=== PATIENT | male | born 1980 | race Caucasian/White ===

== ENCOUNTER → 2022-11-28 14:34 | Outpatient (BNVA) | payer OTHER, SELFPAY | PROVIDERS: Visit Provider Physician Assistant Surgical ==

== ENCOUNTER → 2023-01-02 11:20 | Outpatient (BNVA) | payer OTHER, SELFPAY | PROVIDERS: Visit Provider Surgery ==

== ENCOUNTER 2023-01-02 13:59 | Emergency (ER) | payer OTHER, SELFPAY ==
--- NOTE | ~2023-01-02 | XR_ITS ---
EXAMINATION: XR ANKLE, LEFT AND LEFT FOOT CLINICAL INFORMATION: Pain and swelling COMPARISON: None. TECHNIQUE: AP, lateral, and mortise views of the left ankle and foot were obtained. FINDINGS: 3 views of left fourth revealed no evidence of fracture or dislocation. Soft tissues are unremarkable. There is small plantar calcaneal spur. Left ankle 3 views revealed significant soft tissue swelling along the lateral malleolus, less prominent along the medial malleolus but no evidence of obvious fractures. XR/XR ankle LT 2V IMPRESSION: No fracture seen. Soft tissue swelling and plantar calcaneal spur
--- NOTE | ~2023-01-02 | XR_ITS ---
EXAMINATION: XR ANKLE, LEFT AND LEFT FOOT CLINICAL INFORMATION: Pain and swelling COMPARISON: None. TECHNIQUE: AP, lateral, and mortise views of the left ankle and foot were obtained. FINDINGS: 3 views of left fourth revealed no evidence of fracture or dislocation. Soft tissues are unremarkable. There is small plantar calcaneal spur. Left ankle 3 views revealed significant soft tissue swelling along the lateral malleolus, less prominent along the medial malleolus but no evidence of obvious fractures. XR/XR foot LT min 3V IMPRESSION: No fracture seen. Soft tissue swelling and plantar calcaneal spur
--- NOTE | 2023-01-02 14:16 | ED.LOWEXIN ---
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 Patient states that he got injured and had left hip pain, was evaluated for that and doing better. Patient states that he then tripped and now has left hip pain and left lower leg pain. Patient states that he has varicose veins but has never been evaluated for them. Patient denies any dizziness, lightheadedness, abdominal pain, nausea, vomiting, fever, chills, blurry vision, double vision, loss of vision, chest pain, difficulty breathing, shortness of breath, back pain, night sweats, pain with urination, increased urinary frequency, increased urinary urgency, blood in his urine or stool, syncope or a near syncopal episode, bowel incontinence, bladder incontinence, bowel retention, bladder retention, or any other complaints at this time. MD complaint: leg injury Onset (ago): day(s) Severity: mild Severity scale (1-10): 3 Related Data Home Medications Medication Instructions Recorded Confirmed ibuprofen 800 mg tablet 800 mg PO Q8H 01/02/23 01/02/23 multivitamin 1 tab PO DAILY 01/02/23 01/02/23 tumeric 100 mg-fernando 150 mg-olive cap PO 01/02/23 01/02/23 50 mg-oreg 150 mg-caprylate capsule Previous Rx's Medication Instructions Recorded prednisone 20 mg tablet 20 mg PO DAILY 7 days #7 tabs 01/02/23 Allergies Allergy/AdvReac Type Severity Reaction Status Date / Time No Known Allergies Allergy Verified 01/02/23 11:37 Review of Systems Constitutional: Constitutional: Reports no additional constitutional complaints, Denies chills, Denies fever(s) and Denies night sweats Eyes: Eyes: Reports no additional eye complaints, Denies blurry vision, Denies change in vision, Denies diplopia, Denies eye discharge, Denies loss of vision and Denies eye pain ENT: Denies dizziness Cardiovascular: Cardiovascular: Reports no additional cardiovascular complaints, Denies chest pain, Denies lightheadedness, Denies Loss of Consciousness and Denies dyspnea Respiratory: Respiratory: Reports no additional respiratory complaints and Denies dyspnea Gastrointestinal: Gastrointestinal: Reports no additional gastrointestinal complaints, Denies abdominal pain, Denies melena, Denies hematochezia, Denies change in bowel habits and Denies change in stool character Genitourinary: Genitourinary: Reports no additional male genitourinary complaints, Denies hematuria, Denies oliguria, Denies difficulty urinating, Denies dysuria, Denies urinary frequency, Denies urinary hesitancy, Denies urinary incontinence and Denies urinary urgency Musculoskeletal: Musculoskeletal: Reports no additional musculoskeletal complaints, Denies numbness and Denies tingling Comments: left lower leg pain, hip pain Neurologic: Denies dizziness, Denies loss of vision, Denies numbness and Denies tingling Psychiatric: Psychiatric: Reports no additional psychiatric complaints Endocrine: Endocrine: Reports no additional endocrine complaints Hematologic/Lymphatic: Hematologic/Lymphatic: Reports no additional hematologic/lymphatic complaints Allergic/Immunologic: Allergic/Immunologic: Reports no additional allergic/immunologic complaints [facility] Past Medical History Attestation statement: The following information was validated with the patient. Source: old records reviewed and nursing notes reviewed Surgical History Hx of carpal tunnel repair Family History Family History Mother No problems noted. Father No problems noted. Social History Social History Alcohol intake: current Alcohol intake frequency: holidays/special occasions only Patient Tobacco Use Status: Former Tobacco user Cigarettes Per Day: 9 Advance Directives: No Advance Directives Information Provided: No Physical Exam Vital Signs: Vital Signs: Last Vital Signs Temp 98.2 F 01/02/23 14:17 Pulse 82 01/02/23 14:17 Resp 16 01/02/23 14:17 BP 183/73 H 01/02/23 14:17 Pulse Ox 96 01/02/23 14:17 O2 Del Method Room Air 01/02/23 14:17 BMI result Body Mass Index 74.9 Const: General: cooperative, no acute distress, alert and awake Nutritional Appearance: well nourished Orientation/consciousness: patient oriented x3 Limitations: no limitations HEENT: Head: Yes normal to inspection and Yes atraumatic Ears: hearing grossly normal bilaterally and external ears normal General nose exam: Normal external nose present, no nasal discharge noted and no epistaxis Face and sinus: Yes normal facial exam, No abrasion and No laceration Mouth: Normal oral and palatal mucosa present, no drooling and no muffled voice Eyes: General: appearance normal, both eyes and all related structures Periorbital: periorbital findings normal Eyelids: Yes eyelids normal Conjunctivae: conjunctivae normal Pupils: Equal, round and reactive pupils present EOM: EOMs intact bilaterally Neck: Neck: Yes normal visual inspection, Yes full ROM and Yes no lymphadenopathy Chest: Chest palpation & inspection: normal inspection of the chest Resp: Effort & Inspection: normal respiratory effort and able to speak in complete sentences GI: Inspection: Yes normal to inspection Neuro: General: patient oriented x3 and moves all extremities Cranial nerves: Yes Equal, round and reactive pupils present Cognition (Neuro): normal cognition Motor exam (neuro): 5/5 motor strength present throughout Sensory Exam: Normal double simultaneous stimulation for sensation Coordination: ywdwyx-hg-[id number] test normal Extrem: Other: patient has left lower leg varicose veins General: Yes full ROM and Yes capillary refill normal Psych: Appearance: grossly normal Mental Status: mental status grossly normal Affect: normal affect Attitude: cooperative Thought process: Normal thought process present Thought content: Normal thought content present Insight: Good insight present (Psych) Course Course Course Narrative: This is a rapid medical exam. Deferred additional HPI, ROS, PE to primary provider. 42 yo male with history of obesity here with left hip pain with radiation down left leg after a work injury (fall) several weeks ago. Seen by [facility] and had x-rays but patient feels they aren't managing him appropriately. States they released me. They checked by hip but most of the pain is lower leg which they didn't check. WIll check x-rays VSS Medications Administered Discontinued Medications Generic Name Dose Route Start Last Admin Trade Name Freq PRN Reason Stop Dose Admin Ketorolac Tromethamine 15 mg 01/02/23 15:27 01/02/23 15:33 Ketorolac Tromethamine 15 Mg/Ml Vial IM 01/02/23 15:28 15 mg ONCE ONE Administration Medical Decision Making Medical Decision Making MDM Narrative: Patient is a 42 year old assigned male at with no reported medical history presenting to the emergency department today with left lower leg and left hip pain. Patient's physical exam was as noted in the physical exam portion of this chart. Patient's left foot and ankle x-ray showed no acute process. Patient's clinical presentation is most consistent with left lower extremity pain. I explained my physical exam findings as well as all test results to the patient. I answered all questions asked by the patient. Patient received IM Toradol which he stated helped his pain significantly. I stressed the importance of the patient taking his medication as prescribed. I stressed the importance of the patient following up with his primary care provider and an orthopedic provider. I stressed the importance of the patient returning to the emergency department immediately if his symptoms were to worsen or if he were to develop any dizziness, shortness of breath, difficulty breathing, chest pain, blurry vision, loss of vision, nausea, vomiting, abdominal pain, fever, chills, back pain, or any other complaints. Patient verbalized agreement and understanding with this treatment plan and discharge. Differential Diagnosis Differential Diagnoses: The differential diagnosis associated with the presentation includes left lower extremity pain, left lower leg pain Independent Interpretation I performed an independent interpretation of an: Plain X-Ray Interpretation: My interpretation is in agreement with the radiologist's impression of these imaging studies. EXAMINATION: XR ANKLE, LEFT AND LEFT FOOT CLINICAL INFORMATION: Pain and swelling COMPARISON: None. TECHNIQUE: AP, lateral, and mortise views of the left ankle and foot were obtained. FINDINGS: 3 views of left fourth revealed no evidence of fracture or dislocation. Soft tissues are unremarkable. There is small plantar calcaneal spur. Left ankle 3 views revealed significant soft tissue swelling along the lateral malleolus, less prominent along the medial malleolus but no evidence of obvious fractures. XR/XR foot LT min 3V IMPRESSION: No fracture seen. Soft tissue swelling and plantar calcaneal spur Dictated By: Angela Santso MD Signed By: Electronically signed by Angela Santos MD 01/02/23 1946 Discharge Plan Discharge Clinical Impression: Acute leg pain Patient Disposition: Home, Self-Care Instructions: Leg Pain (ED) Additional Instructions: Follow up with your primary care provider, a vascular surgeon for your varicose veins, and an orthopedic provider for your left lower leg pain. Return to the emergency department immediately if your symptoms worsen or if you develop any dizziness, shortness of breath, difficulty breathing, chest pain, blurry vision, loss of vision, nausea, vomiting, abdominal pain, fever, chills, back pain, or any other complaints. Prescriptions: New prednisone 20 mg tablet 20 mg PO DAILY 7 Days Qty: 7 0RF No Action ibuprofen 800 mg tablet 800 mg PO Q8H multivitamin Tablet 1 tab PO DAILY vevxtiq-svms-scrlr-oreg-capryl 100 mg-150 mg- 50 mg-150 mg capsule PO Referrals: [facility] [place] [facility] [place]Provider Group] (Call to establish and follow up with a primary care provider. If you already have a primary care provider, please follow up with them.) [facility] [place] [facility] [Provider Group] (Call to establish and follow up with a primary care provider. If you already have a primary care provider, please follow up with them.) [facility] [place] [facility],[place] [Provider Group] (Call to establish and follow up with a primary care provider. If you already have a primary care provider, please follow up with them.) [facility] [place] Orthopedic Surgeons [Provider Group] (Call to establish and follow up with an orthopedic provider for your left lower extremity pain.) [facility] [place] Vascular Services [Provider Group] (Call to establish and follow up on your varicose veins.) Stand Alone Forms: Work/School Release Interventions: ED Discharge Assessment Last Done: 01/02/23 15:31 Discharge Date/Time: 01/02/23 15:36 Print Language: Danish
[2023-01-02 14:17] VITALS: BP 183/73; PULSE 82; RESP 16; TEMP 36.8; O2SAT 96; BMI 74.9
[2023-01-02] MEDS: Ketorolac Tromethamine 15 MG/ML VIAL IM (15:33)
== END 2023-01-02 15:36 | disposition home or self-care (01) ==
PROVIDERS: Emergency Provider Emergency Medicine
DX: M79.605 Pain in left leg (principal); Z87.891 Personal history of nicotine dependence; Z79.899 Other long term (current) drug therapy
CPT/HCPCS: 73600; 73630; 96372; 99283; 99284; J1885

== ENCOUNTER 2023-01-09 08:51 | Outpatient (REF) | payer OTHER, SELFPAY ==
--- NOTE | ~2023-01-09 | XR_ITS ---
EXAMINATION: XR CHEST CLINICAL INFORMATION: Obesity COMPARISON: None available. TECHNIQUE: 2 views of the chest were obtained. FINDINGS: No significant abnormality is noted involving the heart, lungs, mediastinum, bony thorax or soft tissues. Degenerative changes of the spine. XR/XR chest 2V IMPRESSION: No evidence for acute disease in the chest.
--- NOTE | 2023-01-09 10:03 | ECG_ITS ---
Test Reason : morbid obesity Blood Pressure : / mmHG Vent. Rate : 075 BPM Atrial Rate : 075 BPM P-R Int : 164 ms QRS Dur : 092 ms QT Int : 368 ms P-R-T Axes : 042 -06 042 degrees QTc Int : 410 ms Normal sinus rhythm Normal ECG No previous ECGs available Referred By: Carrillo Britton Electronically Signed By:SADIA STEWART
[2023-01-09 10:17] LABS: MANUAL DIFF FLAG NO
[2023-01-09 10:44] LABS: Basophils Percent Auto 0.2 % (0-2); Eosinophils Percent Auto 0.4 % (0-4); Hematocrit 48.4 % (42.0-52.0); Hemoglobin 15.3 g/dl (14.0-18.0); Imm Gran Abs Auto 0.04 X10*3/uL (0.00-0.03); Imm Gran Pct Auto 0.4 % (0.0-0.4); Lymphocytes Absolute Auto 2.5 X10*3/uL (1.2-4.9); Lymphocytes Percent Auto 22.4 % (20-40); Mean Corpuscular HGB Conc 31.6 g/dl (31.0-36.0); Mean Corpuscular Hemoglobin 30.5 pg (27.0-33.0); Mean Corpuscular Volume 96.4 fL (80.0-98.0); Mean Platelet Volume 10.9 fL (9.4-12.4); Monocytes Absolute Auto 0.7 X10*3/uL (0.1-1.2); Monocytes Percent Auto 6.5 % (2-11); Neutrophils Absolute Auto 7.7 x10*3/uL (2.0-8.3); Neutrophils Percent Auto 70.1 % (45-73); Platelet Count 207 X10*3/uL (160-400); Red Blood Count 5.02 X10*6/uL (4.60-5.80); Red Cell Distribution Width 13.4 % (11.0-16.0)
[2023-01-09 10:55] LABS: Estimated Average Glucose 126 mg/dL
[2023-01-09 12:30] LABS: Alanine Aminotransferase 22 U/L (0-40); Albumin Level 3.7 g/dL (3.5-5.0); Alkaline Phosphatase 74 U/L (39-117); Anion Gap 13 (12-20); Aspartate Amino Transferase 19 U/L (5-37); Bilirubin Total 0.7 mg/dL (0.0-1.0); Blood Urea Nitrogen 13 mg/dL (9-16); C Reactive Protein 1.27 mg/dL (< or = 0.50); Calcium 8.5 mg/dL (8.4-10.2); Carbon Dioxide 28 mmol/L (22-29); Chloride 103 mmol/L (96-108); Cholesterol 150 mg/dL; Estimated Glomerular Filt Rate > 60; Glucose Random 93 mg/dL (60-115); HDL Cholesterol 43 mg/dL; Iron 113 mcg/dL (45-160); LDL Cholesterol Calculated 96 mg/dl; Percent Iron Saturation 45 % (15-50); Potassium 4.1 mmol/L (3.3-5.1); Sodium 140 mmol/L (135-145); Total Iron Binding Capacity 251 mcg/dL (228-428); Total Protein 7.6 g/dL (6.5-8.0); Triglycerides 56 mg/dL; Unsaturated Iron Binding 138 ug/dL
[2023-01-09 13:07] LABS: Ferritin 180 ng/mL (20-250); Folate 14.1 ng/mL (> or = 4.0); Insulin 21 uU/mL (2-29); TSH reflex Free T4 2.33 uIU/mL (0.32-4.0); Vitamin B12 489 pg/mL (200-900); Vitamin D 25-OH Total 23.9 ng/mL (>30)
[2023-01-12 14:32] LABS: Calcium (PTHI) 8.5 mg/dL (8.6-10.3); PTHI 73 pg/mL (16-77)
[2023-01-13 09:15] LABS: H Pylori Breath Test Negative (Negative)
[2023-01-13 12:28] LABS: Zinc 56 mcg/dL (60-130)
[2023-01-15 12:14] LABS: Vitamin B1 12 nmol/L (8-30)
[2023-01-15 15:54] LABS: Vitamin A 43 mcg/dL (38-98)
== END 2023-01-09 08:52 | disposition home or self-care (01) ==
LOC: HO.XRAY 08:51
PROVIDERS: Absent Provider Surgery; Visit Provider Physician Assistant
DX: Z01.818 Encounter for other preprocedural examination (principal); E66.01 Morbid (severe) obesity due to excess calories; Z68.45 Body mass index [BMI] 70 or greater, adult; K42.9 Umbilical hernia without obstruction or gangrene; G47.8 Other sleep disorders
CPT/HCPCS: 36415; 71046; 80053; 80061; 82306; 82607; 82728; 82746; 83013; 83036; 83525; 83540; 83970; 84425; 84443; 84590; 84630; 85025; 86140; 93005

== ENCOUNTER → 2023-01-23 13:56 | Outpatient (BNVA) | payer OTHER, SELFPAY | PROVIDERS: Referring Provider Physician Assistant; Visit Provider Dietitian, Registered | DX: E66.01 Morbid (severe) obesity due to excess calories (principal); Z68.45 Body mass index [BMI] 70 or greater, adult; Z71.3 Dietary counseling and surveillance | CPT/HCPCS: 97802 ==

== ENCOUNTER 2023-01-30 10:30 | Outpatient (AMB) | payer OTHER, SELFPAY ==
[2023-01-30 10:32] VITALS: BP 119/58; PULSE 80; TEMP 36.3; O2SAT 98; BMI 71.1
--- NOTE | 2023-01-30 10:32 | A.OFFVIS_ITS ---
Intake VS Expanded 01/30/23 10:32 Height 5 ft 10 in Weight 495 lb 9.6 oz BMI 71.1 BP 119/58 L Blood Pressure Location Rt brachial Blood Pressure Position Sitting Pulse 80 Pulse Source Pulse Oximeter Temp 97.3 F Temperature Source Temporal Artery Scan Pulse Oximetry 98 Oxygen Delivery Method Room Air Body Fat 273.2 Body Fat Percentage 55.1 Free Fat Mass 222.4 Muscle Mass 211.6 Visceral Mass 53.0 Water Mass 178.0 BMR 3,439 Intake Visit Reasons: (OV) F/U SWL Allergies No Known Allergies Allergy (Verified 01/30/23 10:36) Medication List - Last Reconciled 01/30/23 by ALEENA Kowalski-Praveen cholecalciferol (vitamin D3) 50 mcg PO DAILY multivitamin 1 tab PO DAILY nabumetone 500 mg PO BID xrxxpit-zqxa-psgrr-oreg-capryl 100 mg-150 mg- 50 mg-150 mg caps PO HPI HPI Comments History of Present Illness Details This is the patients second appt for SWL. Starting weight was 522.4 lbs on 01/02/23. TBWL is 26.6/5,1lbs or 5.1% TBWL. Pt has had 2 episodes of dizziness since starting the program.Drinks 7-8 bottles of water. Works 5d up 12 hours per day. Meal plan: wakes at 5 am coffee with monk fruit nad 2% milk 8am - shake - Premier 10:30 am - bar 1pm - vegetables with protein (turkey chickne pork cooked at home), melon or apple 4pm -yogurt 7-8 pm - shake- whey protein with2% milk 9pm - sometimes fruit or protein bar Exercise plan: none other than physical job, has alot of knee pain saw PCP and started on nabumetone Has ortho appt on 02/13 at Pre op work up completed as follows: SWL classes - appts - 02/20 appts - follow up on 02/27,enjoys both recipe books H pylori - negative Labs-vit d defic CXR and ECG - both normal ULS and UGI - orderded today PFSH Surgical History Hx of carpal tunnel repair Family History (Updated 01/23/23 @ 11:56 by MCKAYLA Burdick) Mother No problems noted. Father No problems noted. 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 Patient has low blood pressure whcih may be contributing to his dizziness episodes, will cotnineu to stay well hydrated. No changes to his mealplan - he is happy with plan. Exercise- must start - will start Kaleb Knappen wheelchair exercises 30 minuted 4d/ week for now. Sees ortho later this month for knee pain. All upcoming appt reviewed, will continue to send me his weights. Next appt 3 weeks with me. Patient is morbidly obese and is not considered stable at this time. I spent 30 minutes in total with patient reviewing/updating records, examining the patient and counseling the patient on weight management as detailed above. Orders: Orders FL upper GI w air Today E66.01 - Morbid (severe) obesity due to excess calories, Z01.818 - Encounter for other preprocedural examination US abdomen comp w elastography Today E66.01 - Morbid (severe) obesity due to excess calories, Z01.818 - Encounter for other preprocedural examination Medications: Refilled cholecalciferol (vitamin D3) 50 mcg PO DAILY 30 caps 4RF Coding Level of Care Code Est Pt Level 4 (50316) Diagnoses Morbid obesity due to excess calories E66.01
== END 2023-01-30 11:05 | disposition home or self-care (01) ==
PROVIDERS: Visit Provider Physician Assistant
DX: E66.01 Morbid (severe) obesity due to excess calories (principal); Z68.45 Body mass index [BMI] 70 or greater, adult
CPT/HCPCS: 99214

== ENCOUNTER 2023-01-30 10:30 | Outpatient (REF) | payer OTHER, SELFPAY ==
--- NOTE | ~2023-01-30 | XR_ITS ---
EXAMINATION: XR KNEE, RIGHT CLINICAL INFORMATION: Pain in right knee. COMPARISON: None available. TECHNIQUE: 2 views of the right knee. FINDINGS: There is moderate loss of medial and patellofemoral compartment joint space with moderate periarticular spurring in the patellofemoral and lateral compartments. No visible fracture, loose bodies or joint effusion seen. There is anterior soft tissue calcification along the proximal leg likely venous phleboliths. No acute fracture or dislocation seen. There is mild spurring along the anterosuperior tibial tubercle. XR/XR knee RT 2V IMPRESSION: 1. Degenerative arthritic changes medial and patellofemoral compartment with periarticular spurring. No visible acute fracture or dislocation seen. 2. There is anterior proximal leg soft tissue calcification likely venous phleboliths.
== END 2023-01-30 10:31 | disposition home or self-care (01) ==
LOC: HO.XRAY 10:30
PROVIDERS: Absent Provider Nurse Practitioner Family; PCP Nurse Practitioner Family; Visit Provider Physician Assistant
DX: M25.561 Pain in right knee (principal); E66.01 Morbid (severe) obesity due to excess calories
CPT/HCPCS: 73560

== ENCOUNTER 2023-02-13 07:42 | Outpatient (REF) | payer OTHER, SELFPAY ==
--- NOTE | ~2023-02-13 | XR_ITS ---
EXAMINATION: XR KNEE, RIGHT XR KNEE AP STANDING CLINICAL INFORMATION: Pain. COMPARISON: Radiographs dated 02/03/2023. TECHNIQUE: Lateral and axial views of the right knee were obtained. AP bilateral standing view of the knees was obtained. FINDINGS: Bony mineralization is normal. There is moderately severe asymmetric narrowing of the medial joint space compartment of the right knee. The lateral and patellofemoral joint space compartments are well-maintained. There is tricompartment peripheral osteophyte formation. There is no fracture, dislocation or significant joint effusion. The medial joint space compartment of the left knee is mildly narrowed, and the lateral joint space compartment is well-maintained. There is peripheral osteophyte formation of the lateral and medial joint space compartments of the left knee. There is a mild varus configuration of the right knee. No significant varus or valgus configuration is seen of the left knee. There are soft tissue calcifications suggesting bilateral lower extremity venous insufficiency. XR/XR knee standing BI IMPRESSION: 1. There is tricompartment osteoarthritic change of the right knee, most pronounced in the medial joint space compartment, where it is moderately severe. 2. There is a mild varus configuration of the right knee. 3. There is moderate osteoarthritic change of the medial joint space compartment of the left knee, and mild osteoarthritic change is seen of the lateral joint space compartment.
--- NOTE | ~2023-02-13 | XR_ITS ---
EXAMINATION: XR KNEE, RIGHT XR KNEE AP STANDING CLINICAL INFORMATION: Pain. COMPARISON: Radiographs dated 02/03/2023. TECHNIQUE: Lateral and axial views of the right knee were obtained. AP bilateral standing view of the knees was obtained. FINDINGS: Bony mineralization is normal. There is moderately severe asymmetric narrowing of the medial joint space compartment of the right knee. The lateral and patellofemoral joint space compartments are well-maintained. There is tricompartment peripheral osteophyte formation. There is no fracture, dislocation or significant joint effusion. The medial joint space compartment of the left knee is mildly narrowed, and the lateral joint space compartment is well-maintained. There is peripheral osteophyte formation of the lateral and medial joint space compartments of the left knee. There is a mild varus configuration of the right knee. No significant varus or valgus configuration is seen of the left knee. There are soft tissue calcifications suggesting bilateral lower extremity venous insufficiency. XR/XR knee RT 2V IMPRESSION: 1. There is tricompartment osteoarthritic change of the right knee, most pronounced in the medial joint space compartment, where it is moderately severe. 2. There is a mild varus configuration of the right knee. 3. There is moderate osteoarthritic change of the medial joint space compartment of the left knee, and mild osteoarthritic change is seen of the lateral joint space compartment.
== END 2023-02-13 07:43 | disposition home or self-care (01) ==
LOC: HO.HOSX 07:42
PROVIDERS: Visit Provider Physician Assistant
DX: M17.11 Unilateral primary osteoarthritis, right knee (principal); E66.01 Morbid (severe) obesity due to excess calories; Z68.45 Body mass index [BMI] 70 or greater, adult
CPT/HCPCS: 20610; 73560; 73565; J1040

== ENCOUNTER 2023-02-13 09:57 | Outpatient (AMB) | payer OTHER, SELFPAY ==
[2023-02-13 10:30] VITALS: BMI 103.4
--- NOTE | 2023-02-13 10:30 | MHC.OFFVIS ---
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 Patient reports he fell at work landing on his left lower side. States he is having pain in his lateral aspect of his ankle. Denies numbness and tingling in toes . Seen at an urgent center who took xrays and was told he was fit to return to work. Patient states he went back to work and his ankle pain increase. Also has right knee pain. Pain is currently a 3/10 and after work his pain increase to a 11/10 per patient. Allergies No Known Allergies Allergy (Verified 02/13/23 10:35) HPI SAP BW ARCHITECT- left lower leg pain HPI Details 42-year-old male, who is Mauritanian speaking, presents in the office today, as a new patient, for an evaluation of left ankle pain. The patient reports he fell at work landing on his left side. He claims to have pain on the lateral aspect of the left ankle. He denies numbness or tingling in his toes. He was seen at Urgent care and was told he was fit to return to work. He states he returned to work and this caused an increase in pain. Patient also reports right knee pain. He claims to have 3/10 pain, with an increase in pain after he gets off work at an 11/10. He states the knee has been hurting for a long time. [facility] Surgical History Hx of carpal tunnel repair Family History Mother No problems noted. Father No problems noted. 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 Cognitive needs: No Hearing needs: No Vision needs: Yes (Glasses) Review of Systems Const All systems reviewed & are unremarkable except as noted in HPI and below Physical Exam Vital Signs: BMI result Body Mass Index 103.4 Const General: cooperative and no acute distress Orientation/consciousness: patient oriented x3 Resp Effort & Inspection: normal respiratory effort and able to speak in complete sentences Cardio Peripheral pulses: Peripheral pulses 2+ throughout Skin General skin exam: no rashes or lesions noted Neuro General: patient oriented x3 Extrem Other: Right knee: Normal to inspection. No ecchymosis, erythema, or joint effusion. No tenderness to palpation to the medial or lateral joint lines. Full knee extension and flexion. Crepitus felt with ROM. NVI. Office Procedures Joint Injection/Drain Joint Injection/Drain Primary Site: right knee Prep: site was prepped using aseptic technique, ethochloride spray was applied and injection warnings given Injected: 80 mg of, DepoMedrol, with 8 mL of (2% plain lido ) and in the joint Approach Used: anterolateral Procedure: The patient tolerated the procedure well, but had some pain with the injection and there was some relief with the local anesthesia Coding 51898 - Large joint Procedure code (CPT) selection complete Results Reviewed Results Reviewed: 02/13/23 10:52 Lidocaine HCl 2 % MPF [Xylocaine 2 % MPF] 5 ml .ROUTE .STK-MED ONE methylPREDNISolone acetate [DEPO-MedroL] 80 mg .ROUTE .STK-MED ONE Assessment & Plan Assessment & Plan (1) Degenerative arthritis of right knee: Code(s): M17.11 - Unilateral primary osteoarthritis, right knee (2) BMI 70 and over, adult: Code(s): Z68.45 - Body mass index [BMI] 70 or greater, adult (3) Morbid obesity due to excess calories: Code(s): E66.01 - Morbid (severe) obesity due to excess calories Plan Mr. Odom is a 42-year-old male, who is Mauritanian speaking, presents in the office today, as a new patient, for an evaluation of left ankle pain. The patient reports he fell at work landing on his left side. He claims to have pain on the lateral aspect of the left ankle. He denies numbness or tingling in his toes. He was seen at Urgent care and was told he was fit to return to work. He states he returned to work and this caused an increase in pain. Patient also reports right knee pain. He claims to have 3/10 pain, with an increase in pain after he gets off work at an 11/10. He states the knee has been hurting for a long time. The patient was offered a cortisone injection in the right knee with 80 mg of DepoMedrol. The patient was explained the risk, benefits, and alternatives to receiving this injection. After receiving consent for the injection, the patient had the procedure done while in office today. The patient tolerated the procedure well with no complications. Follow up will be PRN, or sooner if needed. X-rays of the right knee which were obtained while in the office today and were reviewed by me, Janina Monroy PA-C, revealed significant osteoarthritis Orders: Orders XR knee RT 2V Today M25.569 - Pain in unspecified knee XR knee standing BI Today M25.569 - Pain in unspecified knee Patient Instructions: Scribed for Janina Monroy PA-C by Sol Mack director medical science, on 02/13/2023 at 9:59 am, EST. Your attestation Coding Level of Care Code New Pt Level 4 (54158) Diagnoses Degenerative arthritis of right knee M17.11 BMI 70 and over, adult Z68.45 Morbid obesity due to excess calories E66.01 CPT Codes Coding - 95706 Large joint: 73239 - Large joint ([id number])
== END 2023-02-13 11:08 | disposition home or self-care (01) ==
PROVIDERS: Visit Provider Physician Assistant
DX: M17.11 Unilateral primary osteoarthritis, right knee (principal); Z68.45 Body mass index [BMI] 70 or greater, adult; E66.01 Morbid (severe) obesity due to excess calories
CPT/HCPCS: 20610; 99204

== ENCOUNTER 2023-02-20 09:54 | Outpatient (REF) | payer OTHER, SELFPAY ==
--- NOTE | ~2023-02-20 | US_ITS ---
EXAMINATION: US COMPLETE ABDOMEN WITH LIVER ELASTOGRAPHY CLINICAL INFORMATION: Morbid-severe obesity. COMPARISON: None available. TECHNIQUE: Real-time imaging of the abdominal viscera. Noninvasive ultrasound liver fibrosis assessment is performed using Vera ElastPQ point quantification shear wave elastography (2D-SWE) with a C5-2 MHz transducer. Multiple elastography samples are obtained. FINDINGS: PANCREAS: Normal. The visualized pancreatic head and body are normal in appearance. The remainder of the pancreas is obscured from visualization by the overlying bowel gas. ABDOMINAL AORTA: The proximal aortic segments are normal in caliber. The mid and the distal aortic segments are not visualized. INFERIOR VENA CAVA: Visualized portions are normal. LIVER: Normal. The liver demonstrates normal size, contour and diffuse increased echogenicity. No focal lesion or intrahepatic biliary duct dilatation. The right lobe measures 20.0 cm in length. The left lobe measures 13.6 cm in length. Portal flow is hepatopedal. Shear wave liver elastography median stiffness is 0.14 m/s (reference: normal median stiffness is 1.3 m/s or less). IQR/median stiffness to assess sampling precision is 0.14 (reference: good quality data set is IQR/median stiffness of 0.15 or less). The elastography is slightly limited due to overlying bowel gas and patient's body habitus. GALLBLADDER: Normal. The gallbladder is physiologically distended without evidence of stones, sludge, polyps, wall thickening or pericholecystic fluid. COMMON BILE DUCT: Normal in caliber measuring 0.4 cm in diameter. RIGHT KIDNEY: Normal. No hydronephrosis. No renal calculi or focal parenchymal lesions. The kidney measures 14.0 cm in maximum dimension. LEFT KIDNEY: Normal. No hydronephrosis. No renal calculi or focal parenchymal lesions. The kidney measures 13.5 cm in maximum dimension. SPLEEN: Normal. The spleen measures 11.1 cm in maximum dimension. FREE FLUID: None. US/US abdomen comp w elastography IMPRESSION: Diffuse hepatic echogenicity without focal lesion. The rest of the abdominal ultrasound is unremarkable. Liver elastography: Median liver stiffness measures 2.44 m/s, suggestive of CSPH. REFERENCE: Society of Radiologists in Ultrasound Liver Stiffness Thresholds (2020): LIVER STIFFNESS THRESHOLDS: *Liver Stiffness equal or less than 1.3 m/s: High probability of being normal. *Liver Stiffness less than 1.7 m/s: In the absence of other known clinical signs, rules out compensated advanced chronic liver disease. *Liver Stiffness 1.7-2.1 m/s: Suggestive of compensated advanced chronic liver disease to severe obesity but need further test for confirmation. *Liver Stiffness over 2.1 m/s: Rules in compensated advanced chronic liver disease. *Liver Stiffness over 2.4 m/s: Suggestive of clinically significant portal hypertension. QUALITY OF DATA SET: *IQR/Median value equal or less than 0.15 implies a quality data set. *IQR/Median value over 0.15 implies a poor quality data set. SIGNIFICANT CHANGE FROM PRIOR EXAM: Significant change if liver stiffness measurement is 10% or greater from prior exam. OTHER CONSIDERATIONS: The stage of liver fibrosis may be overestimated in the setting of acute hepatitis, liver inflammation, elevated liver function tests, hepatic vascular congestion, obstructive cholestasis, non-fasting state, and infiltrative diseases such as amyloidosis and lymphoma. In some patients with NAFLD, the liver stiffness thresholds for compensated advanced chronic liver disease may be lower. In causes other than viral hepatitis and NAFLD, liver stiffness thresholds are not well established.
== END 2023-02-20 09:55 | disposition home or self-care (01) ==
LOC: HO.US 09:54
PROVIDERS: Visit Provider Physician Assistant
DX: Z01.818 Encounter for other preprocedural examination (principal); E66.01 Morbid (severe) obesity due to excess calories
CPT/HCPCS: 76705; 76981

== ENCOUNTER 2023-02-26 15:24 | Outpatient (AMB) | payer OTHER, SELFPAY ==
--- NOTE | 2023-02-26 15:25 | A.OFFVIS_ITS ---
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 TBWL of 35.8 lbs or 6.8%. Meal plan 5:30 am - coffee, 2% milk, sugar free syrup 8:30 - Premier shake 10:30 - protein bar 1 pm - caulflower rice and protein- 4d/week tuna with broccoli - other days. 4pm - yogurt Then showers and goes to bed over the last 2 weeks. Exercise - none, has physical job and is too tired.3 Pre op work up completed as follows: SWL classes -? appts - 02/20 ?- not yet ? RD appts - follow up on 02/27,enjoys both recipe books? H pylori - negative Labs-vit d defic CXR and ECG - both normal ULS and UGI - 04/24 PFSH Surgical History Hx of carpal tunnel repair Family History Mother No problems noted. Father No problems noted. 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 5;30 coffee 6am - shake 9am - shake 11 am - bar 1pm - 6 oz protien and veg 4pm - yogurt 7pm- shake Exercise - 1.5 miles 40 minutes -2d/week - probably too hard for him at this time. During the week - Kaleb Fermin videos 4d/week, if no walking then 5d/ wk. Will reschedule BH now, sees RD tomorrow. Me in 3 weeks. Coding Level of Care Code Est Pt Level 4 (09606) Diagnoses Morbid obesity due to excess calories E66.01
[2023-02-26 15:27] VITALS: BP 151/69; PULSE 87; TEMP 36.5; O2SAT 96; BMI 69.8
== END 2023-02-26 16:33 | disposition home or self-care (01) ==
PROVIDERS: Visit Provider Physician Assistant
DX: E66.01 Morbid (severe) obesity due to excess calories (principal)
CPT/HCPCS: 99214

== ENCOUNTER → 2023-02-26 15:51 | Outpatient (REF) | payer OTHER, SELFPAY | LOC: HO.SL 15:51 | PROVIDERS: PCP Nurse Practitioner Family; Visit Provider Surgery | DX: G47.33 Obstructive sleep apnea (adult) (pediatric) (principal); G47.8 Other sleep disorders; R06.83 Snoring | CPT/HCPCS: 95806 ==

== ENCOUNTER → 2023-02-26 16:03 | Outpatient (BNV) | payer OTHER, SELFPAY | PROVIDERS: PCP Nurse Practitioner Family; Visit Provider Internal Medicine | DX: G47.33 Obstructive sleep apnea (adult) (pediatric) (principal) | CPT/HCPCS: 95806 ==

== ENCOUNTER 2023-02-27 13:49 | Outpatient (AMB) | payer OTHER, SELFPAY ==
--- NOTE | 2023-02-27 13:52 | MHC.AMNUTRGE ---
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 pt notes he wasn't following his plan because he is very tired of the shakes/bars . sometimes would get home from work and shower, and go right to bed without having a shake. 5;30 coffee ?6am - Premier shake - wants to use body fortress because it is cheaper. Looked at nutrition label together and explained 1 scoop is 30g protein. ?9am - shake 11 am - Pure protein bar ?1pm - 6oz protein and veg - he made the rice and beans recipe in the program recipe book and thought it was very good. 4pm - yogurt 7pm- shake SWL online classes: none yet Exercise: has a very bad knee Previous weight loss methods attempted tried to pursue bariatric surgery at age 20 400# in [place] but no insurance. Second attempt in [place] and lost insurance ws dread 2007 and was 450# Diagnosis Nutrition problem #1 overweight/obesity As related to (etiology) #1 excess energy intake and physical inactivity As evidenced by (sign/symptom) #1 high BMI Monitoring/Goals Nutrition problem monitoring total energy intake, level of knowledge/skill, total PRO intake, total CHO intake and weight Outcome progress progressing Learning/Education Readiness to learn excellent Stages of change action Educational materials provided Yes Most Recent Diabetes Results: No Data to Display PFSH Surgical History Hx of carpal tunnel repair Family History Mother No problems noted. Father No problems noted. 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 Will complete online classes and f/u with me on 04/03 12pm , is seeing Virginia at 11am Coding Level of Care Code Nutr Indiv Subseq (09596) Diagnoses Morbid obesity due to excess calories E66.01 Time Spent (min) 30
== END 2023-02-27 14:27 | disposition home or self-care (01) ==
PROVIDERS: Visit Provider Dietitian, Registered
DX: E66.01 Morbid (severe) obesity due to excess calories (principal)

== ENCOUNTER → 2023-02-27 13:49 | Outpatient (BNVA) | payer OTHER, SELFPAY | PROVIDERS: Visit Provider Dietitian, Registered | DX: E66.01 Morbid (severe) obesity due to excess calories (principal); Z71.3 Dietary counseling and surveillance | CPT/HCPCS: 97803 ==

== ENCOUNTER 2023-03-20 08:24 | Outpatient (AMB) | payer OTHER, SELFPAY ==
--- NOTE | 2023-03-20 08:35 | MHC.OFFVISWM ---
Intake VS Expanded 03/20/23 08:38 Height 5 ft 10 in Weight 484 lb BMI 69.4 BP 162/78 H Blood Pressure Location Rt brachial Blood Pressure Position Sitting Pulse 70 Pulse Source Pulse Oximeter Temp 96 F L Temperature Source Tympanic Pulse Oximetry 100 Oxygen Delivery Method Room Air Body Fat 262.8 Body Fat Percentage 54.3 Free Fat Mass 221.2 Muscle Mass 221.2 Visceral Mass 51.0 Water Mass 176.8 BMR 3,400 Intake Visit Reasons: (OV) F/U SWL Allergies No Known Allergies Allergy (Verified 03/20/23 08:37) Medication List - Last Reconciled 03/20/23 by ALEENA Kowalski-Praveen cholecalciferol (vitamin D3) 50 mcg PO DAILY multivitamin 1 tab PO DAILY nfgkipm-rkmz-zhtwi-oreg-capryl 100 mg-150 mg- 50 mg-150 mg caps PO HPI HPI Comments History of Present Illness Details 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 TBWL is 38.4 lbs or 7.4%. Only 1.5 lbs lost since last appt. Has been working a lot lately - 12 hours later 5d/week. PCP - saw PCP - no BP issues there. 5:30 am - shake - Premier 30 grams 9am - Atkins - 15 grams shake 11 am- bar 1pm - 1.5 cups chick pea pasta with meat and 1 cup vegetables. Crystal Light or water 4pm - yogurt 7-8 pm -Premeir shake - may skip if VERY tired. States does not skip any of the MR's No exercise due to long work hours. Had cortisone injection in R knee - with no resolution of pain. Pre op work up completed as follows: SWL classes -? appts - 02/20 ?- not yet ?- 04/03 RD appts - follow up on 02/27,enjoys both recipe books, follow up on 04/03? H pylori - negative Labs-vit d defic CXR and ECG - both normal ULS - fatty liver UGI - 04/24 SS - 03/04, needs in lab titration study for severe ANDREIA. ?Ordered urgently today. [facility] Surgical History Hx of carpal tunnel repair Family History Mother No problems noted. Father No problems noted. 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 His R knee pain is not improved after cortisone injection - he will call the Ortho dept for further treatment options due to his severe OA of both knees. Inthe meant iem I prescribed 600 mg Ibuprofen 20 minutes before exercise. On days off - start the PE sitting exercises. I will discuss his lack of weight loss with Ingrid for some guidance. Next appt with me in 3 weeks, all upcoming appts reviewed with patient. Patient is morbidly obese and is not considered stable at this time. I spent 30 minutes in total with patient reviewing/updating records, examining the patient and counseling the patient on weight management as detailed above. (2) Sleep apnea: Code(s): G47.30 - Sleep apnea, unspecified Plan: In lab titration study ordered urgently. Orders: Orders RT PSG in-lab sleep study Today G47.30 - Sleep apnea, unspecified, Z68.45 - Body mass index [BMI] 70 or greater, adult Medications: New ibuprofen 600 mg PO Q8H PRN 60 tabs 0RF pain Coding Level of Care Code Est Pt Level 4 (13032) Diagnoses BMI 70 and over, adult Z68.45 Sleep apnea G47.30
[2023-03-20 08:38] VITALS: BP 162/78; PULSE 70; TEMP 35.5; O2SAT 100; BMI 69.4
== END 2023-03-20 09:14 | disposition home or self-care (01) ==
PROVIDERS: PCP Nurse Practitioner Family; Visit Provider Physician Assistant
DX: E66.01 Morbid (severe) obesity due to excess calories (principal); Z68.44 Body mass index [BMI] 60.0-69.9, adult; G47.30 Sleep apnea, unspecified
CPT/HCPCS: 99214

== ENCOUNTER → 2023-03-20 08:24 | Outpatient (BNVA) | payer OTHER, SELFPAY | PROVIDERS: PCP Nurse Practitioner Family; Visit Provider Physician Assistant ==

== ENCOUNTER 2023-04-03 10:55 | Outpatient (AMB) | payer OTHER, SELFPAY ==
--- NOTE | 2023-04-03 12:12 | MHC.AMNUTRGE ---
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 this week worked 55 hours in 5 days straight . Recommended he log food for a few days - which he did. Showed me today. A few outliers include a full bag of microwave popped popcorn light butter , and 2 no sugar monster energy drinks. 5;30 coffee ?6am - Premier shake - powder 2 scoop with 8oz 2% milk ?9am - shake - premade premier 11 am - Pure protein bar ?1pm - doesn't measure on a scale but estimates based on how much of a package of meat he eats. 6oz protein and veg - he made the rice and beans recipe in the program recipe book and thought it was very good. Recently did a meatloaf - (24oz made 6 servings = 4oz each) 4pm - yogurt 7pm- shake powder 2 scoops 2% milk SWL online classes: 09/24 Exercise: has a very bad knee Previous weight loss methods attempted tried to pursue bariatric surgery at age 20 400# in [place] but no insurance. Second attempt in [place] and lost insurance ws dread 2007 and was 450# Dietary counseling reduction Diagnosis Nutrition problem #1 overweight/obesity As related to (etiology) #1 excess energy intake and physical inactivity As evidenced by (sign/symptom) #1 high BMI Monitoring/Goals Nutrition problem monitoring total energy intake, level of knowledge/skill, total PRO intake, total CHO intake and weight Outcome progress progressing Learning/Education Readiness to learn excellent Stages of change action Educational materials provided Yes Most Recent Diabetes Results: No Data to Display PFSH Surgical History Hx of carpal tunnel repair Family History Mother No problems noted. Father No problems noted. 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 Stick with the same products now. Has started losing weight again. recommended now dropping his AM shake, revised plan below: 5;30 coffee 8am - shake - Premier powder 2 scoops in 8oz 2% milk = 38g 11 am - Pure protein bar 20g 1pm - 4-6 oz protien and veg - get food scale = approx 35g 4pm - yogurt = 15g 7pm- shake premier powder 2 scoops in 8oz 2% milk = 38g = 146g finish online classes and f/u wtih me in 1 mo 05/08 11:30, he needs thursday appts due to work schedule. Will follow up about Wendys appointment and sleep study Coding Level of Care Code Nutr Indiv Subseq ([id number]) Diagnoses Morbid (severe) obesity due to excess calories E66.01 Time Spent (min) 30
[2023-04-03 12:49] VITALS: BMI 68.3
== END 2023-04-03 12:54 | disposition home or self-care (01) ==
PROVIDERS: Visit Provider Dietitian, Registered
DX: E66.01 Morbid (severe) obesity due to excess calories (principal)

== ENCOUNTER → 2023-04-03 10:55 | Outpatient (BNVA) | payer OTHER, SELFPAY | PROVIDERS: Visit Provider Dietitian, Registered | DX: E66.01 Morbid (severe) obesity due to excess calories (principal); Z68.44 Body mass index [BMI] 60.0-69.9, adult; Z71.3 Dietary counseling and surveillance | CPT/HCPCS: 97803 ==

== ENCOUNTER 2023-04-17 10:27 | Outpatient (AMB) | payer OTHER, SELFPAY ==
--- NOTE | 2023-04-17 10:30 | A.OFFVIS_ITS ---
Intake VS Expanded 04/17/23 10:37 BP 139/66 Blood Pressure Location Rt brachial Blood Pressure Position Sitting Pulse 81 Pulse Source Pulse Oximeter Temp 96.5 F L Temperature Source Temporal Artery Scan Pulse Oximetry 97 Oxygen Delivery Method Room Air Height 5 ft 10 in Weight 481 lb 12.8 oz BMI 69.1 Body Fat % 54.2 Body Fat Mass 261.0 Fat Free Mass 220.6 Visceral Fat Rating 50.0 Body Water % 36.7 Body Water Mass 176.6 Muscle Mass/Score 210.2 Basal Metabolic Rate/Score 3,390 Intake Visit Reasons: (OV) F/U SWL Allergies No Known Allergies Allergy (Verified 04/17/23 10:40) HPI HPI Comments History of Present Illness Details 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 No BM for 3, normally was 2 times per day. Meal plan since seeing Ingrid last - not enough money to buy products this past week. Will buy shakes again this week. Has been small portions of regular food this week. Exercise - 2 d last week - - 30 minutes. Did not look at PE videos yet. Pre op work up completed as follows: SWL classes -? 02/24 appts - 02/20 ?- not yet ?- 04/03, follow up 04/23, Mahnaz TURPIN appts - follow up on 02/27,enjoys both recipe books, follow up on 04/03, 05/08 H pylori - negative Labs-vit d defic CXR and ECG - both normal ULS - fatty liver UGI - 04/24 SS - 03/04, needs in lab titration study for severe ANDREIA. ? scheduled for 04/24 [facility] Surgical History Hx of carpal tunnel repair Family History Mother No problems noted. Father No problems noted. 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 Still not exercising - last week did for 2 days for the first time - said it was OK - standing. Pre op work up will be completed next week with UGI and SS tiration study Has follow ups with Mahnaz and Evon upcoming. Will restart meal plan. States he will try to do PE videos 4 d/week to start. I have encouraged him to text with me with exercise routine completed. Next appt with me in 3 weeks. (2) Sleep apnea: Code(s): G47.30 - Sleep apnea, unspecified Medications: New docusate sodium (Colace) 100 mg PO BID 60 caps 4RF inulin (Fiber Gummies) 2 grams PO BID 60 tabs 4RF Coding Level of Care Code Est Pt Level 4 (87630) Diagnoses Morbid obesity due to excess calories E66.01 Sleep apnea G47.30
[2023-04-17 10:37] VITALS: BP 139/66; PULSE 81; TEMP 35.8; O2SAT 97; BMI 69.1
== END 2023-04-17 11:05 | disposition home or self-care (01) ==
PROVIDERS: PCP Nurse Practitioner Family; Visit Provider Physician Assistant
DX: E66.01 Morbid (severe) obesity due to excess calories (principal); G47.30 Sleep apnea, unspecified
CPT/HCPCS: 99214

== ENCOUNTER → 2023-04-17 10:27 | Outpatient (BNVA) | payer OTHER, SELFPAY | PROVIDERS: PCP Nurse Practitioner Family; Visit Provider Physician Assistant | DX: G47.30 Sleep apnea, unspecified (principal); Z68.45 Body mass index [BMI] 70 or greater, adult ==

== ENCOUNTER 2023-04-23 12:24 | Outpatient (AMB) | payer OTHER, SELFPAY ==
--- NOTE | 2023-04-23 12:33 | A.OFFWM_ITS ---
Intake Intake Visit Reasons: (OV) BH Intake Allergies No Known Allergies Allergy (Verified 04/24/23 12:47) PFSH Surgical History Hx of carpal tunnel repair Family History Mother No problems noted. Father No problems noted. 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 PT is interested in bariatric surgery as he has always been obese and his weight got out of control the past few years. PT denied ever been in mental health counseling, and/or hospitalized/crisis, also denies any safety concerns around self/other-harm and states he has never dealt with SI/SA. However, patient reports a history of eating when depressed. Scores from BES indicate lower rosk for binge eating, however PHQ9 scores where elevated, so it will be repeated next appointment. Presenting Concerns Referral Source WMP Provider. Reason for referral Completion of behavioral health assessment as part of process for weight-loss surgery. Precipitating Event Morbid obesity, increased back/knee issues. Living Situation Current Living Situation Rent At risk of losing current housing? No Satisfied with current living situation? Yes Comments Ptlives alone. Food/Weight/Diet Expectations of change Pt is unsure about what he wants as he has never been skinny, but he wants to be more active, able to play sports and live longer for his kid. History/Relationship with food Reported a hx of eating more when depressed. Was in a prison from [phone] and was eating out a lot. . Example of meals before starting program Breakfast: omelets with toast and juice. Lunch: Pasta or rice with beans/meat Dinner: Home made style food or fast food/take out. Night snacks when didn't have to work on the next day. History/Relationship with weight Been obese since childhood. Lowest weight in last 10 years - 330Lbs Highest almost 530Lbs. Binge Eating Do you frequently eat large amounts of food in short periods of time, not feeling physically hungry? No Do you feel out of control when you eat a large amount of food in a short period of time? No Do you eat large amounts of food rapidly and typically alone? No Night Eating Do you wake up at least once during the night to eat? No If you wake up in the night, do you find that it is necessary to eat something in order to fall back asleep? No Do you have little or no appetite in the morning and feel very hungry in the evening, often overeating between dinner and when you go to bed? No Social History Family history and relationship 2 years ago. Father . Mother and brother in [place]. 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 currently [facility] Social support Mother. co-workers. Community support None. Gnosticism/Spirituality Grew up as orthodox but he doesn't practice. At times attends [employer] yarsanism. Cultural/Ethnic information Nepalese. Moved to the 3 years ago. Kazakh-speaking only. Legal Involvement and History Current or historical involvement with the legal system? None. Education Highest grade completed 12th grade. Preferred learning style Auditory, Verbal, Written, Learn by doing and Visual Currently enrolled in educational program? No Interested in further educational program? No Educational Interests/Skills Crafting. 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 No Meaningful activities [employer] Financial Situation Describe current financial situation Comfortable and Occasional struggle Financial assistance? None Service Service? No Mental Health and Addiction Treatment Current/Past substance abuse? No Comments Occasional use of cannabis for pain. Current/Past addictive behavior concerns? No Psychiatric history Never been in counseling, hospitalized for mental health and/or in crisis. Denied Any past/current concern with SI/SA, self/other-harm. Medical and Physical Health Summary Additional Medical History not covered in history None reported Sexual History concerns None reported Physical exam in the last year? Yes Pain Screening Current pain? Yes (Knee and back.) Pain in the last few months? Yes Medications0 Is the patient compliant with medications? Yes Does the patient have Duggan Guardian in place? Not applicable Does the patient use complimentary health approaches? No Trauma/Abuse History History of trauma? Yes (When became homeless in 2020.) Questionnaires PHQ-9 Over the last 2 weeks, how often have you been bothered by any of the following problems? 1. Little interest or pleasure in doing things: several days 2. Feeling down, depressed, or hopeless: more than half the days 3. Trouble falling or staying asleep, or sleeping too much: more than half the days 4. Feeling tired or having little energy: more than half the days 5. Poor appetite or overeating: more than half the days 6. Feeling bad about yourself - or that you are a failure or have let yourself or your family down: more than half the days 7. Trouble concentrating on things, such as reading the newspaper or watching television: several days 8. Moving or speaking so slowly that other people could have noticed. Or the op posite - being so fidgety or restless that you have been moving around a lot more than usual: several days 9. Thoughts that you would be better off or of hurting yourself in some way: not at all Total score: 13 Depression Screening Interpretation: Positive (Scores indicate moderate Sx. ) Depression Screening Follow-up: Follow-up Visit Requested Depression Screening Done: Yes 61834 - PHQ-9 Billing: Yes Source: Developed by Drs. Nik Silvestre, Tia Mariee, Tavares Elliott and colleagues, with an educational anthony from [employer] / [employer]. Assessment & Plan Assessment & Plan (1) Adjustment disorder: Code(s): F43.20 - Adjustment disorder, unspecified Qualifiers: Adjustment disorder type: unspecified type Qualified Code(s): F43.20 - Adjustment disorder, unspecified Plan Patient will follow up with this provider to finish assessment and get support around habit building, consistency with meal plan and mindset to improve consistency with pre-surgery program expectations, and also prepare him for post-surgery process/challenges. PHQ-9 will be repeated due to moderate scores. NEXT MEGHANA 05/28 at 2pm - in person. Coding Level of Care Code New Pt Tele Psy Diag Eval (00920) Patient Type New Diagnoses Adjustment disorder, unspecified type F43.20 Adjustment disorder type: unspecified type Time Spent (min) 60
== END 2023-04-23 14:58 | disposition home or self-care (01) ==
PROVIDERS: Visit Provider Counselor Mental Health
DX: F43.20 Adjustment disorder, unspecified (principal)
CPT/HCPCS: 90791

== ENCOUNTER → 2023-04-23 12:24 | Outpatient (BNVA) | payer OTHER, SELFPAY | PROVIDERS: Visit Provider Counselor Mental Health ==

== ENCOUNTER 2023-04-24 07:48 | Outpatient (REF) | payer OTHER, SELFPAY | END 2023-04-24 07:49 | disposition home or self-care (01) | LOC: HO.XRAY 07:48 | PROVIDERS: PCP Nurse Practitioner Family; Visit Provider Physician Assistant | DX: Z01.818 Encounter for other preprocedural examination (principal); E66.01 Morbid (severe) obesity due to excess calories; Z68.45 Body mass index [BMI] 70 or greater, adult; M17.11 Unilateral primary osteoarthritis, right knee | CPT/HCPCS: 74246 ==

== ENCOUNTER → 2023-04-24 07:49 | Outpatient (BNV) | payer OTHER, SELFPAY | PROVIDERS: PCP Nurse Practitioner Family; Visit Provider Radiology Diagnostic Radiology | DX: Z01.818 Encounter for other preprocedural examination (principal); E66.01 Morbid (severe) obesity due to excess calories | CPT/HCPCS: 74246 ==

== ENCOUNTER 2023-04-24 12:37 | Outpatient (AMB) | payer OTHER, SELFPAY ==
--- NOTE | 2023-04-24 12:46 | MHC.OFFVIS ---
Intake Vital Signs 04/24/23 12:47 Height 5 ft 10 in Weight 481 lb BMI 69.0 Intake Visit Reasons: New Prob - B/L Knee pain Intake Note: Darryl is a 42 year old female who presents today for a evaluation for his bilateral knee pain. Patient reports his last inecjtion didn't help. He states that his pain is a little worse. Allergies No Known Allergies Allergy (Verified 04/24/23 12:47) HPI New Prob - B/L Knee pain HPI Details 42-year-old male, who is Stateless speaking, presents in the office today for a follow up of bilateral knee pain. The patient had a cortisone injection in the right knee on 02/13/2023. He claims the last injection gave him no relief. He reports his pain has increased since being seen in the office last. [facility] Surgical History Hx of carpal tunnel repair Family History Mother No problems noted. Father No problems noted. 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 No ecchymosis, erythema, or joint effusion. No tenderness to palpation to the medial or lateral joint lines. Full knee extension and flexion. Crepitus felt with ROM. NVI. Assessment & Plan Assessment & Plan (1) Degenerative arthritis of right knee: Code(s): M17.11 - Unilateral primary osteoarthritis, right knee Qualifiers: Osteoarthritis type: unspecified Qualified Code(s): M17.11 - Unilateral primary osteoarthritis, right knee (2) BMI 70 and over, adult: Code(s): Z68.45 - Body mass index [BMI] 70 or greater, adult (3) Morbid obesity due to excess calories: Code(s): E66.01 - Morbid (severe) obesity due to excess calories Plan Mr. Odom is a 42-year-old male, who is Stateless speaking, presents in the office today for a follow up of bilateral knee pain. The patient had a cortisone injection in the right knee on 02/13/2023. He claims the last injection gave him no relief. He reports his pain has increased since being seen in the office last. We will petition the insurance for approval to more forward with Gel injections. Follow up will be after approval from the insurance is obtained, or sooner if needed. Patient Instructions: Scribed for Janina Monroy PA-C by Sol Mack medical director/head team physician, on 04/24/2023 at 12:52 pm, EST. Coding Level of Care Code Est Pt Level 3 (70080) Diagnoses Osteoarthritis of right knee, unspecified osteoarthritis type M17.11 Osteoarthritis type: unspecified BMI 70 and over, adult Z68.45 Morbid obesity due to excess calories E66.01
[2023-04-24 12:47] VITALS: BMI 69.0
== END 2023-04-24 13:05 | disposition home or self-care (01) ==
PROVIDERS: PCP Nurse Practitioner Family; Visit Provider Physician Assistant
DX: M17.11 Unilateral primary osteoarthritis, right knee (principal)
CPT/HCPCS: 99213

== ENCOUNTER 2023-05-08 11:27 | Outpatient (AMB) | payer OTHER, SELFPAY ==
--- NOTE | 2023-05-08 11:34 | MHC.AMNUTRGE ---
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 this week worked 55 hours in 5 days straight . 5;30 coffee ?6am - Premier shake - powder 2 scoop with 8oz 2% milk ?9am - shake - premade premier 11 am - Pure protein bar ?1pm - meal 4pm - bar 7pm- shake powder 2 scoops 2% milk SWL online classes: completed , scored poorly and took quizzes 80 times in total Exercise: 20 minutes on days off Previous weight loss methods attempted tried to pursue bariatric surgery at age 20 400# in [place] but no insurance. Second attempt in [place] and lost insurance ws dread 2007 and was 450# Dietary counseling reduction Diagnosis Nutrition problem #1 overweight/obesity As related to (etiology) #1 excess energy intake and physical inactivity As evidenced by (sign/symptom) #1 high BMI Monitoring/Goals Nutrition problem monitoring total energy intake, level of knowledge/skill, total PRO intake, total CHO intake and weight Outcome progress progressing Learning/Education Readiness to learn good Stages of change action Educational materials provided Yes Most Recent Diabetes Results: No Data to Display PFSH Surgical History Hx of carpal tunnel repair Family History Mother No problems noted. Father No problems noted. 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 pt demonstrates understanding. Patient is cleared from a nutrition standpoint for bariatric surgery. Educational requirements have been completed. Reviewed vitamin supplementation and commitment to protein shake for several months post surgery. Encouraged communication with office as needed Coding Level of Care Code Nutr Indiv Subseq (69165) Diagnoses Morbid obesity due to excess calories E66.01 Time Spent (min) 30
[2023-05-08 11:52] VITALS: BMI 67.7
== END 2023-05-08 12:00 | disposition home or self-care (01) ==
PROVIDERS: Visit Provider Dietitian, Registered
DX: E66.01 Morbid (severe) obesity due to excess calories (principal)

== ENCOUNTER → 2023-05-08 11:27 | Outpatient (BNVA) | payer OTHER, SELFPAY | PROVIDERS: Visit Provider Dietitian, Registered | DX: E66.01 Morbid (severe) obesity due to excess calories (principal); Z68.44 Body mass index [BMI] 60.0-69.9, adult; Z71.3 Dietary counseling and surveillance | CPT/HCPCS: 97803 ==

== ENCOUNTER 2023-05-22 09:51 | Outpatient (AMB) | payer OTHER, SELFPAY ==
--- NOTE | 2023-05-22 09:57 | A.OFFVIS_ITS ---
Intake VS Expanded 05/22/23 10:06 BP 160/79 H Blood Pressure Location Rt brachial Blood Pressure Position Sitting Pulse 80 Pulse Source Pulse Oximeter Temp 97.7 F Height 5 ft 10 in Weight 476 lb 12.8 oz BMI 68.4 Body Fat % 54.1 Body Fat Mass 258.0 Fat Free Mass 218.6 Visceral Fat Rating 50.0 Body Water % 36.7 Body Water Mass 175.0 Muscle Mass/Score 208.2 Basal Metabolic Rate/Score 3,354 Intake Visit Reasons: (OV) F/U SWL Allergies No Known Allergies Allergy (Verified 04/24/23 12:47) Medication List - Last Reconciled 05/22/23 by ALEENA Kowalski-Praveen diclofenac sodium 75 mg PO BID PRN 30 days ibuprofen 600 mg PO Q8H PRN inulin (Fiber Gummies) 2 grams PO BID HPI HPI Comments History of Present Illness Details 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 Stopped sammie l plan for 2 weeks when under a lot of stress, now res tarted yesterday. meal plan: coffee with 2% milk no sw eetener 8am - zenaida e 10:30 - bar 1pm - meal - cauliflow er rice and salad, protein - not sammie sured 4pm - bar o r yogurt sometimes too tired for las t shake. Exercise - PE videos 2 d/ week. Works 5d/wk for 55 hours/week. Plans to start gy m if injection suc cesful. Pre op work up completed as follows: [facility] cl asses -? 02/24 ap pts - 02/20 ?- not y et ?- 04/03, follow up 04/23, [place] RD appts - follow up on 02/27,enjoys kimmy recipe books, f ollow up on 04/03, 05/08 H pylori - n egative Labs-vit d defic CXR and ECG - both normal ULS - fatty liver UGI - normal study SS - 03/04, Severe OS A , needs in lab t itration study for severe ANDREIA. ? sachin eduled for 04/24, c ancelled due to no insurance - Saw Ortho - will have R knee injection next week. [facility] Surgical History Hx of carpal tunnel repair Family History Mother No problems noted. Father No problems noted. 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 He has not heard back about this. We are calling his insurance today to find our what they need. Still has very high BMI and not getting enough protein. I told him he needs 2 shakes, 2 bars and 1 meal every day for better wegiht loss. He also needs to start regualr exericse program - but very difficult for him with his knee pain and work schedule. Hopes to join gym if cortsone injection successful next week - He will contact me with his results and will start with tradmill, recumbent bike an pool exercises if possible. Next appt office 3 weeks. Will discuss follow up with Ingrid with her. Patient is morbidly obese and is not considered stable at this time. I spent 30 minutes in total with patient reviewing/updating records, examining the patient and counseling the patient on weight management as detailed above. Coding Level of Care Code Est Pt Level 4 (18560) Diagnoses Morbid obesity due to excess calories E66.01 Sleep apnea G47.30
[2023-05-22 10:06] VITALS: BP 160/79; PULSE 80; TEMP 36.5; BMI 68.4
== END 2023-05-22 10:37 | disposition home or self-care (01) ==
PROVIDERS: PCP Nurse Practitioner Family; Visit Provider Physician Assistant
DX: E66.01 Morbid (severe) obesity due to excess calories (principal); G47.30 Sleep apnea, unspecified
CPT/HCPCS: 99214

== ENCOUNTER → 2023-05-22 09:51 | Outpatient (BNVA) | payer OTHER, SELFPAY | PROVIDERS: PCP Nurse Practitioner Family; Visit Provider Physician Assistant | DX: G47.30 Sleep apnea, unspecified (principal); Z68.45 Body mass index [BMI] 70 or greater, adult ==

== ENCOUNTER 2023-05-28 14:00 | Outpatient (AMB) | payer OTHER, SELFPAY ==
--- NOTE | 2023-05-28 14:13 | A.OFFWM_ITS ---
Intake Intake Visit Reasons: VIDEO BH F/U Allergies No Known Allergies Allergy (Verified 04/24/23 12:47) PFSH Surgical History Hx of carpal tunnel repair Family History Mother No problems noted. Father No problems noted. 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 Today we processed patient's sources of stress, PHQ-9 was administered again, and BEs scores were reviewed. PT reports he has been stressed and fall off the meal plan. Clinician provided support with stress management and methods to remain consistent and focus in the present. Behavior activation plan provided to plan for meals and exercise routine. Presenting Concerns Referral Source P Provider. Reason for referral Completion of behavioral health assessment as part of process for weight-loss surgery. Precipitating Event Morbid obesity, increased back/knee issues. Living Situation Current Living Situation Rent At risk of losing current housing? No Satisfied with current living situation? Yes Comments Ptlives alone. Food/Weight/Diet Expectations of change Pt is unsure about what he wants as he has never been skinny, but he wants to be more active, able to play sports and live longer for his kid. History/Relationship with food Reported a hx of eating more when depressed. Was in a jail from [id number] and was eating out a lot. . Example of meals before starting program Breakfast: omelets with toast and juice. Lunch: Pasta or rice with beans/meat Dinner: Home made style food or fast food/take out. Night snacks when didn't have to work on the next day. History/Relationship with weight Been obese since childhood. Lowest weight in last 10 years - 330Lbs Highest almost 530Lbs. Binge Eating Do you frequently eat large amounts of food in short periods of time, not feeling physically hungry? No Do you feel out of control when you eat a large amount of food in a short period of time? No Do you eat large amounts of food rapidly and typically alone? No Night Eating Do you wake up at least once during the night to eat? No If you wake up in the night, do you find that it is necessary to eat something in order to fall back asleep? No Do you have little or no appetite in the morning and feel very hungry in the evening, often overeating between dinner and when you go to bed? No Social History Family history and relationship 2 years ago. Father . Mother and brother in [place]. 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 currently WNL Social support Mother. co-workers. Community support None. Adventism/Spirituality Grew up as pentecostalism but he doesn't practice. At times attends [employer]. Cultural/Ethnic information Beninese. Moved to the 3 years ago. English-speaking only. Legal Involvement and History Current or historical involvement with the legal system? None. Education Highest grade completed 12th grade. Preferred learning style Auditory, Verbal, Written, Learn by doing and Visual Currently enrolled in educational program? No Interested in further educational program? No Educational Interests/Skills Crafting. 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 No Meaningful activities [employer] Financial Situation Describe current financial situation Comfortable and Occasional struggle Financial assistance? None Service Service? No Mental Health and Addiction Treatment Current/Past substance abuse? No Comments Occasional use of cannabis for pain. Current/Past addictive behavior concerns? No Psychiatric history Never been in counseling, hospitalized for mental health and/or in crisis. Denied Any past/current concern with SI/SA, self/other-harm. Medical and Physical Health Summary Additional Medical History not covered in history None reported Sexual History concerns None reported Physical exam in the last year? Yes Pain Screening Current pain? Yes (Knee and back.) Pain in the last few months? Yes Medications Is the patient compliant with medications? Yes Does the patient have Duggan Guardian in place? Not applicable Does the patient use complimentary health approaches? No Trauma/Abuse History History of trauma? Yes (When became homeless in 2020.) Questionnaires PHQ-9 Over the last 2 weeks, how often have you been bothered by any of the following problems? 1. Little interest or pleasure in doing things: several days 2. Feeling down, depressed, or hopeless: several days 3. Trouble falling or staying asleep, or sleeping too much: several days 4. Feeling tired or having little energy: not at all 5. Poor appetite or overeating: not at all 6. Feeling bad about yourself - or that you are a failure or have let yourself or your family down: several days 7. Trouble concentrating on things, such as reading the newspaper or watching television: several days 8. Moving or speaking so slowly that other people could have noticed. Or the opposite - being so fidgety or restless that you have been moving around a lot more than usual: not at all 9. Thoughts that you would be better off or of hurting yourself in some way: not at all Total score: 5 Source: Developed by Drs. Nik Silvestre, Tia Mariee, Tavares Elliott and colleagues, with an educational anthony from [employer]. Binge Eating Scale Group 1 A. I don't feel self-conscious about my wt. or body size when I'm with others. B. I feel concerned about how I look to others, but it normally does not make me fell disappointed with myself C. I do get self-conscious about my appearance and wt. which makes me feel disappointed in myself. D. I feel very self-conscious about my wt. and frequently I feel intense shame and disgust for myself. I try to avoid social contacts because of my self- consciousness. Response Group 1: C Group 2 A. I don't have any difficulty eating slowly in the proper manner. B. Although I seem to gobble down foods, I don't end up feeling stuffed because of eating to much. C. At times, I tend to eat quickly and then, I feel uncomfortably full afterwards. D. I have the habit of bolting down my food, without really chewing it. When this happens I usually feel uncomfortably stuffed because I've eaten to much. Response Group 2: A Group 3 A. I feel capable to control my eating urges when I want to. B. I feel like I have failed to control my eating more than the average person. C. I feel utterly helpless when it comes to feeling in control of my eating urges. D. Because I feel so helpless about controlling my eating I have become very desperate about trying to get control. Response Group 3: A Group 4 A. I don't have the habit of eating when I'm bored. B. I sometimes eat when I'm bored, but often I'm able to get busy and get my mind off food. C. I have a regular habit of eating when I'm bored, but occasionally, I can use some other activity to get my mind off eating. D. I have a strong habit of eating when I'm bored. Nothing seems to help me breath the habit. Response Group 4: A Group 5 A. I'm usually physically hungry when I eat something. B. Occasionally, I eat something on impulse even though I really am not hungry. C. I have the regular habit of eating foods, that I might not really enjoy, to satisfy a hungry feeling even though physically, I don't need the food. D. Although I'm not physically hungry, I get a hungry feeling in my mouth that only seems to be satisfied when I eat a food, like sandwich, that fills my mouth. Sometimes, when I eat the food to satisfy my mouth hunger, I then spit the food out so I won't gain weight. Response Group 5: A Group 6 A. I don't feel any guilt or self-hate after I overeat. B. After I overeat, occasionally I feel guilt or self-hate. C. Almost all the time I experience strong guilt or self-hate after I overeat. Response Group 6: C Group 7 A. I don't lose total control of my eating when dieting even after periods when I overeat. B. Sometimes when I eat a forbidden food on a diet, I feel like I blew it and eat even more. C. Frequently, I have the habit of saying to myself, I've blown it now, why not go all the way, when I overeat on a diet. When that happens I eat more. D. I have a regular habit of starting a strict diets for myself but I break the diets by going on an eating binge. My life seems to be either a feast or famine. Response Group 7: A Group 8 A. I rarely eat so much food that I feel uncomfortably stuffed afterwards. B. Usually about once a month, I each such a quantity of food, I end up feeling very stuffed. C. I have regular periods during the month when I eat large amounts of food, either at mealtime or at snacks. D. I eat so much food that I regularly feel quite uncomfortable after eating and sometimes a bit nauseous. Response Group 8: B Group 9 A. My level of calorie intake does not go up very high or go down very low on a regular basis. B. Sometimes after I overeat, I will try to reduce my caloric intake to almost nothing to compensate for the excess calories I've eaten. C. I have a regular habit of overeating during the night. It seems that my routine is not to be hungry in the morning but overeat in the evening. D. In my adult years, I have had week-long periods where I practically starve myself. This follows periods when I overeat. It seems I live a life of either feast or famine. Response Group 9: A Group 10 A. I usually am able to stop eating when I want to. I know when enough is enough. B. Every so often, I experience a compulsion to eat which I can't seem to control. C. Frequently, I experience strong urges to eat which I seem unable to control, but at other times I can control my eating urges. D. I feel incapable of controlling urges to eat. I have a fear of not being able to stop eating voluntarily. Response Group 10: A Group 11 A. I don't have any problem stopping eating when I feel full. B. I usually can stop eating when I feel full but occasionally overeat leaving me feeling uncomfortably stuffed. C. I have a problem stopping eating once I start and usually I feel uncomfortably stuffed after I eat a meal. D. Because I have a problem not being able to stop eating when I want, I sometimes have to induce vomiting to relieve my stuffed feeling. Response Group 11: A Group 12 A. I seem to eat just as much when I'm with others, Family social gatherings as when I'm by myself. B. Sometimes, when I'm with other persons, I don't eat as much as I want to eat because I'm self-conscious about my eating. C. Frequently, I eat only a small amount of food when others are present, because I'm very embarrassed about my eating. D. I feel so ashamed about overeating that I pick times to overeat when I know no one will see me. I feel like a closet eater. Response Group 12: A Group 13 A. I eat three meals a day with only an occasional between meal snack. B. I eat 3 meals a day, but I also normally snack between meals. C. When I am snacking heavily, I get in the habit of skipping regular meals. D. There are regular periods when I seem to be continually eating, with no planned meals. Response Group 13: A Group 14 A. I don't think much about trying to control unwanted eating urges. B. At least some of the time, I feel my thoughts are pre-occupied with trying to control my eating urges. C. I feel that frequently I spend much time thinking about how much I ate or about trying not to eat anymore. D. It seems to me that most of my waking hours are pre-occupied by thoughts about eating or not eating. I feel like I'm constantly struggling not to eat. Response Group 14: A Group 15 A. I don't think about food a great deal. B. I have strong craving for food but they last only for brief periods of time. C. I have days when I can't seem to think about anything else but food. D. Most of my days seem to be pre-occupied with thoughts about food. I feel like I live to eat. Response Group 15: A Group 16 A. I usually know whether or not I'm physically hungry. I take the right portion of food to satisfy me. B. Occasionally, I feel uncertain about knowing whether or not I'm physically hungry. A these times it's hard to know how much food I should take to satisfy me. C. Even though I might know how many calories I should eat, I don't have any idea what is a normal amount of food for me. Response Group 16: A Binge Eating Score: 5 Score less than 17 Minimal Risk Score between 18-26 Moderate Risk Score between 27-46 High Risk Assessment & Plan Assessment & Plan (1) Adjustment disorder: Code(s): F43.20 - Adjustment disorder, unspecified Plan: PT is cleared but will meet me again 2-3 times to get support with stress management and habit building. f/up in 4 weeks. Next reyes: 06/25/23 at 1:45pm, OV. Telehealth Telehealth Location of provider rendering services: other (Home office. [place], [place]) Location of patient: other (Hospital, parking lot. [place], [place]) Patient Identification confirmed using: Name, : Yes Telehealth method: video Patient verbally consented to treatment: Yes Patient verbally consented to billing insurance company: Yes Patient informed of any privacy concerns related to visit: No Minutes spent on Phone/Video with Pt.: 45 Coding Level of Care Code Established Pt Tele Psytx 45 mins ([id number]) Patient Type Established Diagnoses Adjustment disorder F43.20 Time Spent (min) 45
== END 2023-05-28 14:47 | disposition home or self-care (01) ==
PROVIDERS: Visit Provider Counselor Mental Health
DX: F43.20 Adjustment disorder, unspecified (principal)
CPT/HCPCS: 90834

== ENCOUNTER → 2023-05-28 14:00 | Outpatient (BNVA) | payer OTHER, SELFPAY | PROVIDERS: Visit Provider Counselor Mental Health ==

== ENCOUNTER 2023-05-29 10:46 | Outpatient (AMB) | payer OTHER, SELFPAY ==
--- NOTE | 2023-05-29 10:57 | A.OFFVIS_ITS ---
Intake Intake Visit Reasons: OV - Right Knee Durolane Gel Injection Allergies No Known Allergies Allergy (Verified 04/24/23 12:47) HPI OV - Right Knee Durolane Gel Injection HPI Details 42-year-old male, who is Bolivian speakin g, presents in the office today for a follow up of right knee pain. [facility] Surgical History Hx of carpal tunnel repair Family History Mother No problems noted. Father No problems noted. 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 No ecchymosis, erythema, or joint effusion. No tenderness to palpation to the medial or lateral joint lines. Full knee extension and flexion. Crepitus felt with ROM. NVI. Office Procedures Joint Injection/Drain Joint Injection/Drain Primary Site: right knee Injected: in the joint (Durolane) Approach Used: anterolateral Procedure: The patient tolerated the procedure well, but had some pain with the injection and there was some relief with the local anesthesia Coding 03375 - Large joint Procedure code (CPT) selection complete Results Reviewed Results Reviewed: 05/29/23 10:44 Hyaluronate Sodium, Stabilized [Durolane] 60 mg INTRAARTIC .STK-MED ONE Assessment & Plan Assessment & Plan (1) Degenerative arthritis of right knee: Code(s): M17.11 - Unilateral primary osteoarthritis, right knee Qualifiers: Osteoarthritis type: unspecified Qualified Code(s): M17.11 - Unilateral primary osteoarthritis, right knee (2) BMI 70 and over, adult: Code(s): Z68.45 - Body mass index [BMI] 70 or greater, adult (3) Morbid obesity due to excess calories: Code(s): E66.01 - Morbid (severe) obesity due to excess calories Plan Mr. Odom is a 42-year-old male, who is Bolivian speaking, presents in the office today for a follow up of right knee pain. The patient was offered a Durolane injection in the right knee. The patient was explained the risk, benefits, and alternatives to receiving this injection. After receiving consent for the injection, the patient had the procedure done while in office today. The patient tolerated the procedure well with no complications. The patient will be referred to physical therapy to work on ROM and strengthening of the right knee. Follow up will be PRN, or sooner if needed. Orders: Orders PT Evaluation and Treatment Today M19.072 - Primary osteoarthritis, left ankle and foot Patient Instructions: Scribed for Janina Monroy PA-C by Sol Mack medical record librarians teacher, on 05/29/2023 at 10:47 am, EST. Coding Level of Care Code Procedure Only Diagnoses Osteoarthritis of right knee, unspecified osteoarthritis type M17.11 Osteoarthritis type: unspecified BMI 70 and over, adult Z68.45 Morbid obesity due to excess calories E66.01 CPT Codes Coding - 18827 Large joint: 64599 - Large joint ([id number])
== END 2023-05-29 10:58 | disposition home or self-care (01) ==
PROVIDERS: Visit Provider Physician Assistant
DX: M17.11 Unilateral primary osteoarthritis, right knee (principal); Z68.45 Body mass index [BMI] 70 or greater, adult; E66.01 Morbid (severe) obesity due to excess calories
CPT/HCPCS: 20610

== ENCOUNTER → 2023-05-29 10:46 | Outpatient (BNVA) | payer OTHER, SELFPAY | PROVIDERS: Visit Provider Physician Assistant | DX: M17.11 Unilateral primary osteoarthritis, right knee (principal); E66.01 Morbid (severe) obesity due to excess calories; Z68.45 Body mass index [BMI] 70 or greater, adult | CPT/HCPCS: 20610; J7318 ==

== ENCOUNTER → 2023-06-19 19:30 | Outpatient (REF) | payer OTHER, SELFPAY | LOC: HO.SL 19:30 | PROVIDERS: Visit Provider Physician Assistant | DX: Z13.89 Encounter for screening for other disorder (principal) ==

== ENCOUNTER 2023-06-25 13:48 | Outpatient (AMB) | payer OTHER, SELFPAY ==
--- NOTE | 2023-06-25 14:03 | A.OFFWM_ITS ---
Intake Intake Visit Reasons: (OV) BH F/U Allergies No Known Allergies Allergy (Verified 06/26/23 09:03) PFSH Surgical History Hx of carpal tunnel repair Family History Mother No problems noted. Father No problems noted. 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 INTERVENTIONS: Processed sources of stress. Explored ways how he can adjust his routine and exercise as recommended by provider. Worked in habit building. Presenting Concerns Referral Source [facility] Provider. Reason for referral Completion of behavioral health assessment as part of process for weight-loss surgery. Precipitating Event Morbid obesity, increased back/knee issues. Living Situation Current Living Situation Rent At risk of losing current housing? No Satisfied with current living situation? Yes Comments Ptlives alone. Food/Weight/Diet Expectations of change Pt is unsure about what he wants as he has never been skinny, but he wants to be more active, able to play sports and live longer for his kid. History/Relationship with food Reported a hx of eating more when depressed. Was in a long-term from 7031-5289 and was eating out a lot. . Example of meals before starting program Breakfast: omelets with toast and juice. Lunch: Pasta or rice with beans/meat Dinner: Home made style food or fast food/take out. Night snacks when didn't have to work on the next day. History/Relationship with weight Been obese since childhood. Lowest weight in last 10 years - 330Lbs Highest almost 530Lbs. Binge Eating Do you frequently eat large amounts of food in short periods of time, not feeling physically hungry? No Do you feel out of control when you eat a large amount of food in a short period of time? No Do you eat large amounts of food rapidly and typically alone? No Night Eating Do you wake up at least once during the night to eat? No If you wake up in the night, do you find that it is necessary to eat something in order to fall back asleep? No Do you have little or no appetite in the morning and feel very hungry in the evening, often overeating between dinner and when you go to bed? No Social History Family history and relationship 2 years ago. Father . Mother and brother in [place]. 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 currently WNL Social support Mother. co-workers. Community support None. Scientology/Spirituality Grew up as yarsani but he doesn't practice. At times attends [employer]. Cultural/Ethnic information Polish. Moved to the 3 years ago. Sinhala-speaking only. Legal Involvement and History Current or historical involvement with the legal system? None. Education Highest grade completed 12th grade. Preferred learning style Auditory, Verbal, Written, Learn by doing and Visual Currently enrolled in educational program? No Interested in further educational program? No Educational Interests/Skills Crafting. 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 No Meaningful activities [employer] Financial Situation Describe current financial situation Comfortable and Occasional struggle Financial assistance? None Service Service? No Mental Health and Addiction Treatment Current/Past substance abuse? No Comments Occasional use of cannabis for pain. Current/Past addictive behavior concerns? No Psychiatric history Never been in counseling, hospitalized for mental health and/or in crisis. Denied Any past/current concern with SI/SA, self/other-harm. Medical and Physical Health Summary Additional Medical History not covered in history None reported Sexual History concerns None reported Physical exam in the last year? Yes Pain Screening Current pain? Yes (Knee and back.) Pain in the last few months? Yes Medications Is the patient compliant with medications? Yes Does the patient have Duggan Guardian in place? Not applicable Does the patient use complimentary health approaches? No Trauma/Abuse History History of trauma? Yes (When became homeless in 2020.) Assessment & Plan Assessment & Plan (1) Adjustment disorder: Code(s): F43.20 - Adjustment disorder, unspecified Plan: PT is cleared F/up in 4-6 weeks for support with stress management and habit building. Next reyes: 08/05/23 at 12:30 - Video. Coding Level of Care Code Established Pt Psytx >53 mins (94395) Patient Type Established Diagnoses Adjustment disorder F43.20 Time Spent (min) 60
== END 2023-07-15 15:04 | disposition home or self-care (01) ==
PROVIDERS: Visit Provider Counselor Mental Health
DX: F43.20 Adjustment disorder, unspecified (principal)
CPT/HCPCS: 90837

== ENCOUNTER → 2023-06-25 13:48 | Outpatient (BNVA) | payer OTHER, SELFPAY | PROVIDERS: Visit Provider Counselor Mental Health ==

== ENCOUNTER 2023-06-26 08:55 | Outpatient (AMB) | payer OTHER, SELFPAY ==
--- NOTE | 2023-06-26 08:57 | MHC.OFFVISWM ---
Intake VS Expanded 06/26/23 09:04 BP 162/87 H Blood Pressure Location Rt brachial Blood Pressure Position Sitting Pulse 74 Pulse Source Pulse Oximeter Temp 97.6 F Temperature Source Tympanic Pulse Oximetry 94 Oxygen Delivery Method Room Air Height 5 ft 10 in Weight 480 lb 6.4 oz BMI 68.9 Body Fat % 54.3 Body Fat Mass 260.8 Fat Free Mass 219.6 Visceral Fat Rating 50.0 Body Water % 36.6 Body Water Mass 175.8 Muscle Mass/Score 209.0 Basal Metabolic Rate/Score 3,373 Intake Visit Reasons: (OV) F/U SWL Allergies No Known Allergies Allergy (Verified 06/26/23 09:03) Medication List - Last Reconciled 06/26/23 by Ila Douglass PA-C CPAP (CPAP Machine/Device) As directed diclofenac sodium 75 mg PO BID PRN 30 days ibuprofen 600 mg PO Q8H PRN HPI HPI Comments History of Present Illness Details [facility]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 Meal plan - had stopped restarted this week. 5:30 am - coffee with 2% milk and sugar free syrup 8am - Premier RTD shake 10:30 - different ones, [employer] and [employer] bran for 17 grams and 160 calories 1pm - vegetables and protein - 8 ounces each 4pm - bar 7 pm - shake Exercise - Kaleb Fermin 30 minutes 2d/ week, works 11 hours days and is very tired when gets home. Pre op work up completed as follows: [facility] classes -? 02/24 appts - 02/20 ?- not yet ?- 04/03, follow up 04/23, cleared, [place] follow up 07/05 appts - follow up on 02/27,enjoys both recipe books, follow up on 04/03, cleared pylori - negative Labs-vit ddefic CXR and ECG - both normal ULS - fatty liver UGI - normal study SS - 03/04, Severe ANDREIA , needs in lab titration study for severe ANDREIA. ?Titraition study done 06/24/23. needs pressure of 14 cms. Saw Ortho - had R knee injection and referred to PT, no appt set up yet. Does not feel any improvement. PFSH Surgical History Hx of carpal tunnel repair Family History Mother No problems noted. Father No problems noted. 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 Will continue with present meal plan - add another shake if hungry. Must start regular exercise - although hard with his orthopedic conditions. Kaleb Fermin sitting exercise need to be a minimum of 5d/ week - can do 15 minutes bid NExt appt with me in 3 weeks. Patient is morbidly obese and is not considered stable at this time. I spent 30 minutes in total with patient reviewing/updating records, examining the patient and counseling the patient on weight management as detailed above. (2) Sleep apnea: Code(s): G47.30 - Sleep apnea, unspecified Plan: CPAP mask and machine ordered for him (3) Degenerative arthritis of right knee: Code(s): M17.11 - Unilateral primary osteoarthritis, right knee Qualifiers: Osteoarthritis type: unspecified Qualified Code(s): M17.11 - Unilateral primary osteoarthritis, right knee Plan: He will call PT for apptointments, and follow up with Ortho prn (4) Elevated BP without diagnosis of hypertension: Code(s): R03.0 - Elevated blood-pressure reading, without diagnosis of hypertension Plan: Call PCP with BP results for medications Medications: New CPAP (CPAP Machine/Device) As directed 1 ea 0RF Coding Level of Care Code Est Pt Level 4 (81534) Diagnoses Morbid obesity due to excess calories E66.01 Sleep apnea G47.30 Osteoarthritis of right knee, unspecified osteoarthritis type M17.11 Osteoarthritis type: unspecified Elevated BP without diagnosis of hypertension R03.0
[2023-06-26 09:04] VITALS: BP 162/87; PULSE 74; TEMP 36.4; O2SAT 94; BMI 68.9
== END 2023-06-26 09:36 | disposition home or self-care (01) ==
PROVIDERS: PCP Nurse Practitioner Family; Visit Provider Physician Assistant
DX: E66.01 Morbid (severe) obesity due to excess calories (principal); G47.30 Sleep apnea, unspecified; M17.11 Unilateral primary osteoarthritis, right knee; R03.0 Elevated blood-pressure reading, without diagnosis of hypertension
CPT/HCPCS: 99214

== ENCOUNTER → 2023-06-26 08:55 | Outpatient (BNVA) | payer OTHER, SELFPAY | PROVIDERS: PCP Nurse Practitioner Family; Visit Provider Physician Assistant | DX: G47.30 Sleep apnea, unspecified (principal); Z68.45 Body mass index [BMI] 70 or greater, adult ==

== ENCOUNTER 2023-08-05 12:42 | Outpatient (AMB) | payer OTHER, SELFPAY ==
--- NOTE | 2023-08-05 12:41 | MHC.WMTHER ---
Intake Intake Visit Reasons: VIDEO BH F/U Allergies shrimp Allergy (Mild, Uncoded 09/18/23 11:08) Stomach Upset PFSH Surgical History Hx of carpal tunnel repair Family History Mother No problems noted. Father No problems noted. 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 Client reports he's dealing with stressful events such as car repairs and financial issues. PT reports he did well emotionally during holidays and with eating. INTERVENTIONS -Today we worked in organization and planning for year goals. Goals: 1) exercise daily. Before work. 2)Family time. Travel 2 times to [place] to see his close relatives. 3) Loss required weight to have bariatric surgery. -Psychoeducation about behavioral activation plan as part of goal achieving and habit building. - Used cognitive reframing and challenging for distorted cognitions. RESPONSE AND PLAN: Client was active, open and engaged. He will continue meeting with me for support. Presenting Concerns Referral Source [facility] Provider. Reason for referral Completion of behavioral health assessment as part of process for weight-loss surgery. Precipitating Event Morbid obesity, increased back/knee issues. Living Situation Current Living Situation Rent Assessment & Plan Assessment & Plan (1) Adjustment disorder: Code(s): F43.20 - Adjustment disorder, unspecified Plan: PT is cleared F/up in 4-6 weeks for support with stress management and habit building. Next reyes: 09/02/23 - Video. Telehealth Telehealth Location of provider rendering services: other (Home office. [place], [place]) Location of patient: other (Work. [place], [place]) Patient Identification confirmed using: Name, : Yes Telehealth method: video Patient verbally consented to treatment: Yes Patient verbally consented to billing insurance company: Yes Patient informed of any privacy concerns related to visit: No Minutes spent on Phone/Video with Pt.: 45 Coding Level of Care Code Established Pt Tele Psytx 45 mins (59943) Patient Type Established Diagnoses Adjustment disorder F43.20 Time Spent (min) 45
== END 2023-08-05 13:15 | disposition home or self-care (01) ==
PROVIDERS: PCP Nurse Practitioner Family; Visit Provider Counselor Mental Health
DX: F43.20 Adjustment disorder, unspecified (principal)
CPT/HCPCS: 90834

== ENCOUNTER → 2023-08-05 12:42 | Outpatient (BNVA) | payer OTHER, SELFPAY | PROVIDERS: PCP Nurse Practitioner Family; Visit Provider Counselor Mental Health ==

== ENCOUNTER 2023-09-02 12:30 | Outpatient (AMB) | payer OTHER, SELFPAY ==
--- NOTE | 2023-09-02 13:00 | A.OFFWM_ITS ---
Intake Intake Visit Reasons: VIDEO BH F/U Allergies No Known Allergies Allergy (Verified 06/26/23 09:03) PFSH Surgical History Hx of carpal tunnel repair Family History Mother No problems noted. Father No problems noted. 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 Financial issues have been a major source of stress, and the patient has not been following their meal plan or exercising. INTERVENTION During our session, we discussed the overall functioning of the individual and the challenges they are facing. Today, we focused on building habits, promoting organization, and planning for the current life changes. We used cognitive- behavioral therapy (CBT) to develop flexible thinking and improve self-talk as a way to manage anxiety and worry. The therapist provided validation and normalization of feelings. We gently reflected and challenged his difficulty in seeking support and encouraged the use of jaxon-based coping skills. Response/Plan: The patient was engaged and responded well to treatment. A follow-up appointment is scheduled in a month for further support. Assessment & Plan Assessment & Plan (1) Adjustment disorder: Code(s): F43.20 - Adjustment disorder, unspecified Plan: PT would benefit from seeking external counseling for continued support. The provider has offered to facilitate referrals but he is uncertain about it. Follow-up will occur in approximately one month. Next reyes: 10/07/2023 @12:15pm Telehealth Telehealth Location of provider rendering services: other (Home office. [place], [place]) Location of patient: address on file Patient Identification confirmed using: Name, : Yes Telehealth method: video Patient verbally consented to treatment: Yes Patient verbally consented to billing insurance company: Yes Patient informed of any privacy concerns related to visit: No Minutes spent on Phone/Video with Pt.: 60 Coding Level of Care Code Established Pt Tele Psytx >53 mins (42448) Patient Type Established Diagnoses Adjustment disorder F43.20 Time Spent (min) 60
== END 2023-09-02 13:15 | disposition home or self-care (01) ==
LOC: HO.HBST 13:08
PROVIDERS: PCP Nurse Practitioner Family; Visit Provider Counselor Mental Health
DX: F43.20 Adjustment disorder, unspecified (principal)
CPT/HCPCS: 90837

== ENCOUNTER → 2023-09-02 12:30 | Outpatient (BNVA) | payer OTHER, SELFPAY | PROVIDERS: PCP Nurse Practitioner Family; Visit Provider Counselor Mental Health ==

== ENCOUNTER 2023-09-18 10:57 | Outpatient (AMB) | payer OTHER, SELFPAY ==
--- NOTE | 2023-09-18 11:01 | MHC.OFFVISWM ---
Intake VS Expanded 09/18/23 11:12 BP 144/80 H Blood Pressure Location Rt brachial Blood Pressure Position Sitting Pulse 75 Pulse Source Pulse Oximeter Temp 98.1 F Temperature Source Temporal Artery Scan Pulse Oximetry 95 Oxygen Delivery Method Room Air Height 5 ft 10 in Weight 480 lb 12.8 oz BMI 69.0 Body Fat % 49.2 Body Fat Mass 236.6 Fat Free Mass 244.0 Visceral Fat Rating 36.3 Body Water % 174.6 Body Water Mass 232.0 Muscle Mass/Score 3,727 Intake Visit Reasons: (OV) F/U SWL Allergies shrimp Allergy (Mild, Uncoded 09/18/23 11:08) Stomach Upset Medication List - Last Reconciled 09/18/23 by Ila Douglass PA-C CPAP (CPAP Machine/Device) As directed diclofenac sodium 75 mg PO BID PRN 30 days ibuprofen 600 mg PO Q8H PRN HPI HPI Comments History of Present Illness Details [facility] 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 meal plan: had stopped meal plan again a few months ago. Didn't have money to buy the shakes and bars. Restarted plan again this week. coffee - 2% milk no sweetener 8am - Premeir RTD shake 11 am- Equate bar - 17 grams 1pm- vegetables and protein - not measuring 4pm- another bar 7pm- Premier powder with 8 oz 2% milk Exercise - started this week x 2 this week. Kaleb Fermin 30 minute videos - shoulder hurts afterwards Saw Ortho - had R knee injection and referred to PT, no appt set up yet. Does not feel any improvement. Will have ortho followup next month. Pre op work up completed as follows: [facility] classes -? 02/24 appts - 02/20 ?- not yet ?- 04/03, follow up 04/23, cleared, [place] follow up 07/05 appts - follow up on 02/27,enjoys both recipe books, follow up on 04/03, cleared pylori - negative Labs-vit ddefic CXR and ECG - both normal ULS - fatty liver UGI - normal study SS - 03/04, Severe ANDREIA ,?Titraition study done 06/24/23. needs pressure of 14 cms. Now using CPAP PFSH Surgical History Hx of carpal tunnel repair Family History Mother No problems noted. Father No problems noted. 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 Exercise - continue PE 30 minute videos daily. Still needs to purchase [employer] 500 lb electronic smart scale. Will send me his weight electronically this week. Rosangela will set up appt for him with Dr Garay for last week in September. Patient is morbidly obese and is not considered stable at this time. I spent 30 minutes in total with patient reviewing/updating records, examining the patient and counseling the patient on weight management as detailed above. Coding Level of Care Code Est Pt Level 4 (27779) Diagnoses Morbid obesity due to excess calories E66.01
[2023-09-18 11:12] VITALS: BP 144/80; PULSE 75; TEMP 36.7; O2SAT 95; BMI 69.0
== END 2023-09-18 11:36 | disposition home or self-care (01) ==
PROVIDERS: PCP Nurse Practitioner Family; Referring Provider Nurse Practitioner Family; Visit Provider Physician Assistant
DX: E66.01 Morbid (severe) obesity due to excess calories (principal)
CPT/HCPCS: 99214

== ENCOUNTER → 2023-09-18 10:57 | Outpatient (BNVA) | payer OTHER, SELFPAY | PROVIDERS: PCP Nurse Practitioner Family; Visit Provider Physician Assistant | DX: G47.30 Sleep apnea, unspecified (principal); Z68.45 Body mass index [BMI] 70 or greater, adult ==

== ENCOUNTER 2023-10-02 14:10 | Outpatient (RCR) | payer OTHER, SELFPAY ==
--- NOTE | 2023-10-02 14:57 | MHC.PT.EP ---
[facility] [place] Office [place] Office [place] Office [address] [phone] F: [phone] F: [phone] F: [phone] F: [phone] Physical Therapy Plan of Care Date of Evaluation: 10/02/23 Date of Surgery: Diagnosis: primary OA L ankle and foot Assessment: 42 y/o male referred to PT with L foot and ankle pain. Reports pain and difficulty with walking, standing and stairs (goes one at a time but he thinks this is due to R knee pain and not L ankle pain). Examination shows decreased L ankle ROM, decreased L ankle strength, pain, edema, and impaired gait pattern. Recommend PT 2x/weeks for 6 weeks to address impairments, implement HEP, and optimize functional mobility. He can only come 1x/week. Frequency and Duration: The patient will be seen 1x/week for 6 weeks Short Term Goals: 3 weeks I with HEP Improve L ankle inversion to 15* Senior Living Goals: 6 weeks I with HEP and self management of sx Pt will be able to ambulate > 15 minutes with pain < 3/10 Pt will demonstrate improved ankle ROM to faciliate stairs Treatment Plan: Modalities to reduce pain, spasms and effusion. Manual therapy to restore motion and function. Therapeutic exercise to improve strength and flexibility. Neuromuscular re-education for posture and balance. Therapeutic activities to return to functional activities of daily living. Electronically signed by: Radha Rosario PT Please sign and return to therapist. Thank you for your referral.
--- NOTE | 2023-11-24 13:39 | MHC.PT.DC ---
[facility] [place] Office [place] Office [place] Office [address] Jermaine Schroeder [address] [phone] F: [phone] F: [phone] F: [phone] F: [phone] Physical Therapy Discharge Report Diagnosis: primary OA L ankle and foot Date of Surgery: Date of Evaluation: 10/02/23 Date of Discharge: 11/24/23 Treatments to Date: 1 Cancellations to Date: 4 No Shows to Date: 0 Discharge Status: Patient Elected to Stop Discharge Summary: Pt called to cancel all visits following initial evaluation as work schedule had changed and has not made any f/u appointments. D/c at this time Electronically signed by: Radha Rosario PT Please sign and return to therapist. Thank you for your referral.
== END 2023-11-24 13:40 | disposition home or self-care (01) ==
LOC: HO.PTCHIC 14:10
PROVIDERS: PCP Nurse Practitioner Family; Visit Provider Physician Assistant
DX: M19.072 Primary osteoarthritis, left ankle and foot (principal)
CPT/HCPCS: 97110; 97161

== ENCOUNTER 2023-10-23 08:03 | Outpatient (AMB) | payer OTHER, SELFPAY ==
--- NOTE | 2023-10-23 12:36 | A.OFFVIS_ITS ---
Intake VS Expanded 10/23/23 12:55 Height 5 ft 10 in Weight 475 lb BMI 68.1 Intake Visit Reasons: TV Consult/Transfer Ila *RECREATION INSTRUCTOR* Allergies shrimp Allergy (Mild, Uncoded 10/23/23 12:36) Stomach Upset Medication List - Last Reconciled 10/23/23 by Joey De Luna MD CPAP (CPAP Machine/Device) As directed HPI TV Consult/Transfer Ila *RECREATION INSTRUCTOR* HPI Details Start time: 12.23pm, End time: 12.58pm ?I spent 30 minutes speaking with the patient on the phone plus an additional 5 minutes reviewing and updating records for a total of 35 minutes HPI Comments History of Present Illness Details Overall weight loss: 51.8lbs, or 9.83% TBWL Is doing premade Premier protein shake, 2 Equate protein bars, lunch (12 forks of protein and 12 forks of salad), one powdered Premier shake (2 scoops in susanna ond milk) Exercise: none due to knee pain PFSH Medical History (Updated 10/23/23 @ 12:39 by Joey De Luna MD) Obstructive sleep apnea on CPAP Surgical History Hx of carpal tunnel repair Family History Mother No problems noted. Father No problems noted. 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 Plan for lap sleeve gastrectomy. If diaphragmatic or ventral hernias are present at time of surgery, these will be repaired laparoscopically as well. Risks and complications were discussed in detail including possible conversion to an open procedure, anastomotic leak, bleeding requiring transfusion, small bowel obstruction, , DVT and pulmonary embolism, cardiac, or pulmonary complications, as director long term care complications such as anastomotic ulcer, insufficient weight loss and vitamin deficiencies. I emphasized the importance of close follow-up, adherence to instructions and good communication. 2. Continue same nutritional plan of premade Premier protein shake, 2 Equate protein bars, lunch (12 forks of protein and 12 forks of salad), one powdered Premier shake (2 scoops in almond milk) 3. Consider purchasing a stationary bike at home with an appropriate weight limit 4. Send me weight measurements weekly Telehealth Telehealth Location of provider rendering services: practice address Location of patient: address on file Patient Identification confirmed using: Name, : Yes Telehealth method: voice only Patient verbally consented to treatment: Yes Patient verbally consented to billing insurance company: Yes Patient informed of any privacy concerns related to visit: Yes Minutes spent on Phone/Video with Pt.: 35 Coding Level of Care Code Tele Est Pt Level 4 (03580) Diagnoses Morbid obesity due to excess calories E66.01 Time Spent (min) 35
[2023-10-23 12:55] VITALS: BMI 68.1
== END 2023-10-23 12:58 | disposition home or self-care (01) ==
LOC: HO.HBS 08:03
PROVIDERS: PCP Nurse Practitioner Family; Visit Provider Surgery
DX: E66.01 Morbid (severe) obesity due to excess calories (principal)
CPT/HCPCS: 99214

== ENCOUNTER → 2023-10-23 08:03 | Outpatient (BNVA) | payer OTHER, SELFPAY | PROVIDERS: PCP Nurse Practitioner Family; Visit Provider Surgery ==

== ENCOUNTER 2023-10-23 13:45 | Outpatient (AMB) | payer OTHER, SELFPAY ==
[2023-10-23 13:52] VITALS: BMI 68.1
--- NOTE | 2023-10-23 13:52 | MHC.OFFVIS ---
Intake Vital Signs 10/23/23 13:52 Height 5 ft 10 in Weight 475 lb BMI 68.1 Intake Visit Reasons: OV - right knee OA, last gel injection 05/29/23 Intake Note: Darryl is a 43 year old male who presents today for a follow up for his right knee OA, last durolane gel injection 05/29/23. Patient reports his last injection gave, he feel worst, more pain and no improve, only patch relief pain but for only short time of period.? Information Interpreted: non-clinical & clinical Accompanied by: Self / Same As Patient Allergies shrimp Allergy (Mild, Uncoded 10/23/23 13:56) Stomach Upset HPI OV - right knee OA, last gel injection 05/29/23 HPI Details 43-year-old male who presents in the office today for a follow up of right knee pain. I last saw the patient in the office on 05/29/2023. At that time the patient received a Durolane injection in the right knee. Patient reports last injection make him feel worse with increased pain. He states he only had minor relief for a short period of time. [facility] Medical History Obstructive sleep apnea on CPAP Surgical History Hx of carpal tunnel repair Family History Mother No problems noted. Father No problems noted. 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 No ecchymosis, erythema, or joint effusion. Difficult to assess due to body habitus. ROM is 0-100 degrees. No tenderness to palpation along the medial or lateral joint lines. Unable to assess Arun's or anterior drawer. NVI. Assessment & Plan Assessment & Plan (1) Degenerative arthritis of right knee: Code(s): M17.11 - Unilateral primary osteoarthritis, right knee Qualifiers: Osteoarthritis type: unspecified Qualified Code(s): M17.11 - Unilateral primary osteoarthritis, right knee (2) Morbid obesity due to excess calories: Code(s): E66.01 - Morbid (severe) obesity due to excess calories Plan: BMI as of 10/23/2023 is 68.1. Weight as of 10/23/2023 is 475 lbs. Plan Mr. Odom is a 43-year-old male who presents in the office today for a follow up of right knee pain. I last saw the patient in the office on 05/29/2023. At that time the patient received a Durolane injection in the right knee. Patient reports last injection make him feel worse with increased pain. He states he only had minor relief for a short period of time. Patient has requested a referral for further evaluation and treatment with Pain Management. He is interested in discussing the role of chronic Tramadol treatment. I explained to the patient that as an Orthopedic provider I do not treat patients with narcotics for chronic pain senior care. He understands this. However, I will send a prescription for Dicolfenac 75 mg PO BID to the pharmacy until he can be seen by Pain Management. Follow up with orthopedics will be PRN, or sooner if needed. Orders: Referrals Pain Management Referral M17.11 - Unilateral primary osteoarthritis, right knee Medications: New diclofenac sodium 75 mg PO BID PRN 60 tabs 0RF pain Patient Instructions: Scribed by Sol Mack medical oncology physician, for Janina Monroy PA-C on 10/23/2023 at 1:49 pm, EST. Coding Level of Care Code Est Pt Level 3 (82172) Diagnoses Osteoarthritis of right knee, unspecified osteoarthritis type M17.11 Osteoarthritis type: unspecified Morbid obesity due to excess calories E66.01
== END 2023-10-23 15:46 | disposition home or self-care (01) ==
PROVIDERS: PCP Nurse Practitioner Family; Visit Provider Physician Assistant
DX: M17.11 Unilateral primary osteoarthritis, right knee (principal); E66.01 Morbid (severe) obesity due to excess calories
CPT/HCPCS: 99214

== ENCOUNTER 2023-11-27 12:33 | Outpatient (AMB) | payer OTHER, SELFPAY ==
[2023-11-27 12:52] VITALS: BMI 65.0
--- NOTE | 2023-11-27 12:52 | A.OFFVIS_ITS ---
VS Expanded 11/27/23 12:52 Height 5 ft 10 in Weight 453 lb BMI 65.0 Body Fat % 52.3 Body Fat Mass 236.8 Fat Free Mass 216 Visceral Fat Rating 46 Body Water % 38.2 Body Water Mass 172.8 Basal Metabolic Rate/Score 3,275 Intake Visit Reasons: OV Follow Up SWL Allergies shrimp Allergy (Mild, Uncoded 10/23/23 13:56) Stomach Upset HPI Comments Details: Overall weight loss: 73.8lbs or 14% TBWL PFSH Medical History Obstructive sleep apnea on CPAP Surgical History Hx of carpal tunnel repair Family History Mother No problems noted. Father No problems noted. 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 Cognitive needs: No Hearing needs: No Vision needs: Yes (Glasses) Physical Exam GI Inspection: Yes Abdominal panniculus present and Yes obesity Palpation (GI): Firmness to palpation present (GI) and Hernia present (large incarcerated umbilical hernia) Extrem Right lower extremity: normal to inspection Left lower extremity: normal to inspection Assessment & Plan Assessment & Plan (1) Morbid obesity due to excess calories: Code(s): E66.01 - Morbid (severe) obesity due to excess calories Category: Medical Plan: He is doing very well but as we discussed he still remains severely obese and this carries significantly higher risks. I did recommend to continue MWL prior to surgery and he is in agreement to do so. He will continue to send me weight measurements weekly
== END 2023-11-27 12:56 | disposition home or self-care (01) ==
LOC: HO.HBS 12:33
PROVIDERS: PCP Internal Medicine; Visit Provider Surgery
DX: E66.01 Morbid (severe) obesity due to excess calories (principal)
CPT/HCPCS: 99213

== ENCOUNTER → 2023-11-27 12:33 | Outpatient (BNVA) | payer OTHER, SELFPAY | PROVIDERS: PCP Internal Medicine; Visit Provider Surgery ==

== ENCOUNTER 2023-12-02 12:00 | Outpatient (AMB) | payer OTHER, SELFPAY ==
--- NOTE | 2023-12-02 12:10 | A.OFFWM_ITS ---
Intake Intake Visit Reasons: VIDEO BH F/U Allergies shrimp Allergy (Mild, Uncoded 10/23/23 13:56) Stomach Upset PFSH Medical History Obstructive sleep apnea on CPAP Surgical History Hx of carpal tunnel repair Family History Mother No problems noted. Father No problems noted. 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 The patient reported that they had started seeing Dr. Sesay following Ila's departure from the agency and expressed comfort with the new provider. However, the patient has been experiencing significant stress and frustration due to inability to exercise caused by knee pain and the necessity to lose more weight for bariatric surgery. On a positive note, the patient reported that their life challenges have been resolved, and they are now stable financially and in terms of transportation, which were previous areas of concern. Interventions involved cognitive processing and supportive therapy, including the use of cognitive challenging and reframing of negative thoughts and resistances identified for the necessary behavioral changes around physical activity. The focus was on addressing thinking processes and ways to adopt a more flexible and positive mindset within realistic parameters. Additionally, a cognitive restructuring exercise was completed to generate alternative thoughts when feeling frustrated. The patient was active and engaged and expressed continued interest in attending behavioral health sessions as part of the support they require for their weight- loss journey, aiming to remain committed and focused on their goals. The next appointment is scheduled for 1 month from now. Assessment & Plan Assessment & Plan (1) Adjustment disorder: Code(s): F43.20 - Adjustment disorder, unspecified Plan Follow up n 1 month. Next reyes: 12/30/23 at 12. Via telehealth. Telehealth Telehealth Telehealth Platform: [employer] Location of provider rendering services: other ([place], [place]) Location of patient: other ([facility]) Patient Identification confirmed using: Name, : Yes Telehealth method: video Patient verbally consented to treatment: Yes Patient verbally consented to billing insurance company: Yes Patient informed of any privacy concerns related to visit: No Minutes spent on Phone/Video with Pt.: 60 Coding Level of Care Code Established Pt Tele Psytx >53 mins (13026) Patient Type Established Diagnoses Adjustment disorder F43.20 Time Spent (min) 60
== END 2023-12-02 14:17 | disposition home or self-care (01) ==
LOC: HO.HBST 12:57
PROVIDERS: PCP Internal Medicine; Visit Provider Counselor Mental Health
DX: F43.20 Adjustment disorder, unspecified (principal)
CPT/HCPCS: 90837

== ENCOUNTER → 2023-12-02 12:00 | Outpatient (BNVA) | payer OTHER, SELFPAY | PROVIDERS: PCP Internal Medicine; Visit Provider Counselor Mental Health ==

== ENCOUNTER → 2023-12-09 11:54 | Day surgery (SDC) | payer OTHER, SELFPAY ==
--- NOTE | 2023-12-07 15:32 | P.CONAN_ITS ---
HPI - Anesthesia Eval Consult details Narrative: 43yo M for Upper Endoscopy PMFSH Active Problems Active Problems: All Active Problems Obstructive sleep apnea on CPAP (Acute) Elevated BP without diagnosis of hypertension (Acute) Osteoarthritis of ankle, left (Acute) Sleep apnea (Acute) Degenerative arthritis of right knee (Acute) Pre-op evaluation (Acute) Right knee pain (Acute) Umbilical hernia (Acute) Fatigue (Acute) Snoring (Acute) Non-restorative sleep (Acute) BMI 70 and over, adult (Acute) Morbid obesity due to excess calories (Acute) Past Medical History Medical History Obstructive sleep apnea on CPAP Family History Family History Mother No problems noted. Father No problems noted. 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
[2023-12-09 11:56] VITALS: BMI 65.4
[2023-12-09 12:23] VITALS: BP 143/87; PULSE 78; RESP 16; TEMP 36.6; O2SAT 96
[2023-12-09] MEDS: Lactated Ringers 1,000 ML 80 ML IVCONT (12:25)
--- NOTE | 2023-12-09 12:58 | HO.ANESPROP2 ---
[facility] Active Problems Active Problems: All Active Problems Obstructive sleep apnea on CPAP (Acute) Elevated BP without diagnosis of hypertension (Acute) Osteoarthritis of ankle, left (Acute) Sleep apnea (Acute) Degenerative arthritis of right knee (Acute) Pre-op evaluation (Acute) Right knee pain (Acute) Umbilical hernia (Acute) Fatigue (Acute) Snoring (Acute) Non-restorative sleep (Acute) BMI 70 and over, adult (Acute) Morbid obesity due to excess calories (Acute) Past Medical History Medical History Obstructive sleep apnea on CPAP Functional capacity: independent ambulation Family History Family History Mother No problems noted. Father No problems noted. Family history of problems with anesthesia: No Surgical History Surgical History Hx of carpal tunnel repair History of Problems with Anesthesia: No Social History Social History Housing: Apartment Alcohol intake: current Alcohol intake frequency: holidays/special occasions only Patient Tobacco Use Status: Former Tobacco user Quit Date: December 2022 Cigarettes Per Day: 9 e-Cigarette/Vaping Use: Never Used Second Hand Smoke Exposure: Yes Use of substances other than those prescribed or required for medical reasons: No Are you DNR?: No Advance Directives: No Advance Directives Information Provided: Yes service: No Current occupational status: employed 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 Cognitive needs: No Hearing needs: No Vision needs: Yes (Glasses) Meds Allergies Allergy/AdvReac Type Severity Reaction Status Date / Time shrimp Allergy Mild Stomach Uncoded 10/23/23 13:56 Upset Active Medications: Current Medications Lactated Ringer's (Lr) 1,000 mls @ 80 mls/hr IVCONT .[id number] FABIOLA Last Admin: 12/09/23 12:25 Dose: 80 mls/hr Lactated Ringer's (Lr) 1,000 mls @ 100 mls/hr IVCONT .Q10H FABIOLA Exam Height,Weight and Vital Signs: Height 5 ft 10 in Weight 206.838 kg Last Vital Signs Temp 97.9 F 12/09/23 12:23 Pulse 78 12/09/23 12:23 Resp 16 12/09/23 12:23 BP 143/87 H 12/09/23 12:23 Pulse Ox 96 12/09/23 12:23 O2 Del Method Room Air 12/09/23 12:23 Airway Mallampati Class: IV TM Dist: >3cm Neck ROM: Full Heart: RRR Lungs: CTA Assessment and Plan Assessment Anesthesia Assessment: Anesthesia Plan Discussed Final Anesthetic Review Family History of Problems with Anesthesia: No History of Problems with Anesthesia: No NPO: Yes ASA Class: III Final Preanesthetic Review: Meds/Allgs Chart Reviewed, Consent Obtained/Reviewed and Anes Risks/Benef Reviewed Patient Risk: Intermediate Procedure Risk: Intermediate Anesthetic Plan Anesthetic Plan: MAC: Disposition: Standard PACU
--- NOTE | 2023-12-09 13:28 | P.BOP_ITS ---
Brief Operative Note Date of Service: 12/09/23 Pre-op diagnosis: Morbid obesity Post-op diagnosis: same Procedure: PROCEDURE DATE: 12/09/2023 PREOPERATIVE DIAGNOSIS: GERD POSTOPERATIVE DIAGNOSIS: ?Same as above. 1) small hiatal hernia, 2) distal gastritis PROCEDURE: Nrcxsjve-djfwgd-wftaqmtoulxj with biopsies Surgeon: Osmar De Luna M.D.. Ph.D. Threading Machine Setter: None ? Anesthesia: IV sedation Estimated blood loss: ?Minimal FINDINGS AND PROCEDURE: ? OPERATIVE INDICATIONS: ?The patient is a 43 year old male known to me who is interested in bariatric surgery. Due to his size an UGI study will be very limit ed in identifying details. Based on this information I recommended an upper endoscopy to evaluate the patient's stomach. Risks and complications of the surgery were discussed with the patient in advance particularly the possibility of perforation or bleeding that may require surgical intervention. The patient understood the risks and was in agreement with the plan. ? PROCEDURE: After informed consent was obtained by the patient, the patient was ?transferred to the Operating Room and was placed in the supine position.? The procedure was performed under general endotracheal anesthesia in supine position. An upper endoscopy was performed next, the oropharynx and esophagus appeared within the normal limits. There was a small hiatal hernia. The z-line was smooth. Two biopsies were obtained from the distal esophagus 2-3 cm proximal to the GE junction and two additional biopsies from the GE junction. The stomach was entered and it appeared to be of normal size. There was mild gastritis at d istal antrum. There was no stricture or ulcer. A biopsy was obtained from the distal antrum. No significant bleeding was noted from any of the biopsy sites. The scope was then advanced into the duodenum which appeared to be normal as well. At that point the duodenum ?and the stomach were decompressed and the scope was withdrawn from the patient's mouth. The patient extubated and was transferred in stable condition to the Recovery Room for further care. I was present and performed all steps of the procedure. There were no residents to assist with this case. Héctor De Luna M.D., Ph.D. Surgeon: Joey De Luna MD Anesthesia: MAC Was an Threading Machine Setter used for this Procedure?: No Estimated blood loss (mL): 0 IV fluids (mL): 400 Urine output (mL): 0 (No Hooper to record output) Pathology: other (1) antrum x1, 2) fundus x1, 3) GE junction x2, 4) distal esophagus x2) Condition: stable Disposition: PACU
--- NOTE | 2023-12-09 13:54 | PC.NURSE ---
Pt reports has a family emergency that he needs to be able to drive for and is unable to complete procedure. IV removed. Pt left stable with all belongings in possession.
== END | disposition home or self-care (01) ==
PROVIDERS: Visit Provider Surgery
DX: K21.9 Gastro-esophageal reflux disease without esophagitis (principal); Z53.29 Procedure and treatment not carried out because of patient's decision for other reasons; E66.01 Morbid (severe) obesity due to excess calories
CPT/HCPCS: J2704

== ENCOUNTER 2024-02-10 13:15 | Outpatient (AMB) | payer OTHER, SELFPAY ==
--- NOTE | 2024-02-10 13:27 | MHC.WMTHER ---
Intake Intake Visit Reasons: VIDEO BH F/U Allergies shrimp Allergy (Mild, Uncoded 02/24/24 15:35) Stomach Upset PFSH Medical History Morbid obesity with BMI of 60.0-69.9, adult Obstructive sleep apnea on CPAP Surgical History Hx of carpal tunnel repair Family History Mother No problems noted. Father No problems noted. 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 PT reports she has been happy as he was in [place] vacationing last week and was able to see his family and friends. During his trip he didn't follow the meal plan but did not overeat, he came back Thursday morning and has been returning to regular meal schedule. PT was open, active and engaged in session. Interventions: Active/Reflective listening. Processed events. Used CBT-based techniques to work in mental barriers and for cognitive restructuring. Gently challenge expectations and hopes around weight-loss surgery, while normalizing sense of desperation as he has lost substantial weight but due to high BMI he will eed to loss more in order to move forward with surgery. Plan: follow up in 4 -5 weeks. Assessment & Plan Assessment & Plan (1) Adjustment disorder: Code(s): F43.20 - Adjustment disorder, unspecified Plan Follow up in 1 month. Next reyes: 03/16/24 Via telehealth. Telehealth Telehealth [facility] Location of provider rendering services: other (Home office. [place], [place]) Location of patient: other ([place] in [place]) Patient Identification confirmed using: Name, : Yes Telehealth method: video Patient verbally consented to treatment: Yes Patient verbally consented to billing insurance company: Yes Patient informed of any privacy concerns related to visit: No Minutes spent on Phone/Video with Pt.: 60 Coding Level of Care Code Established Pt Tele Psytx >53 mins (75362) Patient Type Established Diagnoses Adjustment disorder F43.20 Time Spent (min) 60
== END 2024-02-10 14:00 | disposition home or self-care (01) ==
LOC: HO.HBST 13:23
PROVIDERS: Visit Provider Counselor Mental Health
DX: F43.20 Adjustment disorder, unspecified (principal)
CPT/HCPCS: 90837

== ENCOUNTER → 2024-02-10 13:15 | Outpatient (BNVA) | payer OTHER, SELFPAY | PROVIDERS: Visit Provider Counselor Mental Health ==

== ENCOUNTER 2024-02-24 14:53 | Outpatient (AMB) | payer OTHER, SELFPAY ==
[2024-02-24 14:55] VITALS: BP 158/86; PULSE 101; O2SAT 97; BMI 67.4
--- NOTE | 2024-02-24 14:55 | MHC.PC.OV ---
Vital Signs 02/24/24 14:55 Height 5 ft 10 in Weight 470 lb 0.408 oz BMI 67.4 BP 158/86 H Blood Pressure Location Lt radial Position Sitting Pulse 101 H Pulse Source Pulse Oximeter Pulse Oximetry (%) 97 Oxygen Delivery Method Room Air Intake Visit Reasons: PE Intake Note: Patient is here today for a physical. Marketing Development Manager Required: No Allergies shrimp Allergy (Mild, Uncoded 02/24/24 15:35) Stomach Upset Medication List - Last Reconciled 02/24/24 by Eliseo Seth MD CPAP (CPAP Machine/Device) As directed Tobacco use date assessed: 02/24/24 Dental Screening Dental Screen Date: 02/24/24 Did you have a dental visit in the last 12 months?: No Did you have a dental problem in the last 6 months where you did not have access to dental care?: No HPI PE HPI Details 43-year-old male presents to the office requesting an annual physical. Patient has been diagnosed with osteoarthritis of the right knee. Due to being severely overweight, surgical options are not possible for the knee. He received steroid injections which have not helped. Patient is requesting a referral for pain management. [facility] Medical History (Updated 02/24/24 @ 15:39 by Eliseo Seth MD) Morbid obesity with BMI of 60.0-69.9, adult Obstructive sleep apnea on CPAP Surgical History Hx of carpal tunnel repair Family History Mother No problems noted. Father No problems noted. 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 1. Little interest or pleasure in doing things: not at all 2. Feeling down, depressed, or hopeless: not at all 3. Trouble falling or staying asleep, or sleeping too much: not at all 4. Feeling tired or having little energy: not at all 5. Poor appetite or overeating: not at all 6. Feeling bad about yourself - or that you are a failure or have let yourself or your family down: not at all 7. Trouble concentrating on things, such as reading the newspaper or watching television: not at all 8. Moving or speaking so slowly that other people could have noticed. Or the opposite - being so fidgety or restless that you have been moving around a lot more than usual: not at all 9. Thoughts that you would be better off or of hurting yourself in some way: not at all Total score: 0 Depression Screening Interpretation: Negative Depression Screening Done: Yes 82540 - PHQ-9 Billing: Yes Source: Developed by Drs. Nik Silvestre, Tia Mariee, Tavares Elliott and colleagues, with an educational anthony from [employer]. Thrive Questionnaire Date Thrive assessed: 01/23/23 AUDIT C Alcohol Use Questionnaire (AUDIT-C) 1. How often do you have a drink containing alcohol?: Monthly or less 2. How many drinks containing alcohol do you have on a typical day when you are drinking?: 1 or 2 3. How often do you have six or more drinks on one occasion?: Never Total Score: 1 TONEY-7 AMB Questionnaire TONEY-7 Date TONEY - 7 assessed: 02/24/24 Feeling nervous, anxious, or on edge: 0 = Not at all Not being able to stop or control worryin = Not at all Worrying too much about different things: 0 = Not at all Trouble relaxin = Not at all Being so restless that it is hard to sit still: 0 = Not at all Becoming easily annoyed or irritable: 0 = Not at all Feeling afraid as if something awful might happen: 0 = Not at all Total TONEY-7 score (0-4 normal; 5-9 mild; 10-14 moderate; 15-21 severe): 0 Source: Developed by Drs. Nik Silvestre, Tia Mariee, Tavares Elliott and colleagues, with an educational anthony from [employer]. TONEY-7 Assessment Billing TONEY-7 Assessment Tool: TONEY-7 Assessment [id number] Physical exam (Primary Care) Vital Signs: Last Vital Signs Pulse 101 H 02/24/24 14:55 BP 158/86 H 02/24/24 14:55 Pulse Ox 97 02/24/24 14:55 Oxygen Delivery Method Room Air 02/24/24 14:55 Care Plan Goal for BP management: Elevated blood pressure. Not on any medications. BMI result Body Mass Index 67.4 Patient is seeing the metabolic clinic BMI Assessment/Plan discussion: High Tobacco/Smoking Status: Tobacco use Status Tobacco use date assessed 02/24/24 02/24/24 15:09 Patient Tobacco Use Status Former Tobacco user 02/24/24 14:56 e-Cigarette/Vaping Use Never Used 02/24/24 14:56 PHQ-9: PHQ-9 Score PHQ-9: Total score 0 02/24/24 15:34 Depression Screening Interpretation: Negative Thrive Assessment: Date of Thrive Assessment Date Thrive assessed 01/23/23 02/24/24 14:56 Const Other: Obese male in no acute distress. General: cooperative and healthy appearing Nutritional Appearance: well nourished Orientation/consciousness: patient oriented x3 Limitations: no limitations HENMT Head: Yes normal to inspection Eyes General: appearance normal, both eyes and all related structures Neck Neck: Yes normal visual inspection Chest Chest palpation & inspection: normal palpation of entire chest wall Resp Effort & Inspection: normal respiratory effort Neuro General: patient oriented x3 Assessment and Plan Assessment & Plan (1) Morbid obesity with BMI of 60.0-69.9, adult: Code(s): E66.01 - Morbid (severe) obesity due to excess calories; Z68.44 - Body mass index [BMI] 60.0-69.9, adult Plan: Patient is under a dietary regimen from the obesity clinic. He is being considered for weight loss surgery. (2) Obstructive sleep apnea on CPAP: Code(s): G47.33 - Obstructive sleep apnea (adult) (pediatric) Plan: Continue CPAP. (3) Elevated BP without diagnosis of hypertension: Code(s): R03.0 - Elevated blood-pressure reading, without diagnosis of hypertension Plan: Blood pressure is elevated. Patient will be monitoring the blood pressure and ringing in the results. (4) Degenerative arthritis of right knee: Code(s): M17.11 - Unilateral primary osteoarthritis, right knee Qualifiers: Osteoarthritis type: unspecified Qualified Code(s): M17.11 - Unilateral primary osteoarthritis, right knee Plan: Consult with pain management will be placed. (5) Annual physical exam: Code(s): Z00.00 - Encounter for general adult medical examination without abnormal findings Plan: Blood work has been ordered. Will call with the results. A1c should be less than 7.0. Patient should be compliant with diet and exercise and following an 1800 ADA diet. Coding Level of Care Code Est Pt Level 3 (14013) Est Pt Prev Care 40-64y(55328) Diagnoses Morbid obesity with BMI of 60.0-69.9, adult E66.01; Z68.44 Obstructive sleep apnea on CPAP G47.33 Elevated BP without diagnosis of hypertension R03.0 Osteoarthritis of right knee, unspecified osteoarthritis type M17.11 Osteoarthritis type: unspecified Annual physical exam Z00.00 Additional Codes TONEY-7 Assessment Billing - TONEY-7 Assessment Tool: TONEY-7 Assessment [id number] ([id number])
== END 2024-02-24 15:34 | disposition home or self-care (01) ==
PROVIDERS: PCP Internal Medicine; Visit Provider Internal Medicine
DX: Z00.00 Encounter for general adult medical examination without abnormal findings (principal); E66.01 Morbid (severe) obesity due to excess calories; Z68.44 Body mass index [BMI] 60.0-69.9, adult; G47.33 Obstructive sleep apnea (adult) (pediatric); R03.0 Elevated blood-pressure reading, without diagnosis of hypertension; M17.11 Unilateral primary osteoarthritis, right knee
CPT/HCPCS: 99396

== ENCOUNTER 2024-03-04 13:22 | Outpatient (AMB) | payer OTHER, SELFPAY ==
--- NOTE | 2024-03-04 13:30 | A.OFFVIS_ITS ---
Vital Signs 03/04/24 13:36 Height 5 ft 10 in Weight 471 lb BMI 67.6 BP 190/99 H Blood Pressure Location Rt radial Position Sitting Pulse 78 Pulse Source Pulse Oximeter Pulse Oximetry (%) 98 Oxygen Delivery Method Room Air Intake Visit Reasons: Osteoarthritis of Right Knee Intake Note: Pain today 11/26 Medical Reimbursement Specialist Required: No Accompanied by: Self / Same As Patient Allergies shrimp Allergy (Mild, Uncoded 02/24/24 15:35) Stomach Upset HPI HPI Osteoarthritis of Right Knee: Details: Patient is a 43 years old male with history of right knee OA, morbid obesity, ANDREIA/CPAP, left ankle pain, presents today for initial evaluation of right knee pain. He was referred to us by Orthopedics and PCP providers. Patient has significant morbid obesity with BMI>67 and is not surgical candidate. He has received cortisone and Durolane injections with temporary and partial pain relief. Patient is attending at [facility] program for over a year and has made some progress with weight loss (BMI 74.9 in 01/02/23). Patient reports he works at [employer] and has hard time standing, walking, bending or flexing his knees. Patient is constant and negatively affects his daily activities and functioning, work, sleep, mood and social interactions. He reports one time use of tramadol provided by his friend has provided him good pain relief. I have informed patient that our office does not offer opioid prescribing. Patient is interested to undergo diagnostic genicular nerve blocks for potential genicular RFA. Given significant pain and body habitus, he is not able to pursue formal physical therapy. Denies any fever, chills, chest pain, infection, rash, radicular back pain, weakness, bladder or bowel dysfunction or saddle anesthesia. Location: Right knee knee Duration: Chronic pain >1.5 years Characteristics of symptom or complaint: Aching, sore, tiring, cramping, sore, hurting, heavy, stabbing, burning Aggravating or associated factors: Walking, bending, climbing stairs, standing Relieving factors: Tramadol x1, NSAIDs, Tylenol, ice/heat, elevation, rest Treatment: Cortisone and gel injections [facility] Medical History Morbid obesity with BMI of 60.0-69.9, adult Obstructive sleep apnea on CPAP Surgical History Hx of carpal tunnel repair Family History Mother No problems noted. Father No problems noted. 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 Morbidly obese. Alert and oriented. Mood and affect appropriate. Follows and participates in conversation appropriately. Respiratory effort is unlabored. No cough. Able to transition from sit to stand unassisted. Ambulates with bilaterally normal heel strike and toe off. Extrem Right lower extremity: knee (Limited ROM due to pain and body habitus.) Details: normal to inspection, tenderness (global anterior knee) Location: of the medial joint line and crepitus; no swelling, no ecchymosis, no deformity and no unusual warmth Results Reviewed Results Reviewed: XR KNEE, RIGHT XR KNEE AP STANDING 02/13/23 CLINICAL INFORMATION: Pain. COMPARISON: Radiographs dated 02/03/2023. FINDINGS: Bony mineralization is normal. There is moderately severe asymmetric narrowing of the medial joint space compartment of the right knee. The lateral and patellofemoral joint space compartments are well-maintained. There is tricompartment peripheral osteophyte formation. There is no fracture, dislocation or significant joint effusion. The medial joint space compartment of the left knee is mildly narrowed, and the lateral joint space compartment is well-maintained. There is peripheral osteophyte formation of the lateral and medial joint space compartments of the left knee. There is a mild varus configuration of the right knee. No significant varus or valgus configuration is seen of the left knee. There are soft tissue calcifications suggesting bilateral lower extremity venous insufficiency. IMPRESSION: 1. There is tricompartment osteoarthritic change of the right knee, most pronounced in the medial joint space compartment, where it is moderately severe. 2. There is a mild varus configuration of the right knee. 3. There is moderate osteoarthritic change of the medial joint space compartment of the left knee, and mild osteoarthritic change is seen of the lateral joint space compartment. Assessment & Plan Assessment & Plan (1) Right knee pain: Code(s): M25.561 - Pain in right knee Category: Medical (2) Degenerative arthritis of right knee: Code(s): M17.11 - Unilateral primary osteoarthritis, right knee Category: Medical Qualifiers: Osteoarthritis type: unspecified Qualified Code(s): M17.11 - Unilateral primary osteoarthritis, right knee (3) Morbid obesity with BMI of 60.0-69.9, adult: Code(s): E66.01 - Morbid (severe) obesity due to excess calories; Z68.44 - Body mass index [BMI] 60.0-69.9, adult Category: Medical Plan Schedule diagnostic right genicular nerve block with local and fluoroscopy for potential genicular RFA. We also discussed Sprint PNS trial and therapeutic injections. Informational pamphlet provided to patient. Expectations, risks and benefits were reviewed. Patient is aware he will be contacted to schedule this procedure. Scripts provided for lidocaine patch and Celebrex. Side effects and precautions were discussed with patient. Continue weight loss journey, follow up with [facility] as scheduled. Encouraged daily physical activity, adequate hydration, well-balanced diet, avoid pro-inflammatory foods, consider intermittent fasting and Mediterranean diet. All questions and concerns have been answered and patient agreed with the plan. Follow up after injections and sooner as needed. Medications: New lidocaine 5% 1 patch topical DAILY 30 days 30 ea 0RF pain M17.11 - Unilateral primary osteoarthritis, right knee, M25.561 - Pain in right knee celecoxib (Celebrex) Take it with food and full glass of water. Avoid other NSAIDs. 200 mg PO BID 30 days PRN 60 caps 0RF pain M17.11 - Unilateral primary osteoarthritis, right knee, M25.561 - Pain in right knee Coding Level of Care Code New Pt Level 4 (91047) Diagnoses Right knee pain M25.561 Osteoarthritis of right knee, unspecified osteoarthritis type M17.11 Osteoarthritis type: unspecified Morbid obesity with BMI of 60.0-69.9, adult E66.01; Z68.44
[2024-03-04 13:36] VITALS: BP 190/99; PULSE 78; O2SAT 98; BMI 67.6
== END 2024-03-04 14:16 | disposition home or self-care (01) ==
PROVIDERS: PCP Internal Medicine; Referring Provider Internal Medicine; Visit Provider Nurse Practitioner Family
DX: M25.561 Pain in right knee (principal); M17.11 Unilateral primary osteoarthritis, right knee; E66.01 Morbid (severe) obesity due to excess calories; Z68.44 Body mass index [BMI] 60.0-69.9, adult
CPT/HCPCS: 99204; 99214

== ENCOUNTER → 2024-03-04 13:22 | Outpatient (BNVA) | payer OTHER, SELFPAY | PROVIDERS: PCP Internal Medicine; Referring Provider Internal Medicine; Visit Provider Nurse Practitioner Family ==

== ENCOUNTER 2024-03-08 08:39 | Outpatient (REF) | payer OTHER, SELFPAY ==
[2024-03-08 09:03] LABS: Hematocrit 45.4 % (42.0-52.0); Hemoglobin 14.6 g/dl (14.0-18.0); Mean Corpuscular HGB Conc 32.2 g/dl (31.0-36.0); Mean Corpuscular Hemoglobin 31.7 pg (27.0-33.0); Mean Corpuscular Volume 98.7 fL (80.0-98.0); Platelet Count 204 X10*3/uL (160-400); Red Cell Distribution Width 13.6 % (11.0-16.0); White Blood Count 8.8 X10*3/uL (4.8-10.8)
[2024-03-08 09:51] LABS: Alanine Aminotransferase 20 U/L (0-40); Albumin Level 3.8 g/dL (3.5-5.0); Alkaline Phosphatase 65 U/L (39-117); Anion Gap 11 (12-20); Aspartate Amino Transferase 18 U/L (5-37); Bilirubin Direct 0.2 mg/dL (0.0-0.5); Bilirubin Total 0.7 mg/dL (0.0-1.0); Blood Urea Nitrogen 20 mg/dL (9-16); Calcium 8.8 mg/dL (8.4-10.2); Carbon Dioxide 28 mmol/L (22-29); Chloride 106 mmol/L (96-108); Cholesterol 148 mg/dL (<200); Estimated Glomerular Filt Rate > 60; Glucose Random 107 mg/dL (60-115); HDL Cholesterol 35 mg/dL (>40); LDL Cholesterol Calculated 95 mg/dL (<100); Potassium 4.9 mmol/L (3.3-5.1); Sodium 140 mmol/L (135-145); Total Protein 7.2 g/dL (6.5-8.0); Triglycerides 91 mg/dL (<150)
[2024-03-08 10:02] LABS: Thyroid Stimulating Hormone 1.84 uIU/mL (0.32-4.0)
[2024-03-08 10:18] LABS: Appearance Urine Cloudy; Color Urine Yellow; Glucose Urine UA Negative (Negative); Leukocyte Esterase Urine Large (3+) (Negative); Nitrite Urine Negative (Negative); Specific Gravity - Urine 1.025 (1.005-1.025); UMIC TRIGGER UA YES; Urine Blood Negative (Negative); Urine Ketones Negative (Negative); Urine Protein Negative (Neg-Trace)
[2024-03-08 10:34] LABS: Bacteria Urine 1+ (None Seen); Hyaline Casts Urine 0-2 /LPF (0-2); RBC Urine 0-2 /HPF (0-2); WBC Urine >50 /HPF (0-5)
== END 2024-03-08 08:40 | disposition home or self-care (01) ==
LOC: HO.LAB 08:39
PROVIDERS: PCP Internal Medicine; Visit Provider Internal Medicine
DX: M17.11 Unilateral primary osteoarthritis, right knee (principal); E66.01 Morbid (severe) obesity due to excess calories; Z68.44 Body mass index [BMI] 60.0-69.9, adult; G47.33 Obstructive sleep apnea (adult) (pediatric)
CPT/HCPCS: 36415; 80048; 80061; 80076; 81001; 81003; 84443; 85027

== ENCOUNTER → 2024-03-16 12:08 | Outpatient (BNVA) | payer OTHER, SELFPAY | PROVIDERS: PCP Internal Medicine; Visit Provider Counselor Mental Health ==

== ENCOUNTER → 2024-03-16 12:08 | Outpatient (AMB) | payer OTHER, SELFPAY ==
--- NOTE | 2024-03-16 13:30 | MHC.WMTHER ---
Intake Intake Visit Reasons: VIDEO F/U Allergies shrimp Allergy (Mild, Uncoded 02/24/24 15:35) Stomach Upset [facility] Medical History Morbid obesity with BMI of 60.0-69.9, adult Obstructive sleep apnea on CPAP Surgical History Hx of carpal tunnel repair Family History Mother No problems noted. Father No problems noted. 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 PT reports he has been struggling with mobility due to knee and ankle issues. Went to see PCP for physical and his weight was 471Lbs, however at home his weight was 455Lbs. PT has not texted back to [facility]-provider since returning from [facility] and is not following recommended meal plan. Current meal: Breakfast: a sandwich from work, Lunch: salad with meat or pasta with meat, Dinner: Bahamian food (yesterday) or if cooks at home then is a style meal. Exercise: None. Objective PT presents for a follow up via Telehealth to continue WMP-support for habit change and weight-loss. PT was open, engaged and active in session. He seemed aware of behaviors that set him back into weight-loss journey and reflected about new goals starting Thursday. PT responded well to interventions, however, he continues showing dichotomous thinking which impacts realistic expectations around weight loss surgery. Interventions Active listening CBT: cognitive challenging, reframing thoughts, constructive feedback. Behavioral modification interventions for goal setting. Psychoeducation about behavioral patterns leading to fall of track and rigid mentally that at times don;t allow him to make the necessary changes long-term. Provided validation and normalization of feelings around physical struggles and mobility issues and consequences. Reflected on how weight impacts mobility, and mobility issues/weight worsens physical health, while exploring ways to compromise and commit to suggestions by previous providers in terms of physical activity and recommended exercise plan. Plan: Continue meeting on a monthly basis. Provider will send client the link to [employer] website to start using it. PT will re-stablish contact with Dr. Garay. PT will consult with Dr. Sesay about questions the client has. Assessment & Plan Assessment & Plan (1) Adjustment disorder: Code(s): F43.20 - Adjustment disorder, unspecified Plan Follow up in 1 month. Next reyes: 04/13/24 at 12 noon Via telehealth. Telehealth Telehealth Telehealth Platform: [facility] Location of provider rendering services: other Location of patient: other (Work.) Patient Identification confirmed using: Name, : Yes Telehealth method: video Patient verbally consented to treatment: Yes Patient verbally consented to billing insurance company: Yes Patient informed of any privacy concerns related to visit: No Minutes spent on Phone/Video with Pt.: 60 Coding Level of Care Code Established Pt Tele Psytx >53 mins (69085) Patient Type Established Diagnoses Adjustment disorder F43.20 Time Spent (min) 60
== END ==
PROVIDERS: PCP Internal Medicine; Visit Provider Counselor Mental Health
DX: F43.20 Adjustment disorder, unspecified (principal)
CPT/HCPCS: 90837

== ENCOUNTER → 2024-04-12 12:04 | Outpatient (BNVA) | payer OTHER, SELFPAY | PROVIDERS: PCP Internal Medicine; Visit Provider Counselor Mental Health ==

== ENCOUNTER → 2024-04-12 12:04 | Outpatient (AMB) | payer OTHER, SELFPAY ==
--- NOTE | 2024-04-12 12:05 | A.OFFWM_ITS ---
Intake Intake Visit Reasons: VIDEO F/U Allergies shrimp Allergy (Mild, Uncoded 02/24/24 15:35) Stomach Upset PFSH Medical History Morbid obesity with BMI of 60.0-69.9, adult Obstructive sleep apnea on CPAP Surgical History Hx of carpal tunnel repair Family History Mother No problems noted. Father No problems noted. 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 He is dealing with stress and reports he has not communicated with [facility]-Provider as required as he's not following the meal or exercise plan and has gained weight. Objective: PT presents for a follow up via Telehealth Reflective listening. Processed sources of stress at work, personal life with health and other family worries. Discussed and challenged his commitment about pursuing weight-loss surgery and current low motivation levels. Cognitive challenging and psychoeducation about cycle of responses using personal situations as triggers and responses leading to not following steps for sucessfull weight-loss. Assessment/Response: * Mental status: WNL * Risk reported/identified:None reported. PT active and engaged. Responded well to modalities despite showing cognitive resistances to behavioral changes necessary to succeed with [facility] journey. Plan: Continue meeting monthly. However, client needs to decide if he will continue at the program or if we will be referred elsewhere to continue counseling services. Assessment & Plan Assessment & Plan (1) Adjustment disorder: Code(s): F43.20 - Adjustment disorder, unspecified Plan follow up in 1 month Next reyes: 05/10/24 at 12om, via Telehealth Telehealth Telehealth Telehealth Platform: Telephone Location of provider rendering services: other (Home office. [place], [place]) Location of patient: address on file Patient Identification confirmed using: Name, : Yes Telehealth method: video Patient verbally consented to treatment: Yes Patient verbally consented to billing insurance company: Yes Patient informed of any privacy concerns related to visit: No Minutes spent on Phone/Video with Pt.: 60 Coding Level of Care Code Established Pt Tele Psytx >53 mins ([id number]) Patient Type Established Diagnoses Adjustment disorder F43.20 Time Spent (min) 60 Comment Start time: 12pm, End time: 1pm.
== END ==
LOC: HO.HBST 12:04
PROVIDERS: PCP Internal Medicine; Visit Provider Counselor Mental Health
DX: F43.20 Adjustment disorder, unspecified (principal)
CPT/HCPCS: 90837

== ENCOUNTER 2024-05-17 06:14 | Outpatient (REF) | payer OTHER, SELFPAY | END 2024-05-17 06:15 | disposition home or self-care (01) | LOC: CF 06:14 | PROVIDERS: Visit Provider Anesthesiology | DX: Z13.89 Encounter for screening for other disorder (principal) ==

== ENCOUNTER → 2024-09-08 13:54 | Outpatient (BNVA) | payer OTHER, SELFPAY | PROVIDERS: PCP Internal Medicine; Visit Provider Physician Assistant Medical | DX: E66.01 Morbid (severe) obesity due to excess calories (principal); Z68.45 Body mass index [BMI] 70 or greater, adult; G47.33 Obstructive sleep apnea (adult) (pediatric); I10 Essential (primary) hypertension; M17.11 Unilateral primary osteoarthritis, right knee; R73.03 Prediabetes; R53.83 Other fatigue; R06.83 Snoring; G47.8 Other sleep disorders; Z99.89 Dependence on other enabling machines and devices | CPT/HCPCS: 83036; 96127 ==

== ENCOUNTER → 2024-09-08 13:54 | Outpatient (AMB) | payer OTHER, SELFPAY ==
--- NOTE | 2024-09-08 14:22 | A.OFFPC_ITS ---
Vital Signs 09/08/24 14:25 Height 5 ft 10 in Weight 539 lb 11.065 oz BMI 77.4 BP 140/76 H Blood Pressure Location Rt brachial Position Sitting Pulse 80 Pulse Source Pulse Oximeter Temp Source Temporal Artery Scan Pulse Oximetry (%) 96 Oxygen Delivery Method Room Air Intake Visit Reasons: discuss weight loss Intake Note: Patient is here to follow up on Discuss weight loss. Academic Services Professional Required: No Hangar Attendant: Not Required per policy Accompanied by: Self / Same As Patient Allergies shrimp Allergy (Mild, Uncoded 09/08/24 16:33) Stomach Upset Medication List - Last Reconciled 09/08/24 by Rachna Loredo PA-C CPAP (CPAP Machine/Device) As directed lisinopril 10 mg PO DAILY naproxen 500 mg PO BID PRN tirzepatide (weight loss) (Zepbound) 2.5 mg (0.5 mL) subcut QWEEK Tobacco use date assessed: 09/08/24 Dental Screening Dental Screen Date: 09/08/24 Did you have a dental visit in the last 12 months?: No Did you have a dental problem in the last 6 months where you did not have access to dental care?: No Was dental information given to patient?: No PFSH Medical History Prediabetes Hypertension Morbid obesity with BMI of 70 and over, adult Obstructive sleep apnea on CPAP Surgical History Hx of carpal tunnel repair Family History Mother No problems noted. Father No problems noted. 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 1. Little interest or pleasure in doing things: not at all 2. Feeling down, depressed, or hopeless: not at all 3. Trouble falling or staying asleep, or sleeping too much: not at all 4. Feeling tired or having little energy: not at all 5. Poor appetite or overeating: not at all 6. Feeling bad about yourself - or that you are a failure or have let yourself or your family down: not at all 7. Trouble concentrating on things, such as reading the newspaper or watching television: not at all 8. Moving or speaking so slowly that other people could have noticed. Or the opposite - being so fidgety or restless that you have been moving around a lot more than usual: not at all 9. Thoughts that you would be better off or of hurting yourself in some way: not at all Total score: 0 Depression Screening Interpretation: Negative Depression Screening Done: Yes 68369 - PHQ-9 Billing: Yes Source: Developed by Drs. Nik Silvestre, Tia Mariee, Tavares Elliott and colleagues, with an educational anthony from [employer]. Thrive Questionnaire Date Thrive assessed: 09/08/24 I am a: Patient What is your living situation today?: I have a steady place to live Within the past 12 months, did the food you bought not last and you didn't have the money to get more?: Never true Within the past 12 months, did you worry whether your food would run out before you got money to buy more?: Never true Do you have trouble paying for medicines?: No Do you have trouble getting transportation to medical appointments?: No Do you have trouble paying your heating and electricity bill?: No Do you have trouble taking care of your child, family member or friend?: No Do you have trouble with day-to-day activities such as bathing, preparing meals, shopping, managing finances, etc.?: No Are you currently unemployed and looking for a job?: No Are you interested in more education?: No Please select the resources that you would like help with: None Currently or been in a relationship where the following occur: No concerns reported THRIVE Score: 0 AUDIT C Alcohol Use Questionnaire (AUDIT-C) 2. How many drinks containing alcohol do you have on a typical day when you are drinking?: 1 or 2 3. How often do you have six or more drinks on one occasion?: Less than monthly Total Score: 1 Score Reviewed/Action Taken: Yes TONEY-7 AMB Questionnaire TONEY-7 Date TONEY - 7 assessed: 09/08/24 Feeling nervous, anxious, or on edge: 0 = Not at all Not being able to stop or control worryin = Not at all Worrying too much about different things: 0 = Not at all Trouble relaxin = Not at all Being so restless that it is hard to sit still: 0 = Not at all Becoming easily annoyed or irritable: 0 = Not at all Feeling afraid as if something awful might happen: 0 = Not at all Total TONEY-7 score (0-4 normal; 5-9 mild; 10-14 moderate; 15-21 severe): 0 Source: Developed by Drs. Nik Silvestre, Tia Mariee, Tavares Elliott and colleagues, with an educational anthony from [employer]. TONEY-7 Assessment Billing TONEY-7 Assessment Tool: TONEY-7 Assessment 26876 Physical exam (Primary Care) Vital Signs: Last Vital Signs Pulse 80 09/08/24 14:25 BP 140/76 H 09/08/24 14:25 Pulse Ox 96 09/08/24 14:25 Oxygen Delivery Method Room Air 09/08/24 14:25 BMI result Body Mass Index 77.4 Tobacco/Smoking Status: Tobacco use Status Tobacco use date assessed 09/08/24 09/08/24 14:32 Patient Tobacco Use Status Former Tobacco user 09/08/24 14:23 e-Cigarette/Vaping Use Never Used 09/08/24 14:23 PHQ-9: PHQ-9 Score PHQ-9: Total score 0 09/08/24 15:06 Depression Screening Interpretation: Negative Thrive Assessment: Date of Thrive Assessment Date Thrive assessed 09/08/24 09/08/24 14:32 Currently or been in a relationship where the following occur: No concerns reported Results AMB Hemoglobin A1c AMB Hemoglobin A1c 6.0 % Last Edit by KYREE Barillas on 09/08/24 15:00 Results Reviewed Results Reviewed: Laboratory Last Values Hgb A1c (Clinic) 6.0 % (4.0-6.0) 02/20/25 14:54 Coding Level of Care Code Est Pt Level 4 (18782) Complex EM visit Add On G2211 Diagnoses Morbid obesity with BMI of 70 and over, adult E66.01; Z68.45 Obstructive sleep apnea on CPAP G47.33 Hypertension I10 Osteoarthritis of right knee, unspecified osteoarthritis type M17.11 Osteoarthritis type: unspecified Prediabetes R73.03 Fatigue R53.83 Snoring R06.83 Non-restorative sleep G47.8 Additional Codes PHQ-9 - 94585 - PHQ-9 Billing: Yes ([id number]) TONEY-7 Assessment Billing - TONEY-7 Assessment Tool: TONEY-7 Assessment 89837 ([id number]) Assessment & Plan Assessment & Plan (1) Morbid obesity with BMI of 70 and over, adult: Code(s): E66.01 - Morbid (severe) obesity due to excess calories; Z68.45 - Body mass index [BMI] 70 or greater, adult Category: Medical Plan: Will start the patient on zepbound 2.5 mg, pending approval, on a weekly basis to assist with weight loss. Condition is chronic and stable continue to monitor. (2) Obstructive sleep apnea on CPAP: Code(s): G47.33 - Obstructive sleep apnea (adult) (pediatric) Category: Medical Plan: Patient to continue utilizing CPAP. Condition is chronic and stable continue to monitor. (3) Hypertension: Code(s): I10 - Essential (primary) hypertension Category: Medical Plan: Goal 130/80. Patient will be started on lisinopril 10 mg with follow-up in 1 month. Condition is chronic and stable continue to monitor. (4) Degenerative arthritis of right knee: Code(s): M17.11 - Unilateral primary osteoarthritis, right knee Category: Medical Qualifiers: Osteoarthritis type: unspecified Qualified Code(s): M17.11 - Unilateral primary osteoarthritis, right knee Plan: Will refer patient to pain management for injections in his knee that he was scheduled for in the past. Will start patient on naproxen 500 mg b.i.d.. Condition is chronic and stable continue to monitor. (5) Prediabetes: Code(s): R73.03 - Prediabetes Category: Medical Plan: Will continue to monitor the patient's pre diabetes his A1c level today is 6.0. Will continue to monitor. (6) Fatigue: Code(s): R53.83 - Other fatigue Category: Medical Plan: Condition is chronic and stable continue to monitor. (7) Snoring: Code(s): R06.83 - Snoring Category: Medical Plan: Condition is chronic and stable continue to monitor. (8) Non-restorative sleep: Code(s): G47.8 - Other sleep disorders Category: Medical Plan: Condition is chronic and stable continue to monitor. Plan Plan - zepbound 2.5mg weekly for weight management, pending insurance approval - Initiate antihypertensive therapy with a starting dose of 10 mg of lisinopril, with plans for titration in one month pending re-evaluation. - Arrange for follow-up blood tests, including fasting lipid profile, Hemoglobin A1c, comprehensive metabolic panel (CMP), complete blood count (CBC), prostate- specific antigen (PSA), thyroid function tests, vitamin and mineral levels. - Prescribe naproxen 500 mg twice daily for right knee arthritis pain management. - Re-refer to orthopedic and pain management services for further evaluation of right knee pain. Orders: Orders Complete Blood Count Auto Diff Today Z00.00 - Encounter for general adult medical examination without abnormal findings Comprehensive Hardy. Panel Fast Today Z00.00 - Encounter for general adult medical examination without abnormal findings Lipid Panel Today Z00.00 - Encounter for general adult medical examination without abnormal findings Liver Panel Today Z00.00 - Encounter for general adult medical examination without abnormal findings C Reactive Protein Today Z00.00 - Encounter for general adult medical examination without abnormal findings Vitamin B12 and Folate Today Z00.00 - Encounter for general adult medical examination without abnormal findings Vitamin D 25-OH Total Today Z00.00 - Encounter for general adult medical examination without abnormal findings AMB Hemoglobin A1c Today Z13.9 - Encounter for screening, unspecified Magnesium Today Z00.00 - Encounter for general adult medical examination without abnormal findings PSA,Total (Free>4and<10) Today Z00.00 - Encounter for general adult medical examination without abnormal findings TSH reflex Free T4 Today Z00.00 - Encounter for general adult medical examination without abnormal findings Vitamin B1 Today Z00.00 - Encounter for general adult medical examination without abnormal findings Referrals Pain Management Referral M17.11 - Unilateral primary osteoarthritis, right knee Medications: New 2 lisinopril 10 mg PO DAILY 30 tabs 0RF tirzepatide (weight loss) (Zepbound) for 4 weeks 2.5 mg (0.5 mL) subcut QWEEK 2 mL 0RF E66.01 - Morbid (severe) obesity due to excess calories, G47.33 - Obstructive sleep apnea (adult) (pediatric), G47.8 - Other sleep disorders, I10 - Essential (primary) hypertension, M17.11 - Unilateral primary osteoarthritis, right knee, R06.83 - Snoring, R53.83 - Other fatigue, R73.03 - Prediabetes, Z68.45 - Body mass index [BMI] 70 or greater, adult naproxen 500 mg PO BID PRN 60 tabs 1RF pain Patient Instructions: Patient Instructions - Begin the use of zepbound 2.5 mg, pending approval, on a weekly basis to assist with weight loss. - Take prescribed antihypertensive medication (10 mg) each morning. - Take 500 mg of naproxen twice daily for knee pain. - Monitor blood pressure at home at least two to three times per week and bring readings to next appointment. - Get fasting blood tests done before the next follow-up appointment, ensuring 12-hour fasting beforehand. - Follow up with orthopedic and pain management services. - Return for a follow-up visit in one month. Scribe Plan - Not visible on output: History of Present Illness The patient is a 43-year-old male presenting with concerns regarding weight loss management and evaluation of hypertension. He reports a history of obesity, with a current Body Mass Index (BMI) of 77 kg/m?, and has previously engaged in a bariatric surgery program which he discontinued due to logistical challenges and concerns about post-surgical recovery, as experienced by his acquaintances. The patient has a significant background of obstructive sleep apnea, for which he uses a Continuous Positive Airway Pressure (CPAP) device. He recalls last having blood work in February, revealing acceptable cholesterol levels and normal thyroid function. The patient has a medical history of persistent elevated BP readings without a diagnosis of hypertension. He has experienced headaches, for which he attributes his elevated blood pressure, a condition present since childhood. It is noted that he pursues weight loss through IM medication. The patient denies any prior diagnosis of diabetes but has been informed about prediabetes a few years ago. Additionally, he seeks management for right knee arthritis, previously managed with pain management consultations, which were not reappointed. Social History - Lives alone, with no family nearby. - Engaged in employment but specific occupation details are not provided. - Reports challenges with attending scheduled appointments, influencing past healthcare engagement. - Discussed a prior trial of a bariatric surgery program which was discontinued due to logistical challenges and influence from experiences of acquaintances with extended recovery times post-surgery. Review of Systems - Neurological: Reports frequent headaches. - Musculoskeletal: Reports knee pain (right side). Physical Exam Appearance: Alert. Oriented X3. No acute distress. Head: Normal external exam. Normocephalic. Atraumatic. Eyes: Pupils are equal, round, and reactive to light. Extraocular movements intact. Conjunctiva and sclera normal. Eyelids normal. Ears: External auditory canal normal. Tympanic membranes normal. Throat: Pharynx normal. Uvula midline. Moist mucous membranes. Neck: Normal inspection. Neck supple. Full range of motion. No adenopathy. Thyroid Normal. No meningeal signs. No neck mass noted. Cardiovascular: Normal heart rate and rhythm. Heart sound normal. No murmurs noted. Pulses normal throughout. Respiratory: No respiratory distress. Painless inspiration. Breath sounds nor mal. No wheezes/rales/rhonchi noted. Chest nontender. No accessory muscle usage noted or decreased air movement noted. Abdomen: Soft and nontender. Bowel sounds normal in all 4 quadrants. No distention noted. No organomegaly noted. No visible injury noted. Back: No costovertebral angle tenderness. Full range of motion noted. Skin: Skin warm and dry. Normal skin color. Normal skin turgor. No rashes /lesions/lacerations noted. Extremities: No lower extremity edema. Extremities exhibit normal range of motion. Extremities nontender. Neuro: Oriented X 3. No motor deficit. No sensory deficit. Reflexes normal. Results - Labs: Hemoglobin A1c reveals status consistent with prediabetes. Plan - zepbound 2.5mg weekly for weight management, pending insurance approval - Initiate antihypertensive therapy with a starting dose of 10 mg of lisinopril, with plans for titration in one month pending re-evaluation. - Arrange for follow-up blood tests, including fasting lipid profile, Hemoglobin A1c, comprehensive metabolic panel (CMP), complete blood count (CBC), prostate- specific antigen (PSA), thyroid function tests, vitamin and mineral levels. - Prescribe naproxen 500 mg twice daily for right knee arthritis pain management. - Re-refer to orthopedic and pain management services for further evaluation of right knee pain. Patient was informed and verbally consented to the use of an ambient scribe for clinic note documentation during this visit. Discussion Notes I discussed with the patient the diagnosis of obesity and associated conditions including hypertension, prediabetes, and obstructive sleep apnea. The potential use of semaglutide (Wegovy) was outlined as a non-surgical weight loss option, with the process of approval and initiation fully explained. Furthermore, the patient was counseled on the importance of managing blood pressure to mitigate the risks of cardiovascular events such as myocardial infarction and stroke. We addressed the chronically high blood pressure with an initial therapeutic plan involving an antihypertensive medication. An explanation of the prescribed naproxen for knee pain was provided, along with the necessary follow-up steps, including rescheduling missed orthopedic and pain management appointments. Emphasis was placed on the need for regular monitoring of his blood pressure and adherence to medication and lifestyle interventions. Patient Instructions - Begin the use of zepbound 2.5 mg, pending approval, on a weekly basis to assist with weight loss. - Take prescribed antihypertensive medication (10 mg) each morning. - Take 500 mg of naproxen twice daily for knee pain. - Monitor blood pressure at home at least two to three times per week and bring readings to next appointment. - Get fasting blood tests done before the next follow-up appointment, ensuring 12-hour fasting beforehand. - Follow up with orthopedic and pain management services. - Return for a follow-up visit in one month.
[2024-09-08 14:25] VITALS: BP 140/76; PULSE 80; O2SAT 96; BMI 77.4
== END ==
PROVIDERS: PCP Internal Medicine; Visit Provider Physician Assistant Medical
DX: E66.01 Morbid (severe) obesity due to excess calories (principal); Z68.45 Body mass index [BMI] 70 or greater, adult; G47.33 Obstructive sleep apnea (adult) (pediatric); I10 Essential (primary) hypertension; M17.11 Unilateral primary osteoarthritis, right knee; R73.03 Prediabetes; R53.83 Other fatigue; R06.83 Snoring; G47.8 Other sleep disorders

== ENCOUNTER 2024-09-15 14:12 | Outpatient (AMB) | payer OTHER, SELFPAY ==
--- NOTE | 2024-09-15 14:15 | A.OFFVIS_ITS ---
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 We were planning diagnostic right GNB for potential RFA procedure or Sprint PNS trial. Patient was contacted several times in April, May and June 2024 and voicemail messages were left without return of call. 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 He reports pain limits his mobility and daily functioning and disrupts his sleep at night. Ibuprofen and Tylenol has been minimally effective per patient. Patient has gained weight since last visit. Current BMI=75.3. Patient is awaiting insurance approval for Zepbound injections. He has modified his diet and tries to stay active as much as he is able. Denies any recent cough, cold, infection, fever or any other significant changes in medical history since last office visit. PRIOR: Patient is a 43 years old male with history of right knee OA, morbid obesity, ANDREIA/CPAP, left ankle pain, presents today for initial evaluation of right knee pain. He was referred to us by Orthopedics and PCP providers. Patient has significant morbid obesity with BMI>67 and is not surgical candidate. He has received cortisone and Durolane injections with temporary and partial pain relief. Patient is attending at [facility] program for over a year and has made some progress with weight loss (BMI 74.9 in 01/02/23). Patient reports he works at [employer] and has hard time standing, walking, bending or flexing his knees. Patient is constant and negatively affects his daily activities and functioning, work, sleep, mood and social interactions. He reports one time use of tramadol provided by his friend has provided him good pain relief. I have informed patient that our office does not offer opioid prescribing. Patient is interested to undergo diagnostic genicular nerve blocks for potential genicular RFA. Given significant pain and body habitus, he is not able to pursue formal physical therapy. Denies any fever, chills, chest pain, infection, rash, radicular back pain, weakness, bladder or bowel dysfunction or saddle anesthesia. Location: Right knee knee Duration: Chronic pain >1.5 years Characteristics of symptom or complaint: Aching, sore, tiring, cramping, sore, hurting, heavy, stabbing, burning Aggravating or associated factors: Walking, bending, climbing stairs, standing Relieving factors: Tramadol x1, NSAIDs, Tylenol, ice/heat, elevation, rest Treatment: Cortisone and gel injections [facility] Medical History Prediabetes Hypertension Morbid obesity with BMI of 70 and over, adult Obstructive sleep apnea on CPAP Surgical History Hx of carpal tunnel repair Family History Mother No problems noted. Father No problems noted. 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 Morbidly obese. Alert and oriented. Mood and affect appropriate. Follows and participates in conversation appropriately. Respiratory effort is unlabored. No cough. Able to transition from sit to stand unassisted. Ambulates with bilaterally normal heel strike and toe off. Extrem Right lower extremity: knee (Limited ROM due to pain and body habitus.) Details: normal to inspection, tenderness (global anterior knee) Location: of the patella, of the medial joint line and of the lateral joint line and crepitus; no swelling, no ecchymosis, no deformity and no unusual warmth Results Reviewed Results Reviewed: XR KNEE, RIGHT XR KNEE AP STANDING 02/13/23 CLINICAL INFORMATION: Pain. COMPARISON: Radiographs dated 02/03/2023. FINDINGS: Bony mineralization is normal. There is moderately severe asymmetric narrowing of the medial joint space compartment of the right knee. The lateral and patellofemoral joint space compartments are well-maintained. There is tricompartment peripheral osteophyte formation. There is no fracture, dislocation or significant joint effusion. The medial joint space compartment of the left knee is mildly narrowed, and the lateral joint space compartment is well-maintained. There is peripheral osteophyte formation of the lateral and medial joint space compartments of the left knee. There is a mild varus configuration of the right knee. No significant varus or valgus configuration is seen of the left knee. There are soft tissue calcifications suggesting bilateral lower extremity venous insufficiency. IMPRESSION: 1. There is tricompartment osteoarthritic change of the right knee, most pronounced in the medial joint space compartment, where it is moderately severe. 2. There is a mild varus configuration of the right knee. 3. There is moderate osteoarthritic change of the medial joint space compartment of the left knee, and mild osteoarthritic change is seen of the lateral joint space compartment. Assessment & Plan Assessment & Plan (1) Right knee pain: Code(s): M25.561 - Pain in right knee Category: Medical (2) Degenerative arthritis of right knee: Code(s): M17.11 - Unilateral primary osteoarthritis, right knee Category: Medical Qualifiers: Osteoarthritis type: unspecified Qualified Code(s): M17.11 - Unilateral primary osteoarthritis, right knee (3) Morbid obesity with BMI of 60.0-69.9, adult: Code(s): E66.01 - Morbid (severe) obesity due to excess calories; Z68.44 - Body mass index [BMI] 60.0-69.9, adult Category: Medical Plan Proceed with diagnostic right genicular nerve block with local OR and fluoroscopy for potential genicular RFA. We also discussed Sprint PNS trial and therapeutic injections. Expectations, risks and benefits were reviewed again today with patient. Patient is aware he will be contacted to schedule this procedure. Continue lidocaine patch and Ibuprofen prn. Script provided for gabapentin at bedtime. Side effects and precautions were discussed with patient. Continue weight loss, has pending PA for Zepbound injection. Encouraged daily physical activity, adequate hydration, well-balanced diet, avoid pro- inflammatory foods, consider intermittent fasting and Mediterranean diet. All questions and concerns have been answered and patient agreed with the plan. Follow up after injections and sooner as needed. Medications: New gabapentin 300 mg PO BEDTIME 30 caps 0RF pain M17.11 - Unilateral primary osteoarthritis, right knee, M25.561 - Pain in right knee Coding Level of Care Code Est Pt Level 3 (60291) Complex EM visit Add On G2211 Diagnoses Right knee pain M25.561 Osteoarthritis of right knee, unspecified osteoarthritis type M17.11 Osteoarthritis type: unspecified Morbid obesity with BMI of 60.0-69.9, adult E66.01; Z68.44
[2024-09-15 14:19] VITALS: BP 176/81; PULSE 84; O2SAT 99; BMI 75.3
== END 2024-09-15 14:49 | disposition home or self-care (01) ==
PROVIDERS: PCP Internal Medicine; Visit Provider Nurse Practitioner Family
DX: M25.561 Pain in right knee (principal); M17.11 Unilateral primary osteoarthritis, right knee; E66.01 Morbid (severe) obesity due to excess calories; Z68.44 Body mass index [BMI] 60.0-69.9, adult
CPT/HCPCS: 99213

== ENCOUNTER → 2024-09-15 14:12 | Outpatient (BNVA) | payer OTHER, SELFPAY | PROVIDERS: PCP Internal Medicine; Visit Provider Nurse Practitioner Family ==

== ENCOUNTER 2024-09-30 11:05 | Outpatient (REF) | payer OTHER, SELFPAY ==
[2024-09-30 11:29] LABS: MANUAL DIFF FLAG NO
[2024-09-30 11:45] LABS: Basophils Percent Auto 0.2 % (0-2); Eosinophils Absolute Auto 0.2 X10*3/uL (0.0-0.4); Eosinophils Percent Auto 1.9 % (0-4); Hematocrit 48.4 % (42.0-52.0); Hemoglobin 15.6 g/dl (14.0-18.0); Imm Gran Abs Auto 0.04 X10*3/uL (0.00-0.03); Imm Gran Pct Auto 0.5 % (0.0-0.4); Lymphocytes Absolute Auto 2.4 X10*3/uL (1.2-4.9); Lymphocytes Percent Auto 27.7 % (20-40); Mean Corpuscular HGB Conc 32.2 g/dl (31.0-36.0); Mean Corpuscular Hemoglobin 31.3 pg (27.0-33.0); Mean Corpuscular Volume 97.2 fL (80.0-98.0); Mean Platelet Volume 10.6 fL (9.4-12.4); Monocytes Absolute Auto 0.9 X10*3/uL (0.1-1.2); Monocytes Percent Auto 10.3 % (2-11); Neutrophils Absolute Auto 5.2 x10*3/uL (2.0-8.3); Neutrophils Percent Auto 59.4 % (45-73); Platelet Count 206 X10*3/uL (160-400); Red Blood Count 4.98 X10*6/uL (4.60-5.80); Red Cell Distribution Width 13.7 % (11.0-16.0); White Blood Count 8.8 X10*3/uL (4.8-10.8)
[2024-09-30 12:44] LABS: Anion Gap 13 (12-20); TSH reflex Free T4 2.01 uIU/mL (0.32-4.0); Vitamin D 25-OH Total 25.7 ng/mL (>30)
[2024-09-30 12:48] LABS: Alanine Aminotransferase 54 U/L (0-40); Albumin Level 3.9 g/dL (3.5-5.0); Alkaline Phosphatase 70 U/L (39-117); Aspartate Amino Transferase 35 U/L (5-37); Bilirubin Direct 0.2 mg/dL (0.0-0.5); Bilirubin Total 0.5 mg/dL (0.0-1.0); Blood Urea Nitrogen 16 mg/dL (9-16); C Reactive Protein 2.24 mg/dL (< or = 0.50); Calcium 9.1 mg/dL (8.4-10.2); Carbon Dioxide 28 mmol/L (22-29); Chloride 103 mmol/L (96-108); Cholesterol 167 mg/dL (<200); Estimated Glomerular Filt Rate > 60; Glucose Fasting 120 mg/dL (60-99); HDL Cholesterol 35 mg/dL (>40); LDL Cholesterol Calculated 113 mg/dL (<100); Magnesium 1.9 mg/dL (1.6-2.6); Potassium 4.7 mmol/L (3.3-5.1); Sodium 139 mmol/L (135-145); Total Protein 8.3 g/dL (6.5-8.0); Triglycerides 96 mg/dL (<150)
[2024-09-30 12:58] LABS: PSA,Total (Free>4and<10) 0.19 ng/mL (0.00-4.00)
[2024-09-30 13:11] LABS: Vitamin B12 628 pg/mL (200-900)
[2024-10-10 01:09] LABS: Vitamin B1 <6 nmol/L (8-30)
== END 2024-09-30 11:06 | disposition home or self-care (01) ==
LOC: HO.LAB 11:05
PROVIDERS: PCP Physician Assistant Medical; Visit Provider Physician Assistant Medical
DX: Z00.00 Encounter for general adult medical examination without abnormal findings (principal); Z12.5 Encounter for screening for malignant neoplasm of prostate
CPT/HCPCS: 36415; 80053; 80061; 80076; 82248; 82306; 82607; 82746; 83735; 84153; 84425; 84443; 85025; 86140

== ENCOUNTER 2024-10-06 11:04 | Outpatient (AMB) | payer OTHER, SELFPAY ==
--- NOTE | 2024-10-06 11:14 | MHC.OFFVIS ---
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 by: Self / Same As Patient Allergies shrimp Allergy (Mild, Uncoded 10/06/24 11:40) Stomach Upset Medication List - Last Reconciled 10/06/24 by Rachna Loredo PA-C cholecalciferol (vitamin D3) 1,250 mcg PO QWEEK 3 months CPAP (CPAP Machine/Device) As directed losartan 25 mg PO DAILY naproxen 500 mg PO BID PRN tirzepatide (weight loss) (Zepbound) 2.5 mg (0.5 mL) subcut QWEEK PFSH Medical History (Updated 10/06/24 @ 11:49 by Rachna Loredo PA-C) Hyperlipidemia LDL goal <100 Elevated ALT measurement Prediabetes Hypertension Morbid obesity with BMI of 70 and over, adult Obstructive sleep apnea on CPAP Surgical History Hx of carpal tunnel repair Family History Mother No problems noted. Father No problems noted. 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
[2024-10-06 11:16] VITALS: BP 128/70; PULSE 104; TEMP 36.9; O2SAT 95; BMI 74.5
--- NOTE | 2024-10-06 11:20 | MHC.PC.OV ---
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 Required: No Accompanied by: Self / Same As Patient Allergies shrimp Allergy (Mild, Uncoded 10/06/24 11:40) Stomach Upset Medication List - Last Reconciled 10/06/24 by Rachna Loredo PA-C cholecalciferol (vitamin D3) 1,250 mcg PO QWEEK 3 months CPAP (CPAP Machine/Device) As directed losartan 25 mg PO DAILY naproxen 500 mg PO BID PRN tirzepatide (weight loss) (Zepbound) 2.5 mg (0.5 mL) subcut QWEEK Tobacco use date assessed: 10/06/24 Dental Screening Dental Screen Date: 10/06/24 Did you have a dental visit in the last 12 months?: No Did you have a dental problem in the last 6 months where you did not have access to dental care?: No PFSH Medical History (Updated 10/06/24 @ 11:49 by Rachna Loredo PA-C) Hyperlipidemia LDL goal <100 Elevated ALT measurement Prediabetes Hypertension Morbid obesity with BMI of 70 and over, adult Obstructive sleep apnea on CPAP Surgical History Hx of carpal tunnel repair Family History Mother No problems noted. Father No problems noted. 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 1. Little interest or pleasure in doing things: not at all 2. Feeling down, depressed, or hopeless: not at all 3. Trouble falling or staying asleep, or sleeping too much: not at all 4. Feeling tired or having little energy: not at all 5. Poor appetite or overeating: not at all 6. Feeling bad about yourself - or that you are a failure or have let yourself or your family down: not at all 7. Trouble concentrating on things, such as reading the newspaper or watching television: not at all 8. Moving or speaking so slowly that other people could have noticed. Or the opposite - being so fidgety or restless that you have been moving around a lot more than usual: not at all 9. Thoughts that you would be better off or of hurting yourself in some way: not at all Total score: 0 Depression Screening Interpretation: Negative Depression Screening Done: Yes 53336 - PHQ-9 Billing: Yes Source: Developed by Drs. Nik Silvestre, Tia Mariee, Tavares Elliott and colleagues, with an educational anthony from [employer]. Thrive Questionnaire Date Thrive assessed: 10/06/24 I am a: Patient What is your living situation today?: I have a steady place to live Within the past 12 months, did the food you bought not last and you didn't have the money to get more?: Never true Within the past 12 months, did you worry whether your food would run out before you got money to buy more?: Never true Do you have trouble paying for medicines?: No Do you have trouble getting transportation to medical appointments?: No Do you have trouble paying your heating and electricity bill?: No Do you have trouble taking care of your child, family member or friend?: No Do you have trouble with day-to-day activities such as bathing, preparing meals, shopping, managing finances, etc.?: No Are you currently unemployed and looking for a job?: No Are you interested in more education?: No Please select the resources that you would like help with: None Currently or been in a relationship where the following occur: No concerns reported THRIVE Score: 0 AUDIT C Alcohol Use Questionnaire (AUDIT-C) 2. How many drinks containing alcohol do you have on a typical day when you are drinking?: 1 or 2 3. How often do you have six or more drinks on one occasion?: Less than monthly Total Score: 1 Score Reviewed/Action Taken: Yes TONEY-7 AMB Questionnaire TONEY-7 Date TONEY - 7 assessed: 10/06/24 Feeling nervous, anxious, or on edge: 0 = Not at all Not being able to stop or control worryin = Not at all Worrying too much about different things: 0 = Not at all Trouble relaxin = Not at all Being so restless that it is hard to sit still: 0 = Not at all Becoming easily annoyed or irritable: 0 = Not at all Feeling afraid as if something awful might happen: 0 = Not at all Total TONEY-7 score (0-4 normal; 5-9 mild; 10-14 moderate; 15-21 severe): 0 Source: Developed by Drs. Nik Silvestre, Tia Mariee, Tavares Elliott and colleagues, with an educational anthony from [employer]. TONEY-7 Assessment Billing TONEY-7 Assessment Tool: TONEY-7 Assessment 17164 Physical exam (Primary Care) Vital Signs: Last Vital Signs Temp 98.5 F 10/06/24 11:16 Pulse 104 H 10/06/24 11:16 BP 128/70 10/06/24 11:16 Pulse Ox 95 10/06/24 11:16 BMI result Body Mass Index 74.5 Tobacco/Smoking Status: Tobacco use Status Tobacco use date assessed 10/06/24 10/06/24 11:26 Patient Tobacco Use Status Former Tobacco user 10/06/24 11:26 e-Cigarette/Vaping Use Never Used 10/06/24 11:26 PHQ-9: PHQ-9 Score PHQ-9: Total score 0 10/06/24 11:26 Depression Screening Interpretation: Negative Thrive Assessment: Date of Thrive Assessment Date Thrive assessed 10/06/24 10/06/24 11:26 Currently or been in a relationship where the following occur: No concerns reported Coding Level of Care Code Est Pt Level 4 (32604) Complex EM visit Add On G2211 Diagnoses Prediabetes R73.03 Hypertension I10 Morbid obesity with BMI of 70 and over, adult E66.01; Z68.45 Obstructive sleep apnea on CPAP G47.33 Osteoarthritis of right knee, unspecified osteoarthritis type M17.11 Osteoarthritis type: unspecified Elevated ALT measurement R74.01 Hyperlipidemia LDL goal <100 E78.5 Additional Codes TONEY-7 Assessment Billing - TONEY-7 Assessment Tool: TONEY-7 Assessment 78427 ([id number]) PHQ-9 - 29867 - PHQ-9 Billing: Yes ([id number]) Assessment & Plan Assessment & Plan (1) Prediabetes: Code(s): R73.03 - Prediabetes Category: Medical Plan: Patient with prediabetes with an A1c level of 6.0 on 09/08/2024. Currently on Zepbound tolerating well. Will reassess in 3 months. Condition is chronic and stable continue to monitor. (2) Hypertension: Code(s): I10 - Essential (primary) hypertension Category: Medical Plan: Goal <130/80. Blood pressure at goal today. Patient reports he has not picked up the losartan and started to take the blood pressure medication as of yet. I explained to him the importance of taking the blood pressure medication despite having a normal blood pressure today. Patient understands this and will burr picker the losartan 25 mg and start taking it daily. Condition is chronic and stable continue to monitor. (3) Morbid obesity with BMI of 70 and over, adult: Code(s): E66.01 - Morbid (severe) obesity due to excess calories; Z68.45 - Body mass index [BMI] 70 or greater, adult Category: Medical Plan: Patient currently on Zepbound. Tolerating well. No complications at this time. Patient has lost 21 lb since his last visit a month ago. Condition is chronic and stable continue current regimen (4) Obstructive sleep apnea on CPAP: Code(s): G47.33 - Obstructive sleep apnea (adult) (pediatric) Category: Medical Plan: Patient currently on CPAP tolerating well. No complications. Condition is chronic and stable continue to monitor. (5) Degenerative arthritis of right knee: Code(s): M17.11 - Unilateral primary osteoarthritis, right knee Category: Medical Qualifiers: Osteoarthritis type: unspecified Qualified Code(s): M17.11 - Unilateral primary osteoarthritis, right knee Plan: Patient utilizing naproxen 500 mg p.o. b.i.d. as needed. Condition is chronic and stable continue to monitor (6) Elevated ALT measurement: Code(s): R74.01 - Elevation of levels of liver transaminase levels Category: Medical Plan: Patient has an elevated ALT of 54. Abdomen is soft and nontender. Denies any abdominal pain. Will continue to monitor. Condition is chronic and stable (7) Hyperlipidemia LDL goal <100: Code(s): E78.5 - Hyperlipidemia, unspecified Category: Medical Plan: Triglyceride level Goal <150. TC <200. LDL Goal <100. HDL Goal >40. Patient's triglyceride level were 96, total cholesterol 167, LDL 113, HDL 35 on 09/30/2024. Patient will be started on atorvastatin 10 mg at bedtime. Condition is chronic and stable continue to monitor. Plan Plan Patient was informed and verbally consented to the use of an ambient scribe for clinic note documentation during this visit. 1. Essential Hypertension Continue prescribed antihypertensive medication once obtained from the pharmacy. Monitoring of blood pressure readings is advised to ensure medication efficacy. 2. Hyperlipidemia, unspecified Dietary monitoring to enhance HDL levels and reduce LDL cholesterol. Regular lipid panels to measure response to dietary changes. Patient will be started on atorvastatin 10 mg at bedtime. 3. Obesity The patient will continue on Zepbound, which is providing successful weight reduction. Future dose escalation may be considered based on weight monitoring and control over hunger sensations. 4. Prediabetes Regular monitoring of glucose levels, with a possible A1c test in November to assess metabolic control. Lifestyle adaptations are encouraged to manage sugar levels effectively. 5. Slightly Elevated Liver Enzymes Liver function is to be monitored, with imaging to be considered should symptoms arise or enzyme levels increase. 6. Chronic Pain Naproxen usage for pain control on an as-needed basis is to continue, with regular assessment for any side effects. Discussion Notes We reviewed the progress in weight reduction due to Zepbound therapy, with a significant loss highlighting the drug's effectiveness. The patient agreed on monitoring further progress and communicating from [place] to discuss potential dose escalation. We discussed the importance of sustained antihypertensive medication adherence given his current blood pressure status. Lifestyle modification emphasizes dietary changes to manage lipid levels, focusing on foods beneficial for HDL elevation. We agreed on a cautious approach towards chronic pain management with Naproxen. We discussed the slightly elevated liver enzyme levels, monitoring plans, and the absence of symptoms warranting current intervention. Follow-up plans are set for three months unless new symptoms arise. Medications: New atorvastatin 10 mg PO BEDTIME 90 tabs 1RF high cholesterol Patient Instructions: Patient Instructions - Continue Zepbound for weight management; contact us if experiencing abdominal pain. 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 - Monitor your blood sugar levels and maintain dietary modifications. - Increase home consumption of HDL-raising foods like avocados. - Use Naproxen as needed for pain. - Contact our office if experiencing abdominal pain or significant changes in health. - Schedule follow up in three months or sooner if needed. - Send a notification while in [place] if you need assistance or further prescriptions. Scribe Plan - Not visible on output: History of Present Illness The patient is a 43-year-old male presenting for a follow-up regarding obesity and management of chronic conditions. As of this visit, he reports a significant reduction in weight from 539 to 518 pounds within a span of 10 days, believed to be due to the medication Zepbound, which has also helped him manage his appetite more effectively. He is experiencing no adverse effects from the medication and reports improved adherence to a diet low in fried foods. He is being monitored for prediabetes, with a blood sugar reading of 120 mg/dL during this appointment, and a follow-up A1c planned if required in November. Reports of high LDL cholesterol and low HDL cholesterol indicate the need for dietary improvements. While his diet excludes fried foods, his HDL level remains low at 35 mg/dL, suggesting further dietary modifications might be necessary. The patient manages essential hypertension, though he has not taken his prescribed medication recently and plans to collect it today. Chronic pain is present, managed on an as-needed basis with Naproxen. He underwent a previous sleep study with the acquisition of a CPAP apparatus. Routine laboratory investigations revealed a slightly elevated liver enzyme without accompanying abdominal pain and a PSA of 0.19 mg/dL, deemed normal. His lifestyle routine includes preparing to travel, with plans to manage medication while abroad. Follow-up in three months aims to assess further weight loss progression and potential medication adjustments. Social History - Patient is actively engaged in weight management with Zepbound. - He has adapted dietary changes, reducing fried foods and exploring other dietary habits to lower LDL cholesterol. - Plans to travel to [place] and continue medication management during the trip. Review of Systems - Overall: Denies adverse effects from Zepbound. - Gastrointestinal: Denies abdominal pain. Physical Exam Appearance: Alert. Oriented X3. No acute distress. Head: Normal external exam. Normocephalic. Atraumatic. Eyes: Pupils are equal, round, and reactive to light. Extraocular movements intact. Conjunctiva and sclera normal. Eyelids normal. Ears: External auditory canal normal. Tympanic membranes normal. Throat: Pharynx normal. Uvula midline. Moist mucous membranes. Neck: Normal inspection. Neck supple. Full range of motion. No adenopathy. Thyroid Normal. No meningeal signs. No neck mass noted. Cardiovascular: Normal heart rate and rhythm. Heart sound normal. No murmurs noted. Pulses normal throughout. Respiratory: No respiratory distress. Painless inspiration. Breath sounds normal. No wheezes/rales/rhonchi noted. Chest nontender. No accessory muscle usage noted or decreased air movement noted. Abdomen: Soft and nontender. Bowel sounds normal in all 4 quadrants. No distention noted. No organomegaly noted. No visible injury noted. Back: No costovertebral angle tenderness. Full range of motion noted. Skin: Skin warm and dry. Normal skin color. Normal skin turgor. No rashes/lesions/lacerations noted. Extremities: No lower extremity edema. Extremities exhibit normal range of motion. Extremities nontender. Neuro: Oriented X 3. No motor deficit. No sensory deficit. Reflexes normal. Results - Labs: Prediabetic status, blood sugar at 120 mg/dL; LDL cholesterol 113 mg/dL; HDL cholesterol 35 mg/dL; slightly elevated liver enzyme; PSA 0.19 mg/dL.
== END 2024-10-06 11:42 | disposition home or self-care (01) ==
LOC: HO.HMCH 11:05
PROVIDERS: PCP Internal Medicine; Visit Provider Physician Assistant Medical
DX: R73.03 Prediabetes (principal); I10 Essential (primary) hypertension; E66.01 Morbid (severe) obesity due to excess calories; Z68.45 Body mass index [BMI] 70 or greater, adult; G47.33 Obstructive sleep apnea (adult) (pediatric); M17.11 Unilateral primary osteoarthritis, right knee; R74.01 Elevation of levels of liver transaminase levels; E78.5 Hyperlipidemia, unspecified

== ENCOUNTER → 2024-10-06 11:04 | Outpatient (BNVA) | payer OTHER, SELFPAY | PROVIDERS: PCP Internal Medicine; Visit Provider Physician Assistant Medical | DX: R73.03 Prediabetes (principal); I10 Essential (primary) hypertension; E66.01 Morbid (severe) obesity due to excess calories; Z68.45 Body mass index [BMI] 70 or greater, adult; G47.33 Obstructive sleep apnea (adult) (pediatric); M17.11 Unilateral primary osteoarthritis, right knee; Z99.89 Dependence on other enabling machines and devices; R74.01 Elevation of levels of liver transaminase levels; E78.5 Hyperlipidemia, unspecified | CPT/HCPCS: 96127 ==

== ENCOUNTER 2024-12-22 15:33 | Outpatient (AMB) | payer OTHER, SELFPAY ==
--- NOTE | 2024-12-22 15:34 | MHC.OFFVIS ---
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 The condition has been longstanding and worsened over time, with interventions such as cortisone and gel injections being ineffective. The patient reports significant weight loss, from 525 lbs in August 2024 to 482 lbs currently, aiming to alleviate symptoms. His current BMI is 69.2, and he has recently joined a gym to further facilitate weight reduction and reports increased energy levels. Right knee pain significantly impacts his daily activities, causing fatigue with minimal physical exertion such as stair climbing. Insurance challenges prevent further intervention, including genicular radiofrequency ablation, as coverage was denied due to a high BMI. The patient takes ibuprofen for severe pain, reporting an 8/10 pain intensity. PRIOR: Patient presents today for follow up for persistent right knee pain due to arthritis. We were planning diagnostic right GNB for potential RFA procedure or Sprint PNS trial. Patient was contacted several times in April, May and June 2024 and voicemail messages were left without return of call. 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 He reports pain limits his mobility and daily functioning and disrupts his sleep at night. Ibuprofen and Tylenol has been minimally effective per patient. Patient has gained weight since last visit. Current BMI=75.3. Patient is awaiting insurance approval for Zepbound injections. He has modified his diet and tries to stay active as much as he is able. Denies any recent cough, cold, infection, fever or any other significant changes in medical history since last office visit. PRIOR: Patient is a 43 years old male with history of right knee OA, morbid obesity, ANDREIA/CPAP, left ankle pain, presents today for initial evaluation of right knee pain. He was referred to us by Orthopedics and PCP providers. Patient has significant morbid obesity with BMI>67 and is not surgical candidate. He has received cortisone and Durolane injections with temporary and partial pain relief. Patient is attending at [facility] program for over a year and has made some progress with weight loss (BMI 74.9 in 01/02/23). Patient reports he works at [employer] and has hard time standing, walking, bending or flexing his knees. Patient is constant and negatively affects his daily activities and functioning, work, sleep, mood and social interactions. He reports one time use of tramadol provided by his friend has provided him good pain relief. I have informed patient that our office does not offer opioid prescribing. Patient is interested to undergo diagnostic genicular nerve blocks for potential genicular RFA. Given significant pain and body habitus, he is not able to pursue formal physical therapy. Denies any fever, chills, chest pain, infection, rash, radicular back pain, weakness, bladder or bowel dysfunction or saddle anesthesia. Location: Right knee knee Duration: Chronic pain >1.5 years Characteristics of symptom or complaint: Aching, sore, tiring, cramping, sore, hurting, heavy, stabbing, burning Aggravating or associated factors: Walking, bending, climbing stairs, standing Relieving factors: Tramadol x1, NSAIDs, Tylenol, ice/heat, elevation, rest Treatment: Cortisone and gel injections PFSH Medical History Hyperlipidemia LDL goal <100 Elevated ALT measurement Prediabetes Hypertension Morbid obesity with BMI of 70 and over, adult Obstructive sleep apnea on CPAP Surgical History Hx of carpal tunnel repair Family History Mother No problems noted. Father No problems noted. 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 Cognitive needs: No Hearing needs: No Vision needs: Yes (Glasses) Review of Systems Const Details: - Musculoskeletal: Reports right knee pain affecting daily life - General: Denies fatigue post-weight loss, more energy - Respiratory: Denies shortness of breath since weight loss - Neurological: Denies any neurological symptoms All systems reviewed & are unremarkable except as noted in HPI and below Physical Exam Vital Signs: Last Vital Signs Pulse 93 12/22/24 15:38 BP 151/69 H 12/22/24 15:38 Pulse Ox 100 12/22/24 15:38 Oxygen Delivery Method Room Air 12/22/24 15:38 BMI result Body Mass Index 69.2 General: Appears afebrile. Morbidly obese. Alert and oriented. Mood and affect appropriate. Follows and participates in conversation appropriately. Respiratory effort is unlabored. No cough. Able to transition from sit to stand unassisted. Ambulates with bilaterally normal heel strike and toe off. Extrem Right lower extremity: knee (Limited ROM due to pain and body habitus.) Details: normal to inspection, tenderness (global anterior knee) Location: of the patella, of the medial joint line and of the lateral joint line and crepitus; no swelling, no ecchymosis, no deformity and no unusual warmth Results Reviewed Results Reviewed: XR KNEE, RIGHT XR KNEE AP STANDING 02/13/23 CLINICAL INFORMATION: Pain. COMPARISON: Radiographs dated 02/03/2023. FINDINGS: Bony mineralization is normal. There is moderately severe asymmetric narrowing of the medial joint space compartment of the right knee. The lateral and patellofemoral joint space compartments are well-maintained. There is tricompartment peripheral osteophyte formation. There is no fracture, dislocation or significant joint effusion. The medial joint space compartment of the left knee is mildly narrowed, and the lateral joint space compartment is well-maintained. There is peripheral osteophyte formation of the lateral and medial joint space compartments of the left knee. There is a mild varus configuration of the right knee. No significant varus or valgus configuration is seen of the left knee. There are soft tissue calcifications suggesting bilateral lower extremity venous insufficiency. IMPRESSION: 1. There is tricompartment osteoarthritic change of the right knee, most pronounced in the medial joint space compartment, where it is moderately severe. 2. There is a mild varus configuration of the right knee. 3. There is moderate osteoarthritic change of the medial joint space compartment of the left knee, and mild osteoarthritic change is seen of the lateral joint space compartment. Assessment & Plan Assessment & Plan (1) Right knee pain: Code(s): M25.561 - Pain in right knee Category: Medical (2) Degenerative arthritis of right knee: Code(s): M17.11 - Unilateral primary osteoarthritis, right knee Category: Medical Qualifiers: Osteoarthritis type: unspecified Qualified Code(s): M17.11 - Unilateral primary osteoarthritis, right knee (3) Morbid obesity with BMI of 60.0-69.9, adult: Code(s): E66.01 - Morbid (severe) obesity due to excess calories; Z68.44 - Body mass index [BMI] 60.0-69.9, adult Category: Medical Plan Due to insurance barriers for proposed treatments like genicular radiofrequency ablation necessitate trying to negotiate coverage or pursue diagnostic nerve block approval for Sprint PNS trial as patient continues with weight optimization. Schedule diagnostic right saphenous nerve block with local OR and fluoroscopy/US for potential Sprint PNS trial. Expectations, risks and benefits were reviewed again today with patient. Patient is aware he will be contacted to schedule this procedure. Patient continues to loose weight with dietary changes, Zepbound injections and recently joining gym. His BMI has decreased from >75 to 69.2 for the past 3-4 months. All questions and concerns have been answered and patient agreed with the plan. Follow up after injections and sooner as needed. Patient was informed and verbally consented to the use of an ambient scribe for clinic note documentation during this visit. Coding Level of Care Code Est Pt Level 4 (82561) Complex EM visit Add On G2211 Diagnoses Right knee pain M25.561 Osteoarthritis of right knee, unspecified osteoarthritis type M17.11 Osteoarthritis type: unspecified Morbid obesity with BMI of 60.0-69.9, adult E66.01; Z68.44
[2024-12-22 15:38] VITALS: BP 151/69; PULSE 93; O2SAT 100; BMI 69.2
== END 2024-12-22 15:51 | disposition home or self-care (01) ==
LOC: HO.PMC 15:33
PROVIDERS: PCP Internal Medicine; Visit Provider Nurse Practitioner Family
DX: M25.561 Pain in right knee (principal); M17.11 Unilateral primary osteoarthritis, right knee; E66.01 Morbid (severe) obesity due to excess calories; Z68.44 Body mass index [BMI] 60.0-69.9, adult
CPT/HCPCS: 99214

== ENCOUNTER 2025-01-06 11:56 | Day surgery (SDC) | payer OTHER, SELFPAY ==
[2025-01-06 12:23] VITALS: BMI 69.1
[2025-01-06 12:42] VITALS: BP 119/68; PULSE 69; RESP 16; TEMP 36.1; O2SAT 93
--- NOTE | 2025-01-06 13:32 | MHC.SHP ---
Pre-Procedural Eval Section A - 24 Hr Update-Section A only Date of Service: 01/06/25 The patient is an INPATIENT: No Changes since office visit: Yes Patient answered all questions The patient has been examined within 24 hours of the surgical procedure. The History & Physical has been completed within 30 days and I have reviewed it.: No Section B - Complete if H&P > 30 days Chief Complaint: Unilateral primary osteoarthritis, right knee pain Details of Present Illness: Osteoarthritis right knee pain Relevant Family History (Specify if Yes): No Allergies: Allergies Allergy/AdvReac Type Severity Reaction Status Date / Time shrimp Allergy Mild Stomach Uncoded 10/06/24 11:40 Upset Review of Systems Sugical H&P ROS: Negative: Cardiovascular, Neurological, Psychiatric, Hem-Onc, Allergic/Immunologic, Gastrointestinal, Genitourinary, Integumentary, Endocrine and Eyes/Ears/Nose/Throat and Yes, Specify: Constitution (severe morbid obesity), Respiratory (Obstructive sleep apnea) and Musculoskeletal (Knee osteoarthritis) Exam Surgical H&P Exam: Normal: HEENT, Normal: Heart, Normal: Lungs, Normal: Extremities, Normal: Abdomen, Normal: Skin and Normal: Neurological Plan I have reviewed the history and physical and performed a pertinent physical examination on my patient. No changes have occurred unless specified. I will perform ultrasound-guided saphenous nerve block. Time Spent With Patient Time: Total time managing care of this patient today ____ minutes.
--- NOTE | 2025-01-06 14:27 | PM.OP ---
Brief Operative Note Date of Service: 01/06/25 Pre-op diagnosis: Right knee osteoarthritis right knee pain Post-op diagnosis: same Procedure: Ultrasound-guided saphenous nerve block. Surgeon: Raffaele Shrestha MD Was an Consulting Practice Director used for this Procedure?: No Estimated blood loss (mL): 0 Condition: stable Disposition: PACU
[2025-01-06 14:29] VITALS: BP 116/64; PULSE 70; RESP 16; TEMP 36.6; O2SAT 97
--- NOTE | 2025-01-06 14:29 | W.PM.OPN ---
Operative Note Operative Note Date of Service: 01/06/25 Narrative: Ultrasound-guided right saphenous nerve block. The patient came to the operating room and was positioned supine on the stretcher. The pannus of this patient was removed from the area of the operation and contralaterally taped to open right groin to the patient. Sterilely draped ultrasound probe was brought to on the operating field and picture of the femoral artery and femoral nerve were demonstrated on the screen. Sliding alongside the adductor canal saphenous nerve was detected. The 22 gauge 10 cm echo stim needle was inserted extra anatomically through the skin and advanced to were the nerve. I would need to advance the entire length of the needle into the subcutaneous tissues and under the fascia of the patient to reach the desired location. The injection of the normal saline demonstrated spread of the normal saline vicinity of the nerve. Aspiration was negative. After that injection of the 10 cc of the ropivacaine 0.5% was slowly performed with frequent aspirations. Upon completion of the injection needle was removed sterile Band-Aid was applied. The patient tolerated the procedure well. He was taken outside of the operating room to recovery room where he recovered uneventfully.
== END 2025-01-06 14:48 | disposition home or self-care (01) ==
PROVIDERS: PCP Physician Assistant Medical; Visit Provider Anesthesiology
PROC: (CPT 64447; principal; 2025-01-06 13:40)
DX: M25.561 Pain in right knee (principal); M17.11 Unilateral primary osteoarthritis, right knee; G89.29 Other chronic pain; E66.01 Morbid (severe) obesity due to excess calories; Z68.44 Body mass index [BMI] 60.0-69.9, adult; R26.2 Difficulty in walking, not elsewhere classified; I10 Essential (primary) hypertension; E78.5 Hyperlipidemia, unspecified; R73.03 Prediabetes; R74.01 Elevation of levels of liver transaminase levels; G47.33 Obstructive sleep apnea (adult) (pediatric); Z79.1 Long term (current) use of non-steroidal anti-inflammatories (NSAID); Z79.85 Long-term (current) use of injectable non-insulin antidiabetic drugs; Z99.89 Dependence on other enabling machines and devices; Z87.891 Personal history of nicotine dependence
CPT/HCPCS: 64447; J2795

== ENCOUNTER → 2025-01-06 11:56 | Outpatient (BNV) | payer OTHER, SELFPAY | PROVIDERS: PCP Physician Assistant Medical; Visit Provider Anesthesiology | DX: M17.11 Unilateral primary osteoarthritis, right knee (principal) | CPT/HCPCS: 64447 ==

== ENCOUNTER 2025-01-12 14:23 | Outpatient (AMB) | payer OTHER, SELFPAY ==
--- NOTE | 2025-01-12 14:24 | MHC.OFFVIS ---
Vital Signs 01/12/25 14:28 Height 5 ft 10 in Weight 474 lb 4 oz BMI 68.0 BP 133/72 Blood Pressure Location Rt brachial Position Sitting Pulse 89 Pulse Source Pulse Oximeter Pulse Oximetry (%) 99 Oxygen Delivery Method Room Air Intake Visit Reasons: S/p (R) Dx Saphenous Nerve Block 01/06/25 Intake Note: Pain today 0/10 Relationship Mgr Required: No Accompanied by: Self / Same As Patient Allergies shrimp Allergy (Unknown, Verified 01/12/25 14:30) Stomach Upset HPI Comments Details: The patient is a 44-year-old male presenting 1 week status post right diagnostic saphenous nerve block at adductor canal on 01/06/[address] Shrestha. The pain was initially severe, reaching a level of 10, but has decreased significantly following a saphenous nerve block. Currently, the patient reports pain levels fluctuating between 0 and 2, particularly when walking long distances at work. The patient has a history of obesity, with a weight of 525 pounds in August, which has decreased to 474 pounds as of the current visit. The patient has been actively losing weight through weight loss injections, diet and exercise, with a goal to reach a BMI of less than 40 to qualify for further interventions. Past Procedures: 01/06/25: Right diagnostic saphenous nerve block at adductor canal- 80-100% pain relief for >6 days PRIOR: The patient is a 44-year-old male presenting with right knee pain attributed to osteoarthritis. The condition has been longstanding and worsened over time, with interventions such as cortisone and gel injections being ineffective. The patient reports significant weight loss, from 525 lbs in August 2024 to 482 lbs currently, aiming to alleviate symptoms. His current BMI is 69.2, and he has recently joined a gym to further facilitate weight reduction and reports increased energy levels. Right knee pain significantly impacts his daily activities, causing fatigue with minimal physical exertion such as stair climbing. Insurance challenges prevent further intervention, including genicular radiofrequency ablation, as coverage was denied due to a high BMI. The patient takes ibuprofen for severe pain, reporting an 8/10 pain intensity. PRIOR: Patient presents today for follow up for persistent right knee pain due to arthritis. We were planning diagnostic right GNB for potential RFA procedure or Sprint PNS trial. Patient was contacted several times in April, May and June 2024 and voicemail messages were left without return of call. Patient reports he works for [employer] facility in [place] and is not always able to picker feeder phone at work. He reports pain limits his mobility and daily functioning and disrupts his sleep at night. Ibuprofen and Tylenol has been minimally effective per patient. Patient has gained weight since last visit. Current BMI=75.3. Patient is awaiting insurance approval for Zepbound injections. He has modified his diet and tries to stay active as much as he is able. Denies any recent cough, cold, infection, fever or any other significant changes in medical history since last office visit. PRIOR: Patient is a 43 years old male with history of right knee OA, morbid obesity, ANDREIA/CPAP, left ankle pain, presents today for initial evaluation of right knee pain. He was referred to us by Orthopedics and PCP providers. Patient has significant morbid obesity with BMI>67 and is not surgical candidate. He has received cortisone and Durolane injections with temporary and partial pain relief. Patient is [place] [facility] for over a year and has made some progress with weight loss (BMI 74.9 in 01/02/23). Patient reports he works at [employer] and has hard time standing, walking, bending or flexing his knees. Patient is constant and negatively affects his daily activities and functioning, work, sleep, mood and social interactions. He reports one time use of tramadol provided by his friend has provided him good pain relief. I have informed patient that our office does not offer opioid prescribing. Patient is interested to undergo diagnostic genicular nerve blocks for potential genicular RFA. Given significant pain and body habitus, he is not able to pursue formal physical therapy. Denies any fever, chills, chest pain, infection, rash, radicular back pain, weakness, bladder or bowel dysfunction or saddle anesthesia. Location: Right knee knee Duration: Chronic pain >1.5 years Characteristics of symptom or complaint: Aching, sore, tiring, cramping, sore, hurting, heavy, stabbing, burning Aggravating or associated factors: Walking, bending, climbing stairs, standing Relieving factors: Tramadol x1, NSAIDs, Tylenol, ice/heat, elevation, rest Treatment: Cortisone and gel injections [facility] Medical History Hyperlipidemia LDL goal <100 Elevated ALT measurement Prediabetes Hypertension Morbid obesity with BMI of 70 and over, adult Obstructive sleep apnea on CPAP Surgical History Hx of carpal tunnel repair Family History Mother No problems noted. Father No problems noted. Social History Housing: Apartment Alcohol intake: current Alcohol intake frequency: holidays/special occasions only Patient Tobacco Use Status: Former Tobacco user Cigarettes Per Day: 9 e-Cigarette/Vaping Use: Never Used Second Hand Smoke Exposure: Yes service: No Current occupational status: employed Current occupation: [employer] Cognitive needs: No Hearing needs: No Vision needs: Yes (Glasses) Review of Systems Const All systems reviewed & are unremarkable except as noted in HPI and below Physical Exam Vital Signs: Last Vital Signs Pulse 89 01/12/25 14:28 BP 133/72 01/12/25 14:28 Pulse Ox 99 01/12/25 14:28 Oxygen Delivery Method Room Air 01/12/25 14:28 BMI result Body Mass Index 68.0 General: Appears afebrile. Morbidly obese. Alert and oriented. Mood and affect appropriate. Follows and participates in conversation appropriately. Respiratory effort is unlabored. No cough. Able to transition from sit to stand unassisted. Ambulates with bilaterally normal heel strike and toe off. Extrem General: Yes capillary refill normal, Yes no clubbing, cyanosis or edema and Yes no calf tenderness Right lower extremity: knee Details: normal to inspection, normal ROM and crepitus; no tenderness, no swelling, no ecchymosis and no unusual warmth Results Reviewed Results Reviewed: XR KNEE, RIGHT XR KNEE AP STANDING 02/13/23 CLINICAL INFORMATION: Pain. COMPARISON: Radiographs dated 02/03/2023. FINDINGS: Bony mineralization is normal. There is moderately severe asymmetric narrowing of the medial joint space compartment of the right knee. The lateral and patellofemoral joint space compartments are well-maintained. There is tricompartment peripheral osteophyte formation. There is no fracture, dislocation or significant joint effusion. The medial joint space compartment of the left knee is mildly narrowed, and the lateral joint space compartment is well-maintained. There is peripheral osteophyte formation of the lateral and medial joint space compartments of the left knee. There is a mild varus configuration of the right knee. No significant varus or valgus configuration is seen of the left knee. There are soft tissue calcifications suggesting bilateral lower extremity venous insufficiency. IMPRESSION: 1. There is tricompartment osteoarthritic change of the right knee, most pronounced in the medial joint space compartment, where it is moderately severe. 2. There is a mild varus configuration of the right knee. 3. There is moderate osteoarthritic change of the medial joint space compartment of the left knee, and mild osteoarthritic change is seen of the lateral joint space compartment. Assessment & Plan Assessment & Plan (1) Right knee pain: Code(s): M25.561 - Pain in right knee Category: Medical (2) Degenerative arthritis of right knee: Code(s): M17.11 - Unilateral primary osteoarthritis, right knee Category: Medical Qualifiers: Osteoarthritis type: unspecified Qualified Code(s): M17.11 - Unilateral primary osteoarthritis, right knee (3) Morbid obesity with BMI of 60.0-69.9, adult: Code(s): E66.01 - Morbid (severe) obesity due to excess calories; Z68.44 - Body mass index [BMI] 60.0-69.9, adult Category: Medical Plan Patient is 1 week status post right diagnostic saphenous nerve block at adductor canal this ultrasound guidance with ongoing 80-100% pain relief significant improvement his daily functioning, mobility and sleep. The plan involves continuing weight loss efforts to achieve a BMI of less than 40, which is necessary for further interventions such as Sprint peripheral nerve stimulator. If insurance denies the request for the peripheral nerve stimulator due to BMI, the patient will continue with weight loss and consider cortisone or gel injections as interim measures. The patient is advised to maintain a moderate pace of weight loss through diet and exercise, and follow up with the clinician to reassess eligibility for further interventions. Patient continues to loose weight with dietary changes, Zepbound injections and exercises through local gym. His BMI has decreased from >75 to 68 for the past 4 months. He considers surgical weight loss options once he reaches 100 lbs weight loss. All questions and concerns have been answered and patient agreed with the plan. Follow up after injections and sooner as needed. Patient was informed and verbally consented to the use of an ambient scribe for clinic note documentation during this visit. Coding Level of Care Code Est Pt Level 3 (27010) Complex EM visit Add On G2211 Diagnoses Right knee pain M25.561 Osteoarthritis of right knee, unspecified osteoarthritis type M17.11 Osteoarthritis type: unspecified Morbid obesity with BMI of 60.0-69.9, adult E66.01; Z68.44
[2025-01-12 14:28] VITALS: BP 133/72; PULSE 89; O2SAT 99; BMI 68.0
== END 2025-01-12 14:47 | disposition home or self-care (01) ==
LOC: HO.PMC 14:23
PROVIDERS: PCP Internal Medicine; Visit Provider Nurse Practitioner Family
DX: M25.561 Pain in right knee (principal); M17.11 Unilateral primary osteoarthritis, right knee; E66.01 Morbid (severe) obesity due to excess calories; Z68.44 Body mass index [BMI] 60.0-69.9, adult
CPT/HCPCS: 99213

== ENCOUNTER 2025-02-08 08:27 | Outpatient (AMB) | payer OTHER, SELFPAY ==
--- OUTSIDE RECORDS SUMMARY | 2025-02-08 08:42 | XMS_ITS ---
Author Organization Unknown [facility] Encounter Performer Location Date Diagnosis Diagnosis Status Outpatient [address] [address] [id number] [facility] *Note: Encounters from your own facility or health system may be excluded. Allergies, Adverse Reactions, Alerts Allergen Type Severity Identification Date Medications Name Date Quantity Days Supplied GPI Number
[2025-02-08 08:52] VITALS: BP 135/74; PULSE 91; RESP 20; O2SAT 98
--- NOTE | 2025-02-08 08:52 | A.OFFVIS_ITS ---
Vital Signs 02/08/25 08:52 Weight 466 lb BP 135/74 Blood Pressure Location Lt brachial Position Sitting Respiration 20 Pulse 91 Pulse Source Pulse Oximeter Pulse Oximetry (%) 98 Oxygen Delivery Method Room Air Intake Visit Reasons: Left Knee Steroid Inj. Per Maribel [employer] Required: No Allergies shrimp Allergy (Unknown, Verified 01/12/25 14:30) Stomach Upset PFSH Medical History Hyperlipidemia LDL goal <100 Elevated ALT measurement Prediabetes Hypertension Morbid obesity with BMI of 70 and over, adult Obstructive sleep apnea on CPAP Surgical History Hx of carpal tunnel repair Family History Mother No problems noted. Father No problems noted. 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 Cognitive needs: No Hearing needs: No Vision needs: Yes (Glasses) Physical Exam Vital Signs: Last Vital Signs Pulse 91 02/08/25 08:52 Resp 20 02/08/25 08:52 BP 135/74 02/08/25 08:52 Pulse Ox 98 02/08/25 08:52 Oxygen Delivery Method Room Air 02/08/25 08:52 Office Procedures AMB Joint Injection/Aspiration Joint Injection/Aspiration Primary Site: right knee Prep: site was prepped using aseptic technique and injection warnings given Injected: 40 mg of and Kenalog Approach Used: anteromedial Procedure: The patient tolerated the procedure well and there was some relief with the local anesthesia Coding 78713 - Large joint Procedure code (CPT) selection complete Office Meds Kenalog 40 mg/mL suspension for injection Performing Provider: Raffaele Shrestha MD Performing Location: [facility] Administered by: Raffaele Shrestha MD on 02/08/25 08:55 Dose Route Admin Location Dispensed Lot Number Expiration Date [facility] [employer] 40 mg intra-articular right knee 1 mL [id number] 06/18/26 Total Dispensed Waste 1 mL 0 % Assessment & Plan Assessment & Plan (1) Degenerative arthritis of right knee: Code(s): M17.11 - Unilateral primary osteoarthritis, right knee Category: Medical Qualifiers: Osteoarthritis type: unspecified Qualified Code(s): M17.11 - Unilateral primary osteoarthritis, right knee Plan The patient has massive knee, the injection was technically difficult, the patient was informed about one option to perform the knee injection in 3 months with fluoroscopy guidance and longer needle. Orders: Orders AMB Joint Injection/Aspiration Today M17.11 - Unilateral primary osteoarthritis, right knee Coding Level of Care Code Procedure Only Diagnoses Osteoarthritis of right knee, unspecified osteoarthritis type M17.11 Osteoarthritis type: unspecified CPT Codes Coding - 60779 Large joint: 52224 - Large joint ([id number])
== END 2025-02-08 08:51 | disposition home or self-care (01) ==
LOC: HO.PMC 08:28
PROVIDERS: PCP Internal Medicine; Visit Provider Anesthesiology
DX: M17.11 Unilateral primary osteoarthritis, right knee (principal)
CPT/HCPCS: 20610

== ENCOUNTER → 2025-02-08 08:27 | Outpatient (BNVA) | payer OTHER, SELFPAY | PROVIDERS: PCP Internal Medicine; Visit Provider Anesthesiology | DX: M17.11 Unilateral primary osteoarthritis, right knee (principal) | CPT/HCPCS: 20610; J3300 ==

== ENCOUNTER 2025-03-02 10:00 | Outpatient (REF) | payer OTHER, SELFPAY ==
[2025-03-02 10:13] LABS: MANUAL DIFF FLAG NO
[2025-03-02 10:41] LABS: Hematocrit 44.6 % (42.0-52.0); Hemoglobin 14.9 g/dl (14.0-18.0); Imm Gran Abs Auto 0.03 X10*3/uL (0.00-0.03); Imm Gran Pct Auto 0.3 % (0.0-0.4); Lymphocytes Absolute Auto 2.2 X10*3/uL (1.2-4.9); Mean Corpuscular HGB Conc 33.4 g/dl (31.0-36.0); Mean Corpuscular Hemoglobin 31.0 pg (27.0-33.0); Mean Corpuscular Volume 92.9 fL (80.0-98.0); NRBC Abs Auto 0.000 X10*3/uL (0.0-0.012); NRBC Pct Auto 0.0 /100WBC (0.0-0.2); Platelet Count 204 X10*3/uL (160-400); Red Blood Count 4.80 X10*6/uL (4.60-5.80); White Blood Count 8.8 X10*3/uL (4.8-10.8)
--- OUTSIDE RECORDS SUMMARY | 2025-03-02 10:41 | XMS_ITS ---
Author Organization Unknown [facility]OUN[facility] Encounter Performer Location Date Diagnosis Diagnosis Status Outpatient [address] [address] [id number] [facility] *Note: Encounters from your own facility or health system may be excluded. Allergies, Adverse Reactions, Alerts Allergen Type Severity Identification Date Medications Name Date Quantity Days Supplied GPI Number
[2025-03-02 10:48] LABS: Hemoglobin A1C 131.2092 umol/L; Total Hemoglobin (HGBA1C) 3896.3514 umol/L
[2025-03-02 11:14] LABS: Alanine Aminotransferase 55 U/L (0-40); Albumin Level 3.9 g/dL (3.5-5.0); Alkaline Phosphatase 71 U/L (39-117); Anion Gap 11 (12-20); Aspartate Amino Transferase 35 U/L (5-37); Blood Urea Nitrogen 15 mg/dL (9-16); Calcium 8.8 mg/dL (8.4-10.2); Carbon Dioxide 24 mmol/L (22-29); Chloride 106 mmol/L (96-108); Cholesterol 105 mg/dL (<200); Estimated Glomerular Filt Rate > 60; HDL Cholesterol 33 mg/dL (>40); Magnesium 2.0 mg/dL (1.6-2.6); Potassium 4.1 mmol/L (3.3-5.1); Sodium 137 mmol/L (135-145); Total Protein 7.4 g/dL (6.5-8.0); Triglycerides 75 mg/dL (<150)
[2025-03-02 11:24] LABS: PSA,Total (Free>4and<10) 0.28 ng/mL (0.00-4.00)
[2025-03-02 11:37] LABS: Folate 11.2 ng/mL (> or = 4.0); Vitamin B12 537 pg/mL (200-900)
[2025-03-09 09:02] LABS: Testosterone, Free 54.6 pg/mL (35.0-155.0)
== END 2025-03-02 10:01 | disposition home or self-care (01) ==
LOC: HO.LAB 10:00
PROVIDERS: Visit Provider Physician Assistant Medical
DX: Z00.00 Encounter for general adult medical examination without abnormal findings (principal); Z13.6 Encounter for screening for cardiovascular disorders; Z12.5 Encounter for screening for malignant neoplasm of prostate; Z13.1 Encounter for screening for diabetes mellitus; Z13.29 Encounter for screening for other suspected endocrine disorder
CPT/HCPCS: 36415; 80053; 80061; 80076; 82248; 82306; 82607; 82627; 82642; 82746; 83036; 83735; 84153; 84402; 84403; 84443; 85025; 86140

== ENCOUNTER 2025-03-10 10:58 | Outpatient (AMB) | payer OTHER, SELFPAY ==
--- NOTE | 2025-03-10 10:59 | A.OFFPC_ITS ---
Vital Signs 03/10/25 11:04 Height 5 ft 7.72 in Weight 458 lb 2 oz BMI 70.2 BP 103/56 L Blood Pressure Location Rt femoral Position Sitting Respiration 16 Pulse 96 Pulse Source Pulse Oximeter Temp 97.9 F Temp Source Temporal Artery Scan Pulse Oximetry (%) 97 Oxygen Delivery Method Room Air Intake Visit Reasons: PE/[place] Transfer [employer] Required: No Accompanied by: Self / Same As Patient Allergies shrimp Allergy (Unknown, Verified 03/10/25 13:11) Stomach Upset Medication List - Last Reconciled 03/10/25 by Rachna Loredo PA-C atorvastatin 10 mg PO BEDTIME azithromycin For 250 mg dose pack: take 500 mg today (day 1), then 250 mg for 4 days (days 2-5) PO cholecalciferol (vitamin D3) 1,250 mcg PO QWEEK 3 months CPAP (CPAP Machine/Device) As directed losartan 25 mg PO DAILY naproxen 500 mg PO BID PRN thiamine mononitrate (vit B1) 100 mg PO DAILY tirzepatide (weight loss) 15 mg (0.5 mL) subcut QWEEK Tobacco use date assessed: 10/06/24 Dental Screening Dental Screen Date: 10/06/24 Did you have a dental visit in the last 12 months?: No Did you have a dental problem in the last 6 months where you did not have access to dental care?: No Was dental information given to patient?: No HPI PE/[place] Transfer HPI Details The patient is a 44-year-old male presenting for an annual physical examination and management of chronic conditions. The patient has a history of hypertension, currently managed with losartan, which he has been taking regularly. Although due to low blood pressure readings at home he has been advised to monitor his blood pressure and discontinue losartan if readings remain below 120/80 mmHg. The patient is on atorvastatin for hyperlipidemia, with recent blood work showing significant improvement in cholesterol levels, including a reduction in LDL from 113 to 57 mg/dL. He has been advised to continue the medication for now, with a potential reevaluation in the future. The patient has a history of obstructive sleep apnea, managed with a CPAP machine. The patient has experienced significant weight loss, losing 81 pounds since August, attributed to lifestyle changes and medication. He reports improved energy levels and no longer experiences fatigue with minimal exertion. Recent lab results indicated elevated liver enzymes, with ALT levels slightly above normal, potentially due to medication or dietary factors. The patient reports throat pain with redness observed during examination, but no white spots were noted. 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 - Nutrition: Following a low carbohydrat e diet, reports improved bowel movements with dietary adjustments. - Weight Management: Significant weight loss of 81 pounds since August, attributed to lifestyle changes and medication. [facility] Medical History (Updated 03/10/25 @ 13:23 by Rachna Loredo PA-C) Throat pain Elevated liver enzymes Annual physical exam Hyperlipidemia LDL goal <100 Elevated ALT measurement Prediabetes Hypertension Morbid obesity with BMI of 70 and over, adult Obstructive sleep apnea on CPAP Surgical History Hx of carpal tunnel repair Family History Mother No problems noted. Father No problems noted. Social History Housing: Apartment Alcohol intake: current Alcohol intake frequency: holidays/special occasions only Patient Tobacco Use Status: Former Tobacco user Cigarettes Per Day: 6 e-Cigarette/Vaping Use: Never Used Second Hand Smoke Exposure: Yes service: No Current occupational status: employed Cognitive needs: No Hearing needs: No Vision needs: Yes (rx glasses/ contacts) Questionnaire PHQ-9 Over the last 2 weeks, how often have you been bothered by any of the following problems? 1. Little interest or pleasure in doing things: not at all 2. Feeling down, depressed, or hopeless: not at all 3. Trouble falling or staying asleep, or sleeping too much: not at all 4. Feeling tired or having little energy: not at all 5. Poor appetite or overeating: not at all 6. Feeling bad about yourself - or that you are a failure or have let yourself or your family down: not at all 7. Trouble concentrating on things, such as reading the newspaper or watching television: not at all 8. Moving or speaking so slowly that other people could have noticed. Or the opposite - being so fidgety or restless that you have been moving around a lot more than usual: not at all 9. Thoughts that you would be better off or of hurting yourself in some wa y: not at all Total score: 0 Depression Screening Interpretation: Negative Depression Screening Done: Yes 57380 - PHQ-9 Billing: Yes Source: Developed by Drs. Nik Silvestre, Tia Mariee, Tavares Elliott and colleagues, with an educational anthony from [employer]. Thrive Questionnaire Date Thrive assessed: 10/06/24 I am a: Patient What is your living situation today?: I have a steady place to live Within the past 12 months, did the food you bought not last and you didn't have the money to get more?: Never true Within the past 12 months, did you worry whether your food would run out before you got money to buy more?: Never true Do you have trouble paying for medicines?: No Do you have trouble getting transportation to medical appointments?: No Do you have trouble paying your heating and electricity bill?: No Do you have trouble taking care of your child, family member or friend?: No Do you have trouble with day-to-day activities such as bathing, preparing meals, shopping, managing finances, etc.?: No Are you currently unemployed and looking for a job?: No Are you interested in more education?: No Please select the resources that you would like help with: None Currently or been in a relationship where the following occur: No concerns reported THRIVE Score: 0 AUDIT C Alcohol Use Questionnaire (AUDIT-C) 1. How often do you have a drink containing alcohol?: Monthly or less 2. How many drinks containing alcohol do you have on a typical day when you are drinking?: 1 or 2 3. How often do you have six or more drinks on one occasion?: Never Total Score: 1 Score Reviewed/Action Taken: Yes TONEY-7 AMB Questionnaire TONEY-7 Date TONEY - 7 assessed: 10/06/24 Feeling nervous, anxious, or on edge: 0 = Not at all Not being able to stop or control worryin = Not at all Worrying too much about different things: 0 = Not at all Trouble relaxin = Not at all Being so restless that it is hard to sit still: 0 = Not at all Becoming easily annoyed or irritable: 0 = Not at all Feeling afraid as if something awful might happen: 0 = Not at all Total TONEY-7 score (0-4 normal; 5-9 mild; 10-14 moderate; 15-21 severe): 0 Source: Developed by Drs. Nik Silvestre, Tia Mariee, Tavares Elliott and colleagues, with an educational anthony from [employer]. TONEY-7 Assessment Billing TONEY-7 Assessment Tool: TONEY-7 Assessment 55457 Review of Systems Const Details: - Cardiovascular: Denies chest pain, reports low blood pressure readings at home. - Respiratory: Denies dyspnea, reports use of CPAP for obstructive sleep apnea. - Gastrointestinal: Reports improved bowel movements with dietary adjustments, denies black or bloody stools. - Musculoskeletal: Reports improved energy levels, no longer experiences fatigue with minimal exertion. - ENT: Reports throat pain, denies nasal congestion or fever. All systems reviewed & are unremarkable except as noted in HPI and below Physical exam (Primary Care) Vital Signs: Last Vital Signs Temp 97.9 F 03/10/25 11:04 Pulse 96 03/10/25 11:04 Resp 16 03/10/25 11:04 BP 103/56 L 03/10/25 11:04 Pulse Ox 97 03/10/25 11:04 Oxygen Delivery Method Room Air 03/10/25 11:04 Care Plan Goal for BP management: <140/90 at Goal BMI result Body Mass Index 70.2 Tobacco/Smoking Status: Tobacco use Status Tobacco use date assessed 10/06/24 03/10/25 11:03 Patient Tobacco Use Status Former Tobacco user 03/10/25 11:13 e-Cigarette/Vaping Use Never Used 03/10/25 11:13 PHQ-9: PHQ-9 Score PHQ-9: Total score 0 03/10/25 11:03 Depression Screening Interpretation: Negative Thrive Assessment: Date of Thrive Assessment Date Thrive assessed 10/06/24 03/10/25 11:03 Currently or been in a relationship where the following occur: No concerns reported Const Other: Appearance: Alert. Oriented X3. No acute distress. Head: Normal external exam. Normocephalic. Atraumatic. Eyes: Pupils are equal, round, and reactive to light. Extraocular movements intact. Conjunctiva and sclera normal. Eyelids normal. Ears: External auditory canal normal. Tympanic membranes normal. Throat: Posterior pharynx mildly erythematous no exudate is noted. Normal voice. No trismus drooling or stridor is noted. Soft and hard palate within normal limits. Uvula midline. Moist mucous membranes. Neck: Normal inspection. Neck supple. Full range of motion. No adenopathy. Thyroid Normal. No meningeal signs. No neck mass noted. Cardiovascular: Normal heart rate and rhythm. Heart sound normal. No murmurs noted. Pulses normal throughout. Respiratory: No respiratory distress. Painless inspiration. Breath sounds normal. No wheezes/rales/rhonchi noted. Chest nontender. No accessory muscle usage noted or decreased air movement noted. Abdomen: Soft and nontender. No distention noted. No organomegaly noted. Back: Full range of motion noted. Skin: Skin warm and dry. Normal skin color. Normal skin turgor. No rashes/lesions/lacerations noted. Extremities: No lower extremity edema. Extremities exhibit normal range of motion. Extremities nontender. Neuro: Oriented X 3. No motor deficit. No sensory deficit. Reflexes normal. Results Reviewed Results Reviewed: - Labs: CBC normal, no anemia; sodium normal; kidney function normal; A1c at 5.2; liver enzymes slightly elevated (ALT 54-55); cholesterol improved with LDL reduced from 113 to 57 mg/dL. Coding Level of Care Code Est Pt Level 4 (60539) Est Pt Prev Care 40-64y(46710) Diagnoses Annual physical exam Z00.00 Hypertension I10 Hyperlipidemia LDL goal <100 E78.5 Obstructive sleep apnea on CPAP G47.33 Morbid obesity with BMI of 70 and over, adult E66.01; Z68.45 Elevated liver enzymes R74.8 Throat pain R07.0 Additional Codes TONEY-7 Assessment Billing - TONEY-7 Assessment Tool: TONEY-7 Assessment 88947 ([id number]) PHQ-9 - 65398 - PHQ-9 Billing: Yes ([id number]) Assessment & Plan Assessment & Plan (1) Annual physical exam: Code(s): Z00.00 - Encounter for general adult medical examination without abnormal findings Category: Medical (2) Hypertension: Code(s): I10 - Essential (primary) hypertension Category: Medical Plan: The patient is advised to monitor blood pressure at home and discontinue losartan if readings remain consistently below 120/80 mmHg. Follow-up in three months to reassess blood pressure management. (3) Hyperlipidemia LDL goal <100: Code(s): E78.5 - Hyperlipidemia, unspecified Category: Medical Plan: The patient is to continue atorvastatin therapy, with a potential reevaluation of the need for medication in the future based on cholesterol levels. Condition is chronic and stable will continue to monitor. (4) Obstructive sleep apnea on CPAP: Code(s): G47.33 - Obstructive sleep apnea (adult) (pediatric) Category: Medical Plan: The patient is advised to continue using the CPAP machine for management of obstructive sleep apnea. Condition is chronic and stable will continue to monitor. (5) Morbid obesity with BMI of 70 and over, adult: Code(s): E66.01 - Morbid (severe) obesity due to excess calories; Z68.45 - Body mass index [BMI] 70 or greater, adult Category: Medical Plan: The patient is encouraged to continue current lifestyle modifications and medication regimen with Zepbound, with consideration for bariatric surgery consultation upon reaching a 100-pound weight loss. He has lost 81 lb since August. He has changed his diet. He is exercising. He is feeling much better overall while on the Zepbound and during weight loss. Will continue current regimen. Condition is chronic and improving will continue to monitor. (6) Elevated liver enzymes: Code(s): R74.8 - Abnormal levels of other serum enzymes Category: Medical Plan: The patient is advised that the slight elevation in liver enzymes may be due to medication or dietary factors, with no immediate intervention required. Condition is chronic and stable continue to monitor. (7) Throat pain: Code(s): R07.0 - Pain in throat Category: Medical Plan: The patient is prescribed a Z-Wilber for throat pain, with instructions to follow up if symptoms do not improve. Plan Plan Patient was informed and verbally consented to the use of an ambient scribe for clinic note documentation during this visit. 1. Hypertension The patient is advised to monitor blood pressure at home and discontinue losartan if readings remain consistently below 120/80 mmHg. Follow-up in three months to reassess blood pressure management. 2. Hyperlipidemia The patient is to continue atorvastatin therapy, with a potential reevaluation of the need for medication in the future based on cholesterol levels. 3. Obstructive Sleep Apnea The patient is advised to continue using the CPAP machine for management of obstructive sleep apnea. 4. Obesity The patient is encouraged to continue current lifestyle modifications and medication regimen, with consideration for bariatric surgery consultation upon reaching a 100-pound weight loss. 5. Elevated Liver Enzymes The patient is advised that the slight elevation in liver enzymes may be due to medication or dietary factors, with no immediate intervention required. 6. Throat Pain The patient is prescribed a Z-Wilber for throat pain, with instructions to follow u p if symptoms do not improve. During the visit, I discussed with the patient the importance of monitoring blood pressure at home and the potential need to discontinue losartan if readings remain low. We reviewed the patient's cholesterol management with atorvastatin and the possibility of reevaluating the need for medication in the future. I advised the patient to continue using the CPAP machine for obstructive sleep apnea and encouraged ongoing lifestyle modifications for weight management. We also discussed the slight elevation in liver enzymes, attributing it to possible medication or dietary factors, and prescribed a Z-Wilber for throat pain. Medications: New azithromycin For 250 mg dose pack: take 500 mg today (day 1), then 250 mg for 4 days (days 2-5) PO 6 tabs 0RF Patient Instructions: - Monitor blood pressure at home and discontinue losartan if readings are consistently below 120/80 mmHg. - Continue atorvastatin therapy and follow up for reevaluation of cholesterol levels. - Use CPAP machine regularly for obstructive sleep apnea management. - Maintain current lifestyle modifications and consider bariatric surgery consultation upon reaching a 100-pound weight loss. - Take prescribed Z-Wilber for throat pain and follow up if symptoms do not improve.
[2025-03-10 11:04] VITALS: BP 103/56; PULSE 96; RESP 16; TEMP 36.6; O2SAT 97; BMI 70.2
--- OUTSIDE RECORDS SUMMARY | 2025-03-10 11:05 | XMS_ITS ---
Author Organization Unknown [facility] Encounter Performer Location Date Diagnosis Diagnosis Status Outpatient [address] [address] [id number] [facility] *Note: Encounters from your own facility or health system may be excluded. Allergies, Adverse Reactions, Alerts Allergen Type Severity Identification Date Medications Name Date Quantity Days Supplied GPI Number
== END 2025-03-10 14:36 | disposition home or self-care (01) ==
LOC: HO.HMCSH 10:59
PROVIDERS: PCP Internal Medicine; Visit Provider Physician Assistant Medical
DX: Z00.00 Encounter for general adult medical examination without abnormal findings (principal); I10 Essential (primary) hypertension; E66.01 Morbid (severe) obesity due to excess calories; Z68.45 Body mass index [BMI] 70 or greater, adult; E78.5 Hyperlipidemia, unspecified; G47.33 Obstructive sleep apnea (adult) (pediatric); R74.8 Abnormal levels of other serum enzymes; R07.0 Pain in throat

== ENCOUNTER → 2025-03-10 10:58 | Outpatient (BNVA) | payer OTHER, SELFPAY | PROVIDERS: PCP Internal Medicine; Visit Provider Physician Assistant Medical | DX: Z00.00 Encounter for general adult medical examination without abnormal findings (principal); E78.5 Hyperlipidemia, unspecified; G47.33 Obstructive sleep apnea (adult) (pediatric); I10 Essential (primary) hypertension; E66.01 Morbid (severe) obesity due to excess calories; R74.8 Abnormal levels of other serum enzymes; R07.0 Pain in throat; Z68.45 Body mass index [BMI] 70 or greater, adult; Z99.89 Dependence on other enabling machines and devices | CPT/HCPCS: 96127 ==

== ENCOUNTER 2025-05-26 08:21 | Outpatient (AMB) | payer OTHER, SELFPAY ==
--- OUTSIDE RECORDS SUMMARY | 2025-05-26 08:42 | XMS_ITS ---
Author Organization Unknown [facility] Encounter Performer Location Date Diagnosis Diagnosis Status Outpatient [address] [address] [id number] [facility] *Note: Encounters from your own facility or health system may be excluded. Allergies, Adverse Reactions, Alerts Allergen Type Severity Identification Date Medications Name Date Quantity Days Supplied GPI Number
--- NOTE | 2025-05-26 12:12 | MHC.OFFVISWM ---
VS Expanded 05/26/25 12:30 Height 5 ft 10 in Weight 417 lb 8 oz BMI 59.9 Body Fat % 49.8 Body Fat Mass 208.2 Fat Free Mass 209.6 Visceral Fat Rating 41 Body Water % 40.2 Body Water Mass 167.8 Basal Metabolic Rate/Score 3,126 Intake Visit Reasons: [employer] BMI 59.9 Allergies shrimp Allergy (Unknown, Verified 05/26/25 12:12) Stomach Upset Medication List - Last Reconciled 05/26/25 by Joey De Luna MD CPAP (CPAP Machine/Device) As directed tirzepatide (weight loss) 15 mg (0.5 mL) subcut QWEEK HPI HPI [employer] SW[employer] BMI 59.9: Details: Start time: 12pm, End time: 12.45pm ?I spent 40 minutes speaking with the patient on the phone plus an additional 5 minutes reviewing and updating records for a total of 45 minutes HPI Comments Details: Previous weight loss efforts: [facility] program, Zepbound up to 15mg for 12 months: lost 120lbs Wakes up: 3am, Sleeps: 9pm Breakfast: 8am Protein parfait (Paraguayan yogurt with protein powder with almonds) Lunch: skips Dinner: 4pm (rice, meat) Snacks: 11-12pm (chips or fruits Exercise: Gym membership, walking outside, nothing at home Beverages: Coffee: (2-3 cups/d with creamer), Tea: none, Soda: Coke Zero occasionally, Juice: none, ETOH: rarely PFSH Medical History (Updated 05/26/25 @ 12:27 by Joey De Luna MD) Morbid obesity Erectile dysfunction Low testosterone Throat pain Elevated liver enzymes Annual physical exam Hyperlipidemia LDL goal <100 Elevated ALT measurement Prediabetes Hypertension Morbid obesity with BMI of 70 and over, adult Obstructive sleep apnea on CPAP Surgical History Hx of carpal tunnel repair Family History Mother No problems noted. Father No problems noted. Social History (Updated 05/19/25 @ 14:48 by Monserrat Meadows CMA) Housing: Apartment Alcohol intake: current Alcohol intake frequency: holidays/special occasions only Patient Tobacco Use Status: Former Tobacco user Cigarettes Per Day: 2 e-Cigarette/Vaping Use: Never Used Second Hand Smoke Exposure: Yes service: No Current occupational status: employed Cognitive needs: No Hearing needs: No Vision needs: Yes (rx glasses/ contacts) Telehealth Telehealth Telehealth Platform: Telephone Location of provider rendering services: practice address Location of patient: address on file Patient Identification confirmed using: Name, : Yes Telehealth method: voice only Patient verbally consented to treatment: Yes Patient verbally consented to billing insurance company: Yes Patient informed of any privacy concerns related to visit: Yes Minutes spent on Phone/Video with Pt.: 45 Assessment & Plan Assessment & Plan (1) Morbid obesity: Code(s): E66.01 - Morbid (severe) obesity due to excess calories Category: Medical Plan: 1.? Plan for lap sleeve gastrectomy. If diaphragmatic or ventral hernias are present at time of surgery, these will be repaired laparoscopically as well. I emphasized the importance of close follow-up, adherence to instructions and good communication. The surgery does not replace the need to change your lifestlyle which is the cause of the obesity problem. The surgery provides the motivation to try again to change your lifestyle, it reduces the appetite and make the transition to a better lifestyle easier and doubles the amount of weight you would lose compared to doing the lifestyle change without the surgery. You will need to be on a liquid diet with protein shakes for 2 weeks before surgery to maximize weight loss and boost your nutritional status to recover better from surgery and also for the first two weeks after surgery to let the stomach heal before we introduce other foods. After the first 2 weeks we will introduce protein bars and soft foods like scrambled eggs, cottage cheese and yogurt and after the 6th week will introduce meat, fish and cooked vegetables in small amounts. Over time you should be able to eat everything in small amounts. Side effects like nausea, vomiting, heartburn or abdominal pain are not common in the practice unless you are not following in the practice. This operation requires lifetime commitment to following in our practice and communication with me. You will much less weight and experience side effects if you don?t communicate or not following in the practice. Complications are rare and in our practice is about 1/10 of the national average. However, you can develop bleeding that may require transfusion (hasn?t happened for year in the practice), you may from complications (we did not have any deaths in the practice) and infections. Infections are usually a result of breakdown in communication or not understanding or following directions correctly. They are difficult to treat, they can happen during the first 6 weeks, they may require to be in the hospital for weeks or even months, not being able to eat by mouth and you may have drains and surgeries to try and correct the issue. Other risks and complications include possible conversion to an open procedure, leaks, small bowel obstruction, blood clots, cardiac, or pulmonary complications, as senior care complications such as ulcers, insufficient weight loss and vitamin deficiencies. 2. Nutritional counseling. Start with your protein parfait (5oz Paraguayan yogurt, plus with one scoop of Lean Whey protein but avoid adding fruits and almond) at 4am-8am, 1 protein bar (CELEBRATE protein bars, buy at [facility] gift shop, buy online with the link I gave you) ) at 9am-10am, another CELEBRATE REBUILD protein shake (TWO scoops in 8oz low fat unsweetened almond milk) at 11am-1pm, another Celebrate protein bar at 2pm-4pm, dinner at 5pm (12 forks of protein and 12 forks of salad/vegetables) AND another Celebrate protein bar after dinner at 7pm-9pm. So you do one protein parfait , 1 protein shakes, 3 protein bars and one meal per day. Meal to include lean meat (beef, fish, pork, turkey, chicken), or moroccan yogurt, or egg whites, or beans with a salad with olive oil and fruits (berries, pears, apples, kiwi). Avoid salt, breads, potatoes, rice, pasta, desserts. 3. Each shake would be drunk slowly, like coffee in a period of 2 hours. 4. Cut each bar in 4 pieces and eat each piece in 30min ?to make each bar last 2 hours. 5. I emphasized the importance of measuring accurately the food portion and measure it when serving the food in plate 6. The meal portions include 12 full-size forks of meat and 12 full-size forks of salad. You always eat the meat portion but you can replace up to 6 forks for salad/vegetables with rice, potatoes or pasta, or a fruit ?if you like. The less you do it the better weight loss will be. 7. One full-size fork is what it can be scooped on the fork without falling aside and not what can be bit with the fork. Use regular forks like those you find in a typical restaurant. 8.? Please buy the body composition scale we discussed and send me weight measurements as soon as possible and then once a week. Always include your diet and exercise plan. 9. Start walking outside daily, tracking calories with a goal of 300 calories per day, daily. Goal is to burn 2000 calories per week on exercise, which means either 300 calories daily, or 400 calories 5 days per week, or 500 calories 4 days per week, or 650 calories 3 days per week. 10. The best choice would be to purchase a stationary bike at home that can track calories. Let me know if you do so I can give you an exercise plan. 11. Goal is to lose at least 1.5-2lbs per week 12. Goal to lose 10% of your weight before surgery, which is about 40lbs. Ultimate weight goal: below 400 lbs before surgery and ideally 380lbs 13. Please follow the diet plan exactly without any change. If you don't like something about the plan or you feel hungry you need to communicate with me so I can help you revise the plan. You should not change the plan yourself 14. To be scheduled for EGD to assess the stomach's anatomy. The possibility of biopsies was discussed. Patient needs to avoid use of NSAIDs and aspirin for 1 week prior to EGD. You must be on liquids only the day before your endoscopy. Risks of perforation and bleeding was discussed with the patient. This will be an outpatient procedure with IV sedation. Orders: Orders XR chest 2V Today E66.01 - Morbid (severe) obesity due to excess calories ECG 12 lead EKG Today E66.01 - Morbid (severe) obesity due to excess calories Referrals Behavioral Health Referral E66.01 - Morbid (severe) obesity due to excess calories
[2025-05-26 12:30] VITALS: BMI 59.9
== END 2025-05-26 12:45 | disposition home or self-care (01) ==
LOC: HO.HBS 08:21
PROVIDERS: PCP Internal Medicine; Visit Provider Surgery
DX: E66.01 Morbid (severe) obesity due to excess calories (principal); Z68.43 Body mass index [BMI] 50.0-59.9, adult
CPT/HCPCS: 99214

== ENCOUNTER 2025-06-21 10:07 | Outpatient (AMB) | payer OTHER, SELFPAY ==
--- NOTE | 2025-06-21 10:10 | A.OFFWM_ITS ---
Intake Intake Visit Reasons: OV BH Intake Allergies shrimp Allergy (Unknown, Verified 05/26/25 12:12) Stomach Upset PFSH Medical History (Updated 05/26/25 @ 12:27 by Joey De Luna MD) Morbid obesity Erectile dysfunction Low testosterone Throat pain Elevated liver enzymes Annual physical exam Hyperlipidemia LDL goal <100 Elevated ALT measurement Prediabetes Hypertension Morbid obesity with BMI of 70 and over, adult Obstructive sleep apnea on CPAP Surgical History Hx of carpal tunnel repair Family History Mother No problems noted. Father No problems noted. Social History (Updated 05/19/25 @ 14:48 by Monserrat Meadows CMA) Housing: Apartment Alcohol intake: current Alcohol intake frequency: holidays/special occasions only Patient Tobacco Use Status: Former Tobacco user Cigarettes Per Day: 2 e-Cigarette/Vaping Use: Never Used Second Hand Smoke Exposure: Yes service: No Current occupational status: employed Cognitive needs: No Hearing needs: No Vision needs: Yes (rx glasses/ contacts) Behavioral Health Assessment Weight Management Therapy Therapy Notes Details The patient is a 44-year-old male returning to the program after previously participating in 2022, during which he engaged in consistent behavioral health support until March 2024. He presents today to complete a new behavioral health assessment as part of the surgical weight loss program. Several months ago, his primary care provider initiated tirzepatide (Zepbound) for weight management. At that time, his weight was 539 lbs, which was his highest recorded weight. As of today, he weighs 412 lbs and reports positive progress with his current meal and exercise regimen. Presenting Concerns Referral Source [facility]-Provider Reason for referral Completion of behavioral health assessment as part of process for weight-loss surgery. Precipitating Event Obesity. Living Situation Current Living Situation Rent At risk of losing current housing? No Satisfied with current living situation? Yes Comments PT lives alone. Food/Weight/Diet Expectations of change PT started the program at 417Lbs, Initial goal is to lose 10% of your weight before surgery, which is about 40lbs. Ultimate weight goal: below 400 lbs before surgery and ideally 380lbs. PT is implementing the following: Current meal plan: one protein parfait , 1 protein shakes, 3 protein bars and one meal per day. Exercise plan: stationary bike and walking. Scale: yes. Communication w/ provider: History/Relationship with food PT reports since last time he did the program he has learned and modified his eating. Example of meals before starting the program: Breakfast: 8am Protein parfait (Mongolian yogurt with protein powder with almonds) Lunch: skips Dinner: 4pm (rice, meat) Snacks: 11-12pm (chips or fruits Beverages: Coffee: (2-3 cups/d with creamer), Tea: none, Soda: Coke Zero occasionally, Juice: none, ETOH: rarely History/Relationship with weight The patient reports a history of obesity since childhood. Over the past 10 years, his weight has ranged from a high of 539 lbs to a current low of 414 lbs. Notably, in 2006, his weight was 330 lbs, which he achieved through increased physical activity and dietary restriction. History/Relationship with dieting [facility] program, Zepbound up to 15mg for 12 months: lost 120lbs Binge Eating Do you frequently eat large amounts of food in short periods of time, not feeling physically hungry? No Do you feel out of control when you eat a large amount of food in a short period of time? No Do you eat large amounts of food rapidly and typically alone? No Night Eating Do you wake up at least once during the night to eat? No If you wake up in the night, do you find that it is necessary to eat something in order to fall back asleep? No Do you have little or no appetite in the morning and feel very hungry in the evening, often overeating between dinner and when you go to bed? No Social History Family history and relationship since 2020. Father . Mother and brother in [place]. Parental/Familial still cleaner tube obligations 2 stepchildren (18 y/o girl and 14 y/o boy) Developmental history and status None. currently WNL Social support Mother. co-workers. Community support None. 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 At times attends [employer]. Cultural/Ethnic information Micronesian. [place]oved [place] the [place] 3 years ago. Panamanian-speaking only. Legal Involvement and History Current or historical involvement with the legal system? None. Education Highest grade completed 12th grade. Preferred learning style Auditory, Verbal, Written, Learn by doing and Visual Currently enrolled in educational program? No Interested in further educational program? 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 No Meaningful activities [employer] Financial Situation Describe current financial situation Comfortable Financial assistance? None Service Service? No Mental Health and Addiction Treatment Current/Past substance abuse? No Comments Alcohol: Couple times at year, 2-3 beers. Only on social events. Cigarettes/Tobacco: 3-4 at day - but not daily, 1-2 times at week. Cannabis/Edibles: none. Current/Past addictive behavior concerns? No Psychiatric history The patient was previously seen by this provider in 2022?2023. Aside from this, he reports no prior history of counseling, psychiatric hospitalization, or mental health crises. He denies any past or current concerns with suicidal ideation, suicide attempts, or self-harm, and has no history of harm to others. Medical and Physical Health Summary Additional Medical History not covered in history None reported Sexual History concerns None reported Physical exam in the last year? Yes Pain Screening Current pain? Yes (Knee and back.) Pain in the last few months? Yes Comments Knee pain. Medications Is the patient compliant with medications? Yes Does the patient have Duggan Guardian in place? Not applicable Does the patient use complimentary health approaches? No Trauma/Abuse History History of trauma? Yes (When became homeless in 2020.) Questionnaires PHQ-9 Over the last 2 weeks, how often have you been bothered by any of the following problems? 1. Little interest or pleasure in doing things: not at all 2. Feeling down, depressed, or hopeless: not at all 3. Trouble falling or staying asleep, or sleeping too much: not at all 4. Feeling tired or having little energy: not at all 5. Poor appetite or overeating: not at all 6. Feeling bad about yourself - or that you are a failure or have let yourself or your family down: not at all 7. Trouble concentrating on things, such as reading the newspaper or watching television: not at all 8. Moving or speaking so slowly that other people could have noticed. Or the opposite - being so fidgety or restless that you have been moving around a lot more than usual: not at all 9. Thoughts that you would be better off or of hurting yourself in some way: not at all Total score: 0 Depression Screening Interpretation: Negative Depression Screening Done: Yes 35261 - PHQ-9 Billing: Yes Source: Developed by Drs. Nik Silvestre, Tia Mariee, Tavares Elliott and colleagues, with an educational anthony from [employer]. Binge Eating Scale Group 1 A. I don't feel self-conscious about my wt. or body size when I'm with others. B. I feel concerned about how I look to others, but it normally does not make me fell disappointed with myself C. I do get self-conscious about my appearance and wt. which makes me feel disappointed in myself. D. I feel very self-conscious about my wt. and frequently I feel intense shame and disgust for myself. I try to avoid social contacts because of my self- consciousness. Response Group 1: A Group 2 A. I don't have any difficulty eating slowly in the proper manner. B. Although I seem to gobble down foods, I don't end up feeling stuffed because of eating to much. C. At times, I tend to eat quickly and then, I feel uncomfortably full afterwards. D. I have the habit of bolting down my food, without really chewing it. When this happens I usually feel uncomfortably stuffed because I've eaten to much. Response Group 2: A Group 3 A. I feel capable to control my eating urges when I want to. B. I feel like I have failed to control my eating more than the average person. C. I feel utterly helpless when it comes to feeling in control of my eating urges. D. Because I feel so helpless about controlling my eating I have become very desperate about trying to get control. Response Group 3: A Group 4 A. I don't have the habit of eating when I'm bored. B. I sometimes eat when I'm bored, but often I'm able to get busy and get my mind off food. C. I have a regular habit of eating when I'm bored, but occasionally, I can use some other activity to get my mind off eating. D. I have a strong habit of eating when I'm bored. Nothing seems to help me breath the habit. Response Group 4: A Group 5 A. I'm usually physically hungry when I eat something. B. Occasionally, I eat something on impulse even though I really am not hungry. C. I have the regular habit of eating foods, that I might not really enjoy, to satisfy a hungry feeling even though physically, I don't need the food. D. Although I'm not physically hungry, I get a hungry feeling in my mouth that only seems to be satisfied when I eat a food, like sandwich, that fills my mouth. Sometimes, when I eat the food to satisfy my mouth hunger, I then spit the food out so I won't gain weight. Response Group 5: A Group 6 A. I don't feel any guilt or self-hate after I overeat. B. After I overeat, occasionally I feel guilt or self-hate. C. Almost all the time I experience strong guilt or self-hate after I overeat. Response Group 6: A Group 7 A. I don't lose total control of my eating when dieting even after periods when I overeat. B. Sometimes when I eat a forbidden food on a diet, I feel like I blew it and eat even more. C. Frequently, I have the habit of saying to myself, I've blown it now, why not go all the way, when I overeat on a diet. When that happens I eat more. D. I have a regular habit of starting a strict diets for myself but I break the diets by going on an eating binge. My life seems to be either a feast or famine. Response Group 7: A Group 8 A. I rarely eat so much food that I feel uncomfortably stuffed afterwards. B. Usually about once a month, I each such a quantity of food, I end up feeling very stuffed. C. I have regular periods during the month when I eat large amounts of food, either at mealtime or at snacks. D. I eat so much food that I regularly feel quite uncomfortable after eating and sometimes a bit nauseous. Response Group 8: A Group 10 A. I usually am able to stop eating when I want to. I know when enough is enough. B. Every so often, I experience a compulsion to eat which I can't seem to control. C. Frequently, I experience strong urges to eat which I seem unable to control, but at other times I can control my eating urges. D. I feel incapable of controlling urges to eat. I have a fear of not being able to stop eating voluntarily. Response Group 10: A Group 11 A. I don't have any problem stopping eating when I feel full. B. I usually can stop eating when I feel full but occasionally overeat leaving me feeling uncomfortably stuffed. C. I have a problem stopping eating once I start and usually I feel uncomfortably stuffed after I eat a meal. D. Because I have a problem not being able to stop eating when I want, I sometimes have to induce vomiting to relieve my stuffed feeling. Response Group 11: A Group 12 A. I seem to eat just as much when I'm with others, Family social gatherings as when I'm by myself. B. Sometimes, when I'm with other persons, I don't eat as much as I want to eat because I'm self-conscious about my eating. C. Frequently, I eat only a small amount of food when others are present, because I'm very embarrassed about my eating. D. I feel so ashamed about overeating that I pick times to overeat when I know no one will see me. I feel like a closet eater. Response Group 12: A Group 13 A. I eat three meals a day with only an occasional between meal snack. B. I eat 3 meals a day, but I also normally snack between meals. C. When I am snacking heavily, I get in the habit of skipping regular meals. D. There are regular periods when I seem to be continually eating, with no planned meals. Response Group 13: A Group 14 A. I don't think much about trying to control unwanted eating urges. B. At least some of the time, I feel my thoughts are pre-occupied with trying to control my eating urges. C. I feel that frequently I spend much time thinking about how much I ate or about trying not to eat anymore. D. It seems to me that most of my waking hours are pre-occupied by thoughts about eating or not eating. I feel like I'm constantly struggling not to eat. Response Group 14: A Group 15 A. I don't think about food a great deal. B. I have strong craving for food but they last only for brief periods of time. C. I have days when I can't seem to think about anything else but food. D. Most of my days seem to be pre-occupied with thoughts about food. I feel like I live to eat. Response Group 15: A Group 16 A. I usually know whether or not I'm physically hungry. I take the right portion of food to satisfy me. B. Occasionally, I feel uncertain about knowing whether or not I'm physically hungry. A these times it's hard to know how much food I should take to satisfy me. C. Even though I might know how many calories I should eat, I don't have any idea what is a normal amount of food for me. Response Group 16: A Binge Eating Score: 0 Score less than 17 Minimal Risk Score between 18-26 Moderate Risk Score between 27-46 High Risk Assessment & Plan Assessment & Plan (1) Adjustment disorder: Code(s): F43.20 - Adjustment disorder, unspecified Plan Following a comprehensive behavioral health assessment?including review of the Binge Eating Scale, PHQ-9, mental status evaluation, and patient self- report?there are currently no behavioral health contraindications to proceeding with bariatric surgery. The patient demonstrates appropriate insight, motivation, and psychological readiness for the procedure. No active psychiatric symptoms or maladaptive eating behaviors were identified that would impede lane rgical outcomes at this time. The patient is cleared from a behavioral health perspective to proceed with bariatric surgery and documentation can be submitted for insurance approval as indicated. PT will return in about a 6-8 weeks for pre-op support and then postoperatively to monitor psychological adjustment, reinforce coping strategies, and screen for any emerging concerns such as mood changes, adjustment difficulties, or disordered eating patterns. Additional behavioral health support will be provided as needed based on postoperative assessment. Next reyes: 08/11/2025 at 9am, OV. [place] [address] Psy Diag Eval Patient Type New Diagnoses Adjustment disorder F43.20 Additional Codes PHQ-9 - 32431 - PHQ-9 Billing: Yes ([id number]) Time Spent (min) 50
== END 2025-06-21 11:07 | disposition home or self-care (01) ==
LOC: HO.HBST 10:08
PROVIDERS: PCP Internal Medicine; Visit Provider Counselor Mental Health
DX: F43.20 Adjustment disorder, unspecified (principal)
CPT/HCPCS: 90791

== ENCOUNTER 2025-06-22 11:05 | Outpatient (AMB) | payer OTHER, SELFPAY ==
--- NOTE | 2025-06-22 11:04 | A.OFFPC_ITS ---
Vital Signs 06/22/25 11:11 Height 5 ft 7.32 in Weight 409 lb BMI 63.4 BP 100/55 L Blood Pressure Location Rt brachial Position Sitting Respiration 16 Pulse 84 Pulse Source Pulse Oximeter Temp 97.6 F Temp Source Temporal Artery Scan Pulse Oximetry (%) 96 Oxygen Delivery Method Room Air Intake Visit Reasons: 3 months State Comptroller Required: No Accompanied by: Self / Same As Patient Allergies shrimp Allergy (Unknown, Verified 06/22/25 12:01) Stomach Upset Medication List - Last Reconciled 06/22/25 by Rachna Loredo PA-C multivitamin 1 tab PO DAILY tirzepatide (weight loss) (Zepbound) 15 mg (0.5 mL) subcut QWEEK Tobacco use date assessed: 10/06/24 Dental Screening Dental Screen Date: 10/06/24 HPI HPI Comments History of Present Illness Details History of Present Illness The patient is a 44 year old male presenting for a routine check-up and to manage his weight loss. He has achieved significant weight loss, weighing 409 lbs down from 539 lbs, and has been cleared for bariatric surgery. He is concerned about the subsequent surgery to remove excess skin. He has an upcoming endoscopy, chest x-ray, and EKG as part of his pre-operative evaluation. His weight loss has been aided by a self-directed diet, which included a breakfast of yogurt, fruits, and almonds, resulting in a loss of 1-4 pounds per week. A development technologist advised him to eliminate fruits and nuts and instead consume multiple protein bars and shakes, which the patient finds discouraging and is not fully adhering to. His exercise is limited to 10 minutes at a time due to knee pain, and he previously stopped going to the gym because of back problems. The patient has a history of obstructive sleep apnea but has not used his CPAP machine for approximately two months, as he feels it is no longer necessary following his weight loss. He also has a history of anemia and low vitamin B12 in 2016, which required injections. Recent lab trends show his vitamin B12 level decreasing from 628 pg/mL in September to 537 pg/mL in February. His cholesterol levels have markedly improved between September and February, with triglycerides dropping from 96 to 75 mg/dL, total cholesterol from 167 to 105 mg/dL, and LDL cholesterol from 113 to 57 mg/dL. However, his HDL cholesterol remains low at 33 mg/dL. His blood pressure is not an issue. Social History - Employment: The patient is employed an d his insurance is provided through his work. - Insurance: He has [employer]. - Diet: He follows a self-managed diet t hat includes a protein parfait, a protein bar, and one meal per day. - Exercise: He engages in about 10 minut es of exercise, limited by knee pain. - Functional Status: He reports feeling better than he has in the past 10 years, with his main physical limitation being knee pain. [facility] Medical History (Updated 06/22/25 @ 12:06 by Rachna Loredo PA-C) Knee pain ANDREIA (obstructive sleep apnea) Vitamin B12 deficiency Morbid obesity with BMI of 60.0-69.9, adult Morbid obesity with BMI of 70 and over, adult Morbid obesity Erectile dysfunction Low testosterone Throat pain Elevated liver enzymes Annual physical exam Hyperlipidemia LDL goal <100 Elevated ALT measurement Prediabetes Hypertension Obstructive sleep apnea on CPAP Surgical History Hx of carpal tunnel repair Family History Mother No problems noted. Father No problems noted. Social History Housing: Apartment Alcohol intake: current Alcohol intake frequency: holidays/special occasions only Patient Tobacco Use Status: Former Tobacco user Cigarettes Per Day: 2 e-Cigarette/Vaping Use: Never Used Second Hand Smoke Exposure: Yes service: No Current occupational status: employed Cognitive needs: No Hearing needs: No Vision needs: Yes (rx glasses/ contacts) Questionnaire PHQ-9 Over the last 2 weeks, how often have you been bothered by any of the following problems? 1. Little interest or pleasure in doing things: not at all 2. Feeling down, depressed, or hopeless: not at all 3. Trouble falling or staying asleep, or sleeping too much: not at all 4. Feeling tired or having little energy: not at all 5. Poor appetite or overeating: not at all 6. Feeling bad about yourself - or that you are a failure or have let yourself or your family down: not at all 7. Trouble concentrating on things, such as reading the newspaper or watching television: not at all 8. Moving or speaking so slowly that other people could have noticed. Or the opposite - being so fidgety or restless that you have been moving around a lot more than usual: not at all 9. Thoughts that you would be better off or of hurting yourself in some way: not at all Total score: 0 Depression Screening Interpretation: Negative Depression Screening Done: Yes 55276 - PHQ-9 Billing: Yes Source: Developed by Drs. Nik Silvestre, Tia Mariee, Tavares Elliott and colleagues, with an educational anthony from [employer]. Thrive Questionnaire Date Thrive assessed: 10/06/24 I am a: Patient What is your living situation today?: I have a steady place to live Within the past 12 months, did the food you bought not last and you didn't have the money to get more?: Never true Within the past 12 months, did you worry whether your food would run out before you got money to buy more?: Never true Do you have trouble paying for medicines?: No Do you have trouble getting transportation to medical appointments?: No Do you have trouble paying your heating and electricity bill?: No Do you have trouble taking care of your child, family member or friend?: No Do you have trouble with day-to-day activities such as bathing, preparing meals, shopping, managing finances, etc.?: No Are you currently unemployed and looking for a job?: No Are you interested in more education?: No Please select the resources that you would like help with: None Currently or been in a relationship where the following occur: No concerns reported THRIVE Score: 0 AUDIT C Alcohol Use Questionnaire (AUDIT-C) 1. How often do you have a drink containing alcohol?: Monthly or less 2. How many drinks containing alcohol do you have on a typical day when you are drinking?: 1 or 2 3. How often do you have six or more drinks on one occasion?: Never Total Score: 1 Score Reviewed/Action Taken: Yes TONEY-7 AMB Questionnaire TONEY-7 Date TONEY - 7 assessed: 10/06/24 Feeling nervous, anxious, or on edge: 0 = Not at all Not being able to stop or control worryin = Not at all Worrying too much about different things: 0 = Not at all Trouble relaxin = Not at all Being so restless that it is hard to sit still: 0 = Not at all Becoming easily annoyed or irritable: 0 = Not at all Feeling afraid as if something awful might happen: 0 = Not at all Total TONEY-7 score (0-4 normal; 5-9 mild; 10-14 moderate; 15-21 severe): 0 Source: Developed by Drs. Nik Silvestre, Tia Mariee, Tavares Elliott and colleagues, with an educational anthony from [employer]. TONEY-7 Assessment Billing TONEY-7 Assessment Tool: TONEY-7 Assessment 43502 Review of Systems Narrative Review of Systems - General: Reports feeling well and healthy. - Integumentary: Reports loose skin secondary to significant weight loss. - Integumentary: Reports dry skin, possibly eczema, in hot weather. - Musculoskeletal: Reports knee pain. - Musculoskeletal: Reports back problems. - Respiratory: Denies symptoms of sleep apnea or feeling the need for his CPAP machine. Const All systems reviewed & are unremarkable except as noted in HPI and below Physical exam (Primary Care) Vital Signs: Last Vital Signs Temp 97.6 F 06/22/25 11:11 Pulse 84 06/22/25 11:11 Resp 16 06/22/25 11:11 BP 100/55 L 06/22/25 11:11 Pulse Ox 96 06/22/25 11:11 Oxygen Delivery Method Room Air 06/22/25 11:11 Care Plan Goal for BP management: <140/90 at Goal BMI result Body Mass Index 63.4 BMI Assessment/Plan discussion: High BMI High, discussed plan: lifestyle, weight reduction, dietary, physical activity, alcohol moderation and other Tobacco/Smoking Status: Tobacco use Status Tobacco use date assessed 10/06/24 06/22/25 11:06 Patient Tobacco Use Status Former Tobacco user 06/22/25 11:06 e-Cigarette/Vaping Use Never Used 06/22/25 11:06 PHQ-9: PHQ-9 Score PHQ-9: Total score 0 06/22/25 11:20 Depression Screening Interpretation: Negative Thrive Assessment: Date of Thrive Assessment Date Thrive assessed 10/06/24 06/22/25 11:06 Currently or been in a relationship where the following occur: No concerns reported Narrative Physical Exam Appearance: Alert. Oriented X3. No acute distress. Head: Normal external exam. Normocephalic. Atraumatic. Eyes: Pupils are equal, round, and reactive to light. Extraocular movements intact. Conjunctiva and sclera normal. Eyelids normal. Throat: Pharynx normal. Uvula midline. Moist mucous membranes. Neck: Normal inspection. Neck supple. Full range of motion. Cardiovascular: Normal heart rate and rhythm. Respiratory: No respiratory distress. Painless inspiration. Back: Full range of motion noted. Skin: Skin warm and dry. Normal skin color. Normal skin turgor. No rashes/lesions/lacerations noted. Extremities: Extremities exhibit normal range of motion. Neuro: Oriented X 3. No motor deficit. No sensory deficit. Reflexes normal. Results AMB Hemoglobin A1c AMB Hemoglobin A1c 5.1 % Last Edit by KYREE Rosa on 06/22/25 11:21 Results Reviewed Results Reviewed: Laboratory Last Values Hgb A1c (Clinic) 5.1 % (4.0-6.0) 06/22/25 11:07 Results - Labs from February review: - Lipid Panel: Total cholesterol 105 mg/dL, Triglycerides 75 mg/dL, LDL 57 mg/dL, HDL 33 mg/dL. - Vitamin B12: 537 pg/mL. Coding Level of Care Code Est Pt Level 4 (43604) Complex visit Add On G2211 Diagnoses Morbid obesity with BMI of 60.0-69.9, adult E66.01; Z68.44 Hyperlipidemia LDL goal <100 E78.5 Vitamin B12 deficiency E53.8 ANDREIA (obstructive sleep apnea) G47.33 Knee pain M25.569 Additional Codes TONEY-7 Assessment Billing - TONEY-7 Assessment Tool: TONEY-7 Assessment 44952 ([id number]) PHQ-9 - 97957 - PHQ-9 Billing: Yes ([id number]) Time Spent (min) 60 Assessment & Plan Assessment & Plan (1) Morbid obesity with BMI of 60.0-69.9, adult: Code(s): E66.01 - Morbid (severe) obesity due to excess calories; Z68.44 - Body mass index [BMI] 60.0-69.9, adult Category: Medical Plan: The patient has had excellent results with weight loss and is currently on the maximum dose of his medication. Will continue to prescribe Zepbound and plan to submit a prior authorization or appeal to his insurance, [employer], if coverage is denied in the future, citing his significant progress. He is cleared for bariatric surgery and has upcoming pre-operative testing. He was encouraged to continue his current diet, as it has been effective, despite conflicting advice from a development technologist. (2) Hyperlipidemia LDL goal <100: Code(s): E78.5 - Hyperlipidemia, unspecified Category: Medical Plan: The patient's lipid profile has improved dramatically, with his LDL and triglycerides now within normal limits. His HDL remains low at 33 mg/dL. Ordered a fasting lipid panel for today's visit. He was educated on increasing HDL through dietary sources of healthy fats, such as avocados and nuts. (3) Vitamin B12 deficiency: Code(s): E53.8 - Deficiency of other specified B group vitamins Category: Medical Plan: Due to a history of deficiency and a recent downward trend in his B12 levels post-weight loss, there is concern for developing a deficiency. Administered 1 mL of Vitamin B12 intramuscularly in the office. Ordered lab work to check B12, folate, vitamin D, magnesium, and iron to assess for deficiencies related to weight loss. (4) ANDREIA (obstructive sleep apnea): Code(s): G47.33 - Obstructive sleep apnea (adult) (pediatric) Category: Medical Plan: The patient self-discontinued his CPAP machine two months ago and feels it is no longer necessary since his weight loss. He declined an offer for a repeat sleep study. Will discontinue the CPAP prescription and related supplies as requested. (5) Knee pain: Code(s): M25.569 - Pain in unspecified knee Category: Medical Plan: The patient's knee pain continues to limit his ability to exercise. He was offered a referral to physical therapy but declined at this time. Plan Plan Patient was informed and verbally consented to the use of an ambient scribe for clinic note documentation during this visit. 1. Morbid Obesity The patient has had excellent results with weight loss and is currently on the maximum dose of his medication. Will continue to prescribe Zepbound and plan to submit a prior authorization or appeal to his insurance, [employer], if coverage is denied in the future, citing his significant progress. He is cleared for bariatric surgery and has upcoming pre-operative testing. He was encouraged to continue his current diet, as it has been effective, despite conflicting advice from a development technologist. 2. Dyslipidemia The patient's lipid profile has improved dramatically, with his LDL and triglycerides now within normal limits. His HDL remains low at 33 mg/dL. Ordered a fasting lipid panel for today's visit. He was educated on increasing HDL through dietary sources of healthy fats, such as avocados and nuts. 3. History Of Vitamin B12 Deficiency Due to a history of deficiency and a recent downward trend in his B12 levels post-weight loss, there is concern for developing a deficiency. Administered 1 mL of Vitamin B12 intramuscularly in the office. Ordered lab work to check B12, folate, vitamin D, magnesium, and iron to assess for deficiencies related to weight loss. 4. Obstructive Sleep Apnea The patient self-discontinued his CPAP machine two months ago and feels it is no longer necessary since his weight loss. He declined an offer for a repeat sleep study. Will discontinue the CPAP prescription and related supplies as requested. 5. Knee Pain The patient's knee pain continues to limit his ability to exercise. He was offered a referral to physical therapy but declined at this time. Discussion Notes I commended the patient on his outstanding weight loss progress and the resulting significant improvements in his cholesterol panel, noting his LDL is now at an excellent level of 57 mg/dL. I advised him that his HDL cholesterol is low and we discussed incorporating healthy fats like avocados to help improve it. We addressed the conflicting dietary advice from his development technologist; I validated his current, effective approach and encouraged him to continue what has been working for him. I explained that his vitamin B12 levels are trending downward, which can occur with rapid weight loss, and administered a B12 injection in the office today. We will also check his vitamin and mineral levels via blood work. The patient reported he stopped using his CPAP, and after he declined a new sleep study, I agreed to discontinue the prescription. I reassured him that I would advocate on his behalf with his insurance company by submitting an appeal if needed to ensure continued coverage for his weight loss medication, Zepbound, given his documented success. We scheduled a follow- up visit in three months to monitor his progress. Orders: Orders Vitamin A Today Z00.00 - Encounter for general adult medical examination without abnormal findings Vitamin D 25-OH Total Today Z00.00 - Encounter for general adult medical examination without abnormal findings Magnesium Today Z00.00 - Encounter for general adult medical examination without abnormal findings Comprehensive Met. Panel Today Z00.00 - Encounter for general adult medical examination without abnormal findings AMB Hemoglobin A1c Today R73.03 - Prediabetes Vitamin B12 and Folate Today Z00.00 - Encounter for general adult medical examination without abnormal findings Vitamin B1 Today Z00.00 - Encounter for general adult medical examination without abnormal findings Zinc Today Z00.00 - Encounter for general adult medical examination without abnormal findings Complete Blood Count no Diff Today Z00.00 - Encounter for general adult medical examination without abnormal findings Ferritin Today D64.9 - Anemia, unspecified IRON PROFILE Today D64.9 - Anemia, unspecified Lipid Panel Today Z00.00 - Encounter for general adult medical examination without abnormal findings TSH reflex Free T4 Today Z00.00 - Encounter for general adult medical examination without abnormal findings Medications: Discontinued CPAP (CPAP Machine/Device) Discontinued Reason: Doctor's Order As directed 1 ea 0RF Patient Instructions: Patient Instructions - Please go for fasting blood work to check your cholesterol, vitamins, and minerals. - You received a Vitamin B12 injection today, which can help with energy. - Continue with your current diet, as it is working very well for you. - Try to eat more healthy fats, such as avocados, to help raise your good cholesterol. - I will cancel your prescription for the sleep apnea (CPAP) machine as we discussed. - I will continue to send your prescription for Zepbound and will fight the insurance company if they try to stop covering it. - Please schedule a follow-up appointment with me in three months.
[2025-06-22 11:11] VITALS: BP 100/55; PULSE 84; RESP 16; TEMP 36.4; O2SAT 96; BMI 63.4
== END 2025-06-22 11:52 | disposition home or self-care (01) ==
LOC: HO.HMCSH 11:05
PROVIDERS: PCP Physician Assistant Medical; Visit Provider Physician Assistant Medical
DX: E66.01 Morbid (severe) obesity due to excess calories (principal); Z68.44 Body mass index [BMI] 60.0-69.9, adult; E78.5 Hyperlipidemia, unspecified; E53.8 Deficiency of other specified B group vitamins; G47.33 Obstructive sleep apnea (adult) (pediatric); M25.569 Pain in unspecified knee; R73.03 Prediabetes

== ENCOUNTER → 2025-06-22 11:05 | Outpatient (BNVA) | payer OTHER, SELFPAY | PROVIDERS: PCP Physician Assistant Medical; Visit Provider Physician Assistant Medical | DX: E66.01 Morbid (severe) obesity due to excess calories (principal); E78.5 Hyperlipidemia, unspecified; E53.8 Deficiency of other specified B group vitamins; G47.33 Obstructive sleep apnea (adult) (pediatric); M25.569 Pain in unspecified knee; Z68.44 Body mass index [BMI] 60.0-69.9, adult; Z79.899 Other long term (current) drug therapy | CPT/HCPCS: 83036; 96127; 96372; J3420 ==

== ENCOUNTER 2025-06-23 13:29 | Outpatient (REF) | payer OTHER, SELFPAY ==
--- NOTE | ~2025-06-23 | XR_ITS ---
EXAMINATION: XR CHEST CLINICAL INFORMATION: E66.01 - Morbid (severe) obesity due to excess calories COMPARISON: None available. TECHNIQUE: 2 views of the chest were obtained. FINDINGS: The cardiomediastinal silhouette is within normal limits. The lungs are well expanded. There is no focal consolidation, edema, or effusion. No pneumothorax. No acute osseous abnormality. Thoracic spine spondylosis. XR/XR chest 2V IMPRESSION: No acute cardiopulmonary findings. Electronically signed by: Dieudonne Fitzgerald MD 06/23/2025 04:13 PM [facility]
--- NOTE | 2025-06-23 13:46 | ECG_ITS ---
Test Reason : E66.01 Blood Pressure : */* mmHG Vent. Rate : 79 BPM Atrial Rate : 79 BPM P-R Int : 180 ms QRS Dur : 94 ms QT Int : 372 ms P-R-T Axes : 42 -22 29 degrees QTcB Int : 426 ms Normal sinus rhythm Normal ECG When compared with ECG of 09-Jan-2023 10:04, No significant change was found Referred By: Joey De Luna Electronically Signed By: SADIA STEWART
== END 2025-06-23 13:30 | disposition home or self-care (01) ==
LOC: HO.XRAY 13:29
PROVIDERS: PCP Physician Assistant Medical; Visit Provider Surgery
DX: E66.01 Morbid (severe) obesity due to excess calories (principal)
CPT/HCPCS: 71046; 93005

== ENCOUNTER → 2025-06-23 13:32 | Outpatient (BNV) | payer OTHER, SELFPAY | PROVIDERS: PCP Physician Assistant Medical; Visit Provider Radiology Diagnostic Ultrasound | DX: E66.01 Morbid (severe) obesity due to excess calories (principal); Z68.43 Body mass index [BMI] 50.0-59.9, adult | CPT/HCPCS: 71046 ==

== ENCOUNTER → 2025-06-23 13:46 | Outpatient (BNV) | payer OTHER, SELFPAY | PROVIDERS: PCP Physician Assistant Medical; Visit Provider Internal Medicine | DX: E66.01 Morbid (severe) obesity due to excess calories (principal) | CPT/HCPCS: 93010 ==

== ENCOUNTER 2025-06-28 10:30 | Outpatient (AMB) | payer OTHER, SELFPAY ==
--- NOTE | 2025-06-28 11:18 | A.OFFVIS_ITS ---
Intake Visit Reasons: Low testosterone, ED(set) Intake Note: Reason for Visit: New Patient Low Testosterone, Erectile Dysfunction Urology Meds: None Blood Thinners: None Labs: Total PSA: 0.28 Total Testosterone: 273 (03/02/2025) A1C:6.0 (09/08/2024) Imaging: None Last PVR: None Family History: Prostate Cancer? No Bladder Cancer? No Kidney Cancer? No Previous Urology? No Banking Consultant Required: No Accompanied by: Self / Same As Patient Allergies shrimp Allergy (Unknown, Verified 06/28/25 11:19) Stomach Upset HPI Comments Details: Alli is a pleasant male. He is a patient of Dr. Seth. He is seen for the following urologic conditions - low testosterone Low normal testosterone Has had difficulty with erections Recent 100 lb weight loss has another 200 to go Discussed laboratory findings Repeat lab work Trial daily tadalafil Repeat lab work in three-month [facility] Medical History (Updated 06/27/25 @ 11:57 by Sandra Dunbar RN) Knee pain ANDREIA (obstructive sleep apnea) Vitamin B12 deficiency Morbid obesity with BMI of 60.0-69.9, adult Erectile dysfunction Low testosterone Throat pain Elevated liver enzymes Hyperlipidemia LDL goal <100 Elevated ALT measurement Prediabetes Hypertension Obstructive sleep apnea on CPAP Surgical History Hx of carpal tunnel repair Family History Mother No problems noted. Father No problems noted. Social History Housing: Apartment Alcohol intake: current Alcohol intake frequency: holidays/special occasions only Patient Tobacco Use Status: Former Tobacco user Cigarettes Per Day: 2 e-Cigarette/Vaping Use: Never Used Second Hand Smoke Exposure: Yes service: No Current occupational status: employed Cognitive needs: No Hearing needs: No Vision needs: Yes (rx glasses/ contacts) Review of Systems Const Denies chills and Denies fever(s) Card Reports no additional complaints and Denies syncope Resp Denies cough GI Denies abdominal pain and Denies heartburn Reports as per HPI and Denies change in libido Neuro Denies syncope Psych Denies change in libido Endo Denies change in libido Physical Exam Const General: cooperative, healthy appearing, comfortable and no acute distress Orientation/consciousness: patient oriented x3 HEENT Face and sinus: Yes normal facial exam Mouth: moist mucous membranes Neck Neck: Yes normal visual inspection, Yes full ROM and Yes trachea midline Chest Chest palpation & inspection: normal inspection of the chest Resp Effort & Inspection: normal respiratory effort, able to speak in complete sentences and no respiratory distress GI Inspection: Yes normal to inspection Back/Spine/Pelvis Cervical Spine: normal cervical lordosis Thoracic/Lumbar Spine: thoracic and lumbar spine normal to inspection Skin General skin exam: no rashes or lesions noted Neuro General: patient oriented x3, gait normal, tone normal and moves all extremities Extrem General: Yes normal to inspection and Yes capillary refill normal Assessment & Plan Assessment & Plan (1) Erectile dysfunction: Code(s): N52.9 - Male erectile dysfunction, unspecified Category: Medical (2) Low testosterone: Code(s): R7. - Other specified abnormal findings of blood chemistry Category: Medical Plan Repeat lab work 10 weeks follow-up Orders: Orders Lutenizing Hormone Today R7. - Other specified abnormal findings of blood chemistry Estrad Free (Tot Ultra + Free) Today R7. - Other specified abnormal findings of blood chemistry Follicle Stimulating Hormone Today R7.89 - Other specified abnormal findings of blood chemistry Testosterone, Free/Total Today R7.89 - Other specified abnormal findings of blood chemistry Testosterone, Free/Total 10 Weeks R7.89 - Other specified abnormal findings of blood chemistry Medications: New tadalafil [id number] [facility] [id number] Member [id number] 5 mg PO DAILY 90 tabs 1RF sexual activity 90 days R7. - Other specified abnormal findings of blood chemistry Patient Instructions: This note is constructed using voice recognition software. While every effort has been made to ensure accuracy clinical assistant errors may have been included. Imaging studies, laboratory and physical exam results were discussed and reviewed in detail. No major barriers to patient understanding were identified. An opportunity to ask questions regarding the treatment plan was provided. All questions were answered. The patient expressed understanding and agreement with the above treatment plan. The patient is aware they should contact our office by phone for worsening of their current condition or the appearance of new urologic symptoms. Compliance is encouraged with any medications and followup testing that is ordered. It is a privilege to participate in the urologic care of your patient. If you have any questions or concerns regarding treatment for the above conditions, or other urologic issues, please do not hesitate to contact me. The office telephone contact is [phone]. Sincerely, Dr Andreas Simental MD, [facility] - Urology Compassionate Specialist Care for the Genitourinary System Coding Level of Care Code New Pt Level 4 (98026) Diagnoses Erectile dysfunction N52.9 Low testosterone R79.89
== END 2025-06-28 11:31 | disposition home or self-care (01) ==
LOC: HO.HUSH 10:31
PROVIDERS: PCP Internal Medicine; Visit Provider Urology
DX: N52.9 Male erectile dysfunction, unspecified (principal); R79.89 Other specified abnormal findings of blood chemistry
CPT/HCPCS: 99204

== ENCOUNTER 2025-06-28 11:34 | Outpatient (REF) | payer OTHER, SELFPAY ==
[2025-06-28 12:47] LABS: Hematocrit 48.2 % (42.0-52.0); Hemoglobin 15.6 g/dl (14.0-18.0); Mean Corpuscular HGB Conc 32.4 g/dl (31.0-36.0); Mean Corpuscular Hemoglobin 30.2 pg (27.0-33.0); Mean Corpuscular Volume 93.4 fL (80.0-98.0); NRBC Abs Auto 0.000 X10*3/uL (0.0-0.012); NRBC Pct Auto 0.0 /100WBC (0.0-0.2); Platelet Count 227 X10*3/uL (160-400); Red Blood Count 5.16 X10*6/uL (4.60-5.80); White Blood Count 8.3 X10*3/uL (4.8-10.8)
[2025-06-28 13:50] LABS: Alanine Aminotransferase 26 U/L (0-40); Albumin Level 4.3 g/dL (3.5-5.0); Alkaline Phosphatase 69 U/L (39-117); Anion Gap 10 (12-20); Aspartate Amino Transferase 25 U/L (5-37); Blood Urea Nitrogen 13 mg/dL (9-16); Calcium 9.1 mg/dL (8.4-10.2); Carbon Dioxide 27 mmol/L (22-29); Chloride 106 mmol/L (96-108); Cholesterol 163 mg/dL (<200); Estimated Glomerular Filt Rate > 60; HDL Cholesterol 38 mg/dL (>40); Iron 82 mcg/dL (45-160); Magnesium 2.0 mg/dL (1.6-2.6); Percent Iron Saturation 43 % (15-50); Potassium 4.2 mmol/L (3.3-5.1); Sodium 139 mmol/L (135-145); Total Iron Binding Capacity 192 mcg/dL (228-428); Total Protein 7.7 g/dL (6.5-8.0); Triglycerides 96 mg/dL (<150); Unsaturated Iron Binding 110 ug/dL
[2025-06-28 13:55] LABS: Ferritin 634 ng/mL (20-250)
[2025-06-28 14:14] LABS: Folate 10.8 ng/mL (> or = 4.0); Vitamin B12 865 pg/mL (200-900)
[2025-06-29 04:43] LABS: Follicle Stimulating Hormone 1.6 mIU/mL (1.4-12.8)
== END 2025-06-28 11:35 | disposition home or self-care (01) ==
LOC: HO.LAB 11:34
PROVIDERS: Physician Assistant Medical; Visit Provider Urology
DX: Z00.00 Encounter for general adult medical examination without abnormal findings (principal); R79.89 Other specified abnormal findings of blood chemistry; D64.9 Anemia, unspecified
CPT/HCPCS: 36415; 80053; 80061; 82306; 82607; 82670; 82681; 82728; 82746; 83001; 83002; 83540; 83735; 84402; 84403; 84425; 84443; 84590; 84630; 85027